=== PATIENT | female | born 1995 | race Caucasian/White ===

== ENCOUNTER → 2018-06-02 15:23 | Outpatient (CLI) | payer BC, SELFPAY ==
[2018-06-02 18:18] LABS: Chlamydia Trachomatis by PCR Negative (Negative); Neisserai gonorrhoeae by PCR Negative (Negative); Probe Check PASS; Sample Adequacy Control PASS; Specimen Processing Control PASS
[2018-06-06 10:29] LABS: HPV Reflexed? NOT INDICATED
== END ==
PROVIDERS: Family Provider Family Medicine; PCP Family Medicine; Visit Provider Obstetrics & Gynecology
DX: Z11.3 Encounter for screening for infections with a predominantly sexual mode of transmission (principal); Z12.4 Encounter for screening for malignant neoplasm of cervix; Z12.72 Encounter for screening for malignant neoplasm of vagina
CPT/HCPCS: 87491; 87591; 88175; G0145

== ENCOUNTER 2018-07-01 08:21 | Day surgery (SDC) | payer BC, SELFPAY ==
[2018-06-26 16:12] LABS: Hematocrit 43.4 % (37-47); Hemoglobin 14.6 g/dl (12.0-15.0); Mean Corp Hgb Conc 33.6 g/gl (32-36); Mean Corpuscular Hgb 27.8 pg (27.0-32.0); Mean Corpuscular Volume 82.5 fL (81-99); Mean Platelet Vol. 10.8 fl (6.2-12.0); Platelet Count 382 K/mm3 (150-450); RBC Distribution Width CV 12.8 % (11.6-14.6); RBC Distribution Width SD 38.6 fl (35.1-43.9); Red Blood Count 5.26 M/mm3 (4.2-5.4)
[2018-06-26 16:13] LABS: Scan Indicated on CBC? Y/N NO
[2018-06-26 16:21] LABS: Prothrombin Time (Protime)PT. 12.9 SECONDS (11.7-14.9)
[2018-06-26 16:22] LABS: Partial Thromboplast Time 32.6 Seconds (24.1-36.2)
[2018-06-26 16:42] LABS: Pregnancy, Serum, hCG Quali. NEGATIVE Negative (0-9 Nonpreg)
[2018-07-01] VITALS (7 sets, daily range): BP systolic 107–121; BP diastolic 35–68; PULSE 78–109; RESP 16; TEMP 36.3–36.6; O2SAT 90–99; BMI 41.3
[2018-07-01 09:01] LABS: Internal QC Validated? YES +Cl - CLEAR BKGD; Pregnancy, Urine Negative Negative
--- NOTE | 2018-07-01 10:00 | OV_PTH ---
PATIENT: DAVI CAMARA LOC: [facility] U#:[id number] AGE/SX: 23/F ROOM: RE07/01/[address]: Dr. Parish Desai MD : 1995 BED: DIS: 07/01/2018 SPEC #: [id number] RECD: 07/01/18 13:53 STATUS: TOM ISAAC #: [id number] MEENA: 07/01/18 10:[address]: Parish Desai DEPT: SURGICAL PATHOLOGY RECD BY: Mirian Cazares ENTERED: 07/01/18 14:22 SP TYPE: OVARY OTHR DR: Dr. Dhruv Walls MD Tissues: OVARIAN CYST Procedures: Surgery Specimen Level IV HEADER OPERATION: Diagnostic laparoscopy, excision left peritubal cyst PRE-OP DIAGNOSIS: Chronic pelvic and perineal pain TISSUE SUBMITTED: Peritubal cyst, left MICROSCOPIC DIAGNOSIS Left peritubal cyst, excision: Benign epithelial cyst. AM:edwin 07/02/18 COMMENT Case has been reviewed in consultation with Dr. Pastrana who concurs with the above diagnosis. IDC:BAHMAN MICROSCOPIC DESCRIPTION Slides are reviewed. GROSS DESCRIPTION Received in fixative is one container labeled with the patient's name and designated left paratubal cyst. The specimen consists of three variable size pieces of huff-white to huff-pink cystic tissue that in aggregate measure 1.5 x 1 x 0.2 cm. The entire specimen is submitted in one cassette. / BAHMAN:edwin 07/01/18 TC:5 CPT: 00235
--- NOTE | 2018-07-01 10:07 | PCM.DC ---
- Discharge Diagnoses Reason(s) for Visit for Discharge Instructions: S/P Diagnostic Laparoscopy You will use the following diet at home:: Regular Your food should be the consistency of: Regular Discharge Activity: Return to Normal Activity, No Restrictions, May Drive, May not drive while taking narcotic pain medications., May Shower Return to work on:: 07/15/18 May shower in (days): 0 May resume sexual activity in: 2 weeks Call your doctor if your incision/area has: Sudden Increased Bleeding, Increased Pain/ Swelling, Increased Redness, Foul Smelling Discharge, Swelling at the incision site Call your doctor if you observe: Fever of 101 or Higher, Inability to urinate, Inability to have a bowel movement, Using more than one pad per hour, Shortness of breath, Chest pain, Calf discomfort, Uncontrolled pain Remove Dressing in (days):: 2 Cleanse incision/area with: Soap & Water Allergies/Adverse Reactions: Allergies No Known Allergies Allergy (Verified 06/24/18 11:02) Medications to take at Discharge traMADol [Ultram (G)] 50 mg PO Q6H PRN PRN 06/24/18 Ibuprofen 600 mg PO Q6H PRN PRN #30 tab 07/01/18 Oxycodone [Oxyir] 5 mg PO Q4H PRN PRN 7 Days #20 tab 07/01/18 The following prescriptions were given: Oxycodone [Oxyir] 5 mg PO Q4H PRN PRN 7 Days #20 tab PRN Reason: Severe Pain (6-10/10) Ibuprofen 600 mg PO Q6H PRN PRN #30 tab PRN Reason: pain or cramping Primary Care Physician: Dhruv Walls MD [Primary Care Provider] - Test Results: Test results from this visit will be discussed in further detail at your follow-up appointment, if applicable. Please Follow Up With: Parish Desai MD When: one week Proposed Discharge Date: 07/01/18
--- NOTE | 2018-07-01 10:10 | PCM.OPRPT ---
Problem List (1) Pelvic pain Status: Chronic Report of Operation Date of Procedure: 07/01/18 Pre-Operative Diagnosis: Chronic Pelvic Pain Post-Operative Diagnosis: Same Surgery/Procedure Performed:: Diagnostic Laparoscopy, Left Paratubal Cystectomy Description of Surgical Findings:: Normal appearing uterus with some scarring between lower anterior uterus and bladder. No evidence of endometriosis. Normal appearing ovaries. Left fallopian tube with few small paratubal cysts. Right tube normal. Appendix surgically absent. Normal appearing liver. Gallbladder surgically absent. No unusual abdominal or pelvic scarring. limehouse worker: Luciano Marti Type of Anesthesia:: General Anesthesiologist: Karlo Talamantes Special Medications: none Specimen's removed: Left paratubal cysts Drains: none Estimated Blood Loss (mL): Minimal Fluids Replaced: 1000cc LR Description of Procedure: Stephanie was taken to the OR with IV running. She was given 2 grams of Cefotetan intravenously prior to the case for surgical prophylaxis. SCDs were in place and operational throughout the case. General anesthesia was then introduced without complication. She was then prepped and draped in the dorsal lithotomy position. A red rubber catheter was used to drain the bladder. A uterine manipulator was placed. Attention was then directed to the abdomen where a 5 mm incision was made vertically in the lower base of the umbilicus. The underlying subcutaneous tissue was dissected down to the level of fascia using blunt dissection with a Erma clamp. The abdominal wall was then elevated and a Veress needle was placed through the umbilical defect into the abdomen. The abdomen was then inflated to a pressure of 15 Torr with CO2 gas. The Veress needle was then removed and replaced with a 5mm laparoscopic trocar and sleeve. The trocar was removed and replaced with the laparoscope. Two 5 mm side ports were placed. One was placed on the left side and one on the right approximately 3 cm below the level of the umbilicus lateral to the inferior epigastric vessels. A thorough survey of the abdomen and pelvis was then performed with findings as mentioned above. Using the endoshears the left paratubal cysts were resected and removed through the lateral side port. The laparoscopic ports were then removed under direct observation with the laparoscope. Hemostasis was excellent. The gas was evacuated from the umbilical port. The skin incisions were closed with 4-0 Monocryl suture and injected with 0.5% Marcaine. The uterine manipulator was removed. Sponge, lap, instrument and needle counts were correct. She was reversed from anesthesia and taken to the recovery room in stable condition. Grafts/Implants Used: none - Complications none - Admit VTE Documentation VTE Present on Admission: No VTE Mechan Device Prophylaxis: SCD's VTE Pharm Prophylaxis ordered?: No
[2018-07-01] MEDS: Bupivacaine Mpf 0.5% 30 ML VIAL (10:30)
[2018-07-01] MEDS: oxyCODONE 5 MG Tablet PO (11:55)
== END 2018-07-01 13:02 | disposition home or self-care (01) ==
LOC: SDC 08:21 → AC 08:23
PROVIDERS: Family Provider Family Medicine; PCP Family Medicine; Visit Provider Obstetrics & Gynecology
PROC: (CPT 49320; principal; 2018-07-01 09:45)
DX: L72.0 Epidermal cyst (principal); G89.29 Other chronic pain; R10.2 Pelvic and perineal pain; N83.8 Other noninflammatory disorders of ovary, fallopian tube and broad ligament; Z86.711 Personal history of pulmonary embolism
CPT/HCPCS: 58662; 36415; 81025; 84703; 85027; 85610; 85730; 86850; 86900; 88305; J7120; J2405

== ENCOUNTER → 2018-08-26 11:51 | Outpatient (CLI) | payer BC, SELFPAY ==
[2018-08-26 14:38] LABS: Chlamydia Trachomatis by PCR Negative (Negative); Neisserai gonorrhoeae by PCR Negative (Negative); Probe Check PASS; Sample Adequacy Control PASS; Specimen Processing Control PASS
== END ==
PROVIDERS: Visit Provider Obstetrics & Gynecology
DX: Z11.3 Encounter for screening for infections with a predominantly sexual mode of transmission (principal); Z32.01 Encounter for pregnancy test, result positive
CPT/HCPCS: 87491; 87591

== ENCOUNTER → 2018-09-09 10:25 | Outpatient (CLI) | payer BC, SELFPAY ==
[2018-09-09 12:40] LABS: Absolute Neutrophil Count 6.4 X10^3/uL (2.0-7.7); Basophil# 0.02 X10^3/uL; Basophil% 0.2 % (0-1); Eosinophil# 0.07 X10^3/uL; Eosinophils% 0.7 % (0-5); Hematocrit 38.7 % (37-47); Hemoglobin 13.1 g/dl (12.0-15.0); Lymphocyte % 26.2 % (19-41); Mean Corp Hgb Conc 33.9 g/gl (32-36); Mean Corpuscular Hgb 27.3 pg (27.0-32.0); Mean Corpuscular Volume 80.8 fL (81-99); Mean Platelet Vol. 10.8 fl (6.2-12.0); Monocyte# 0.81 X10^3/uL; Monocyte% 8.2 % (0-10); Neutrophil # 6.39 X10^3/uL (2.7-7.7); Neutrophil % 64.5 % (47-70); Platelet Count 378 K/mm3 (150-450); RBC Distribution Width CV 13.3 % (11.6-14.6); RBC Distribution Width SD 38.2 fl (35.1-43.9); Red Blood Count 4.79 M/mm3 (4.2-5.4); White Blood Count 9.9 K/mm3 (4.4-11.0)
[2018-09-09 12:41] LABS: POSITIVE COUNT NO; POSITIVE DIFFERENTIAL NO; POSITIVE MORPHOLOGY NO
[2018-09-09 12:52] LABS: Color, Urine Yellow (Yellow); Glucose, Dipstick Normal (Normal); Ketone-Dipstick Negative (Negative); Leukocyte Esterase-Dipstick 25 /ul (Negative); Nitrite-Dipstick Negative (Negative); Occult Blood-Urine Negative /ul (Negative); Protein-Dipstick Negative (Negative); Urine Bilirubin Dipstick Negative (Negative); Urine Clarity Clear (Clear); Urine Urobilinogen Normal (Normal); Urine pH 6.5 (5.0 - 8.0)
[2018-09-09 13:01] LABS: COTININE Drug Screen Negative (<200 ng/mL)
[2018-09-09 13:08] LABS: Amphetamine Urine VISTA NEGATIVE (<1000 ng/mL); Barbiturate Urine VISTA NEGATIVE (< 200 ng/mL); Benzodiazepine Urine VISTA NEGATIVE (< 200 ng/mL); Cocaine Urine VISTA NEGATIVE (< 300 ng/mL); Ecstacy Urine VISTA NEGATIVE (< 500 ng/mL); Methadone Urine VISTA NEGATIVE (< 300 ng/mL); PCP Urine VISTA NEGATIVE (< 25 ng/mL); THC Urine VISTA NEGATIVE (< 50 ng/mL); Vista UDS pH Range 6
[2018-09-09 13:20] LABS: Thyroid Stim Hormone (TSH) 2.29 uIU/mL (0.358-3.74)
[2018-09-09 13:44] LABS: HIV - WCH Non-Reactive (Nonreactive); Rubella IgG 91.3 IU/mL
[2018-09-11 01:58] LABS: Prenatal RPR NONREACTIVE (NONREACTIVE)
[2018-09-11 11:12] LABS: HEPATITIS B SURFACE AG Negative (Negative); Hep C Antibodies <0.1 s/co ratio (0.0-0.9)
== END ==
PROVIDERS: Visit Provider Obstetrics & Gynecology
DX: Z34.81 Encounter for supervision of other normal pregnancy, first trimester (principal)
CPT/HCPCS: 36415; 80307; 81002; 84443; 85025; 86703; 86762; 86803; 87340

== ENCOUNTER → 2019-01-28 10:16 | Outpatient (CLI) | payer BC, SELFPAY ==
[2019-01-28 13:53] LABS: Hemoglobin 11.8 g/dl (12.0-15.0); Mean Corp Hgb Conc 32.8 g/gl (32-36); Mean Corpuscular Hgb 27.8 pg (27.0-32.0); Mean Corpuscular Volume 84.7 fL (81-99); Mean Platelet Vol. 10.6 fl (6.2-12.0); Platelet Count 309 K/mm3 (150-450); RBC Distribution Width SD 42.2 fl (35.1-43.9); Red Blood Count 4.25 M/mm3 (4.2-5.4); Scan Indicated on CBC? Y/N NO; White Blood Count 9.8 K/mm3 (4.4-11.0)
[2019-01-28 13:58] LABS: AST(SGOT) 10 U/L (15-37); Alanine Aminotransfer ALT/SGPT 16 U/L (13-56); Glucose Challenge Gest 1H 50g 179 mg/dL (70-140)
== END ==
PROVIDERS: Visit Provider Obstetrics & Gynecology
DX: Z34.83 Encounter for supervision of other normal pregnancy, third trimester (principal)
CPT/HCPCS: 36415; 82950; 84450; 84460; 84550; 85027

== ENCOUNTER → 2019-02-01 09:50 | Outpatient (CLI) | payer BC, SELFPAY ==
[2019-02-01 11:32] LABS: Glucose GTT-Gestational 1 Hr 186 mg/dL (<190)
[2019-02-01 11:33] LABS: Glucose GTT-Gestation. Fasting 94 mg/dL (<105)
[2019-02-01 12:51] LABS: Glucose GTT-Gestational 2 Hr 124 mg/dL (<165)
[2019-02-01 14:25] LABS: Glucose GTT-Gestational 3 Hr 96 L (<145)
== END ==
PROVIDERS: Referring Provider Obstetrics & Gynecology; Visit Provider Obstetrics & Gynecology
DX: O24.912 Unspecified diabetes mellitus in pregnancy, second trimester (principal); Z3A.00 Weeks of gestation of pregnancy not specified
CPT/HCPCS: 36415; 82951; 82952

== ENCOUNTER 2019-02-21 14:45 | Outpatient (CLI) | payer BC, SELFPAY ==
[2019-02-21 14:59] VITALS: BMI 42.2
[2019-02-21 15:36] LABS: Bacteria 0 SEEN /hpf (None Seen); Mucous, Urine 0 SEEN /hpf (<or=2+); Red Blood Cells-Urine 0 SEEN /hpf (0-5); Squamous Epithelial Cells - UA 0 SEEN /hpf (5-10)
[2019-02-21 15:38] LABS: Color, Urine Straw (Yellow); Glucose, Dipstick Normal (Normal); Ketone-Dipstick 5 mg/dl (Negative); Leukocyte Esterase-Dipstick 100 /ul (Negative); Nitrite-Dipstick Negative (Negative); Occult Blood-Urine 250 /ul (Negative); Protein-Dipstick 30 mg/dl (Negative); Specific Gravity, Urine 1.015 (1.002-1.030); Urine Bilirubin Dipstick Negative (Negative); Urine Clarity Cloudy (Clear); Urine Urobilinogen Normal (Normal)
[2019-02-21 15:44] LABS: White Blood Cells 50-100 SEEN /hpf (0-5)
--- NOTE | 2019-02-21 18:00 | OB.TRI.NOTE ---
History of Present Illness Date of Service: 02/21/19 Was patient seen by the physician?: No Reason For Visit: RULE OUT PRE E/Abdominal pain Date of Service: 02/21/19 Final CORA: 04/21/19 Final CORA Source: US <20 weeks Gestational age: 31 Weeks and 4 Days History of Present Illness: Complains of abdominal pain but not contraction like. Is worried about blood pressure Allergies No Known Allergies Allergy (Verified 06/24/18 11:02) Laboratory Studies: Laboratory Tests 02/21/19 Range/Units 15:30 Urine Color Straw (Yellow) Urine Clarity Cloudy (Clear) Urine pH 7.0 (5.0 - 8.0) Ur Specific [place] 1.015 (1.002-1.030) Urine Protein 30 H (Negative) mg/dl Urine Glucose (UA) Normal (Normal) mg/dl Urine Ketones 5 H (Negative) mg/dl Urine Occult Blood 250 H (Negative) /ul Urine Nitrite Negative (Negative) Urine Bilirubin Negative (Negative) mg/dL Urine Urobilinogen Normal (Normal) mg/dl Ur Leukocyte Esterase 100 H (Negative) /ul Urine RBC 0 SEEN (0-5) /hpf Urine WBC 50-100 SEEN (0-5) /hpf Ur Squamous Epith Cells 0 SEEN (5-10) /hpf Urine Bacteria 0 SEEN (None Seen) /hpf Urine Mucus 0 SEEN (<or=2+) /hpf Review of Systems Constitutional: Denies: Chills, Fever Cardiovascular: Denies: Chest Pain, Chest Pressure, Edema Respiratory: Denies: Cough, Shortness of Breath Gastrointestinal: Reports: Abdominal Pain - lower wrapping around to back Genitourinary: Reports: Frequency Neurological: Denies: Blurred vision, Double vision, Headaches Physical Exam General: Alert, Oriented x3, Cooperative, No apparent distress Lungs: Clear to auscultation, Normal air movement Abdomen: Soft, Non Tender, Non-Distended, Gravid, Appropriate for Gestational Age Extremities:: No edema Neurological: Neuro grossly intact BIOPROCESS DEVELOPMENT ENGINEER: Normal external genitalia Estimated gestational size: Appropriate for gestational size NST - FHR Rate Baby A Baseline: 150s Variability:: Moderate Accelerations:: 15 x 15 Decelerations:: None NST Reactive:: Yes, Appropriate for gestational age FHR Category:: Category I Uterine Activity:: none Impression/Plan BPs normal here with no signs of preeclampsia. Not in labor. Urinalysis with blood and WBC. Will treat for possible UTI.
== END 2019-02-21 16:00 | disposition home or self-care (01) ==
LOC: WPOUT 14:48 → WP 02-22 15:26
PROVIDERS: Visit Provider Obstetrics & Gynecology
DX: O26.893 Other specified pregnancy related conditions, third trimester (principal); R10.9 Unspecified abdominal pain; Z3A.31 31 weeks gestation of pregnancy
CPT/HCPCS: 59025; 59050; 81001; 99218; G0378

== ENCOUNTER 2019-02-22 16:50 | Outpatient (CLI) | payer BC, SELFPAY ==
[2019-02-21 14:59] VITALS: BMI 42.2
[2019-02-22 17:05] VITALS: BMI 42.3
[2019-02-22] MEDS: Phenazopyridine 95 MG Tablet 190 MG PO (17:49)
[2019-02-22 20:49] LABS: Absolute Lymphocyte Count 3.71 X10^3/ul (0.83-4.51); Absolute Neutrophil Count 8.5 X10^3/uL (2.0-7.7); Basophil# 0.03 X10^3/uL; Basophil% 0.2 % (0-1); Eosinophil# 0.05 X10^3/uL; Eosinophils% 0.4 % (0-5); Hematocrit 35.1 % (37-47); Hemoglobin 11.9 g/dl (12.0-15.0); Lymphocyte # 3.71 X10^3/ul (4.0); Lymphocyte % 28.1 % (19-41); Mean Corp Hgb Conc 33.9 g/gl (32-36); Mean Corpuscular Hgb 27.9 pg (27.0-32.0); Mean Corpuscular Volume 82.4 fL (81-99); Mean Platelet Vol. 10.3 fl (6.2-12.0); Monocyte# 0.85 X10^3/uL; Monocyte% 6.4 % (0-10); Neutrophil # 8.49 X10^3/uL (2.7-7.7); Neutrophil % 64.4 % (47-70); POSITIVE COUNT NO; POSITIVE DIFFERENTIAL NO; POSITIVE MORPHOLOGY NO; Platelet Count 264 K/mm3 (150-450); RBC Distribution Width SD 41.8 fl (35.1-43.9); Red Blood Count 4.26 M/mm3 (4.2-5.4); White Blood Count 13.2 K/mm3 (4.4-11.0)
[2019-02-22 20:57] LABS: Anion Gap 10 (5-15); Chloride 108 mmol/L (98-107); Potassium 3.5 mmol/L (3.5-5.1); Sodium Level 139 mmol/L (136-145)
[2019-02-22] MEDS: Cefazolin 2 GM in 0.9% Normal Saline 100 ML IV (21:20)
[2019-02-22] MEDS: Acetaminophen 500 MG Tablet 1000 MG PO (22:04)
[2019-02-22] MEDS: Enoxaparin 60 MG/0.6 ML Syringe SC (23:21)
[2019-02-23] MEDS: Terbutaline 1 MG/ML Vial 0.25 MG SC (01:21)
[2019-02-23] MEDS: Dextrose 5%-Lactated Ringers 1,000 ML 150 ML IV (02:36)
[2019-02-23] MEDS: morphine 10 MG/ML Syringe IM (04:03)
[2019-02-23] MEDS: Cefazolin 1 GM/50 ML BAG IV ×2 (04:40→12:30)
--- NOTE | 2019-02-23 06:48 | OB.TRI.HP_ITS ---
History of Present Illness Was patient seen by the physician?: Yes Reason For Visit: BACK PAIN Date of Service: 02/23/19 Final CORA Source: US <20 weeks Gestational age: 31+ weeks History of Present Illness: 31+ week intrauterine presents with right lower back pain. Patient is being treated for urinary tract infection with Macrobid and her pain became increasingly worse. She describes the pain is constant and dull and more severe than she has had in the past. Some crampiness is noted in the front. Allergies No Known Allergies Allergy (Verified 06/24/18 11:02) Laboratory Studies: Laboratory Tests 02/22/19 02/22/19 Range/Units 20:35 20:35 WBC 13.2 H (4.4-11.0) K/mm3 RBC 4.26 (4.2-5.4) M/mm3 Hgb 11.9 L (12.0-15.0) g/dl Hct 35.1 L (37-47) % MCV 82.4 (81-99) fL MCH 27.9 (27.0-32.0) pg MCHC 33.9 (32-36) g/gl RDW 14.0 (11.6-14.6) % RDW Differential 41.8 (35.1-43.9) fl Plt Count 264 (150-450) K/mm3 MPV 10.3 (6.2-12.0) fl Immature Gran % (Auto) 0.500 (0.0-0.9) % Neut % (Auto) 64.4 (47-70) % Lymph % (Auto) 28.1 (19-41) % Paulding % (Auto) 6.4 (0-10) % Eos % (Auto) 0.4 (0-5) % Baso % (Auto) 0.2 (0-1) % Absolute Neuts (auto) 8.5 H (2.0-7.7) X10^3/uL Absolute Lymphs (auto) 3.71 (0.83-4.51) X10^3/ul Total Counted Not Reportable Sodium 139 (136-145) mmol/L Potassium 3.5 (3.5-5.1) mmol/L Chloride 108 H (98-107) mmol/L Carbon Dioxide 21.0 (21.0-32.0) mmol/L Anion Gap 10 (5-15) Physical Exam General: Alert, Oriented x3, No apparent distress Abdomen: Non-Distended, Gravid Extremities:: No clubbing, No cyanosis Neurological: Cranial nerves II-XII grossly intact, Neuro grossly intact NST - FHR Rate Baby A NST Reactive:: Appropriate for gestational age Impression/Plan 31+ week intrauterine with low back pain likely from urinary tract inf ection. Monitored overnight and heart tones are reactive with occasional decelerations consistent with 31 weeks gestation. Patient has been given 2 doses of IV Ancef and we plan to resume Macrobid at home. Overnight she was also given Demerol and IM morphine to help control her pain. Some intermittent irritability on monitor but cervical exam is nonthreatening and not changing. Anticipate release to home later today.
--- NOTE | 2019-02-23 08:20 | US_ITS ---
STUDY: RENAL ULTRASOUND - COMPLETE REASON FOR EXAM: Female, 24 years old. Right flank pain. TECHNIQUE: Ultrasound evaluation of the kidneys was performed with real-time and static ha-scale imaging. COMPARISON: None. FINDINGS: RIGHT KIDNEY: Normal location of the right kidney, which is normal in size. The right kidney measures 11.9 cm x 7.2 cm x 5.3 cm. There is a normal cortex of the right kidney. The renal cortex measures 1.5 cm. There is no right renal mass or cyst. There are no right renal calculi. There is mild hydronephrosis of the right kidney. DISTAL RIGHT URETER: There is non-visualization of the distal right ureter. There is no demonstrated right ureterovesical junction calculus. There is a visualized right ureteral jet. LEFT KIDNEY: Normal location of the left kidney, which is normal in size. The left kidney measures 12.1 cm x 5.1 cm x 5.1 cm. There is a normal cortex of the left kidney. The renal cortex measures 1.1 cm. There is no left renal mass or cyst. There are no left renal calculi. There is no left hydronephrosis. DISTAL LEFT URETER: There is non-visualization of the distal left ureter. There is no demonstrated left ureterovesical junction calculus. There is a visualized left ureteral jet. BLADDER: The distended urinary bladder has a volume of 610 ml. The empty urinary bladder has a volume of 26 ml. There is a normal wall thickness of the distended urinary bladder. There is no demonstrated mass within the urinary bladder. There are no demonstrated bladder calculi. Incidental note is made of a 2.4 cm x 1.9 cm x 1.9 cm echogenic nodule in the right lobe of liver suggestive of a small hepatic hemangioma. US/Kidney and Bladder IMPRESSION: Mild degree of left hydronephrosis. Electronically Signed: Erik Hardwick, at 11:13 EDT , Service support ,
[2019-02-23] MEDS: oxyCODONE 5 MG Tablet PO (09:32)
[2019-02-23] MEDS: Acetaminophen 500 MG Tablet 1000 MG PO (12:28)
--- NOTE | 2019-02-23 12:37 | PCM.PN.OB ---
Subjective: Still having right flank and low back pain Objective: Afeb VSS - Physical Exam General: Alert, Oriented x3, Cooperative, No apparent distress Lungs: Clear to auscultation, Normal air movement Cardiovascular: Regular rate, Regular Rhythm Abdomen: Soft, Non Tender, Non-Distended Extremities: No edema Skin: No rashes Neurological: Neuro grossly intact Psych/Mental Status: Normal Affect Comment: FHR tracing CAT 1 Weight: 209 lb 3.499 oz Body Mass Index (BMI) 42.3 Intake and Output for Last 24 Hours 02/21/19 02/22/19 02/23/19 23:59 23:59 23:59 Intake Total 1918 / 1918 Output Total 775 / 775 Balance 1144 / 1144 Laboratory Tests Past 24 Hrs 02/22/19 02/22/19 20:35 20:35 WBC 13.2 H RBC 4.26 Hgb 11.9 L Hct 35.1 L MCV 82.4 MCH 27.9 MCHC 33.9 RDW 14.0 RDW Differential 41.8 Plt Count 264 MPV 10.3 Immature Gran % (Auto) 0.500 Neut % (Auto) 64.4 Lymph % (Auto) 28.1 Dickenson % (Auto) 6.4 Eos % (Auto) 0.4 Baso % (Auto) 0.2 Absolute Neuts (auto) 8.5 H Absolute Lymphs (auto) 3.71 Total Counted Not Reportable Sodium 139 Potassium 3.5 Chloride 108 H Carbon Dioxide 21.0 Anion Gap 10 Medical Necessity - Tobacco Use Smoking Status: Never smoker Assessment/Plan Renal US normal. Will continue to treat for possible pyelonephritis. Will discharge home on Keflex and oxycodone for pain. Has f/u with me in 2 days.
--- NOTE | 2019-02-23 12:41 | DCINST_ITS ---
You will use the following diet at home:: Regular Your food should be the consistency of: Regular Discharge Activity: Return to Normal Activity, May Drive, May not drive while taking narcotic pain medications., May Shower, May Take a Tub Bath Return to work on:: 03/01/19 May shower in (days): 0 May resume sexual activity in: No Restrictions Call your doctor if your incision/area has: Increased Pain/ Swelling Call your doctor if you observe: Fever of 101 or Higher, Inability to urinate, Inability to have a bowel movement, Using more than one pad per hour, Shortness of breath, Chest pain, Calf discomfort, Uncontrolled pain Allergies/Adverse Reactions: Allergies No Known Allergies Allergy (Verified 06/24/18 11:02) Medications to take at Discharge Enoxaparin Sodium [Lovenox] 60 mg SQ DAILY 02/21/19 Quq285/Iron/Folic/Dha [ Formula-Dha Softgel] 1 each PO DAILY 02/21/19 Cephalexin [Keflex] 500 mg PO Q12 #14 cap 02/23/19 Oxycodone [Oxyir] 5 mg PO Q6H PRN PRN 7 Days #20 tab 02/23/19 The following prescriptions were given: Oxycodone [Oxyir] 5 mg PO Q6H PRN PRN 7 Days #20 tab PRN Reason: strong pain Cephalexin [Keflex] 500 mg PO Q12 #14 cap Primary Care Physician: Care Physician,No Primary [Primary Care Provider] - Test Results: Test results from this visit will be discussed in further detail at your follow- up appointment, if applicable. Please Follow Up With: Parish Desai MD When: 2 days as scheduled Proposed Discharge Date: 02/23/19
== END 2019-02-23 13:42 | disposition home or self-care (01) ==
LOC: WPOUT 16:54 → WP 16:55
PROVIDERS: Referring Provider Obstetrics & Gynecology; Visit Provider Obstetrics & Gynecology
DX: O23.43 Unspecified infection of urinary tract in pregnancy, third trimester (principal); O76 Abnormality in fetal heart rate and rhythm complicating labor and delivery; Z3A.31 31 weeks gestation of pregnancy
CPT/HCPCS: 36415; 59025; 59050; 76770; 80051; 85025; 96372; 99218; G0378

== ENCOUNTER → 2019-03-10 18:03 | Outpatient (CLI) | payer BC, SELFPAY ==
[2019-02-22 17:05] VITALS: BMI 42.3
== END ==
PROVIDERS: Referring Provider Obstetrics & Gynecology; Visit Provider Obstetrics & Gynecology
DX: O23.43 Unspecified infection of urinary tract in pregnancy, third trimester (principal); Z3A.00 Weeks of gestation of pregnancy not specified
CPT/HCPCS: 87086; 87088

== ENCOUNTER → 2019-03-25 10:29 | Outpatient (CLI) | payer BC, SELFPAY | PROVIDERS: Visit Provider Obstetrics & Gynecology | DX: Z36.85 Encounter for antenatal screening for Streptococcus B (principal) | CPT/HCPCS: 87081 ==

== ENCOUNTER 2019-04-15 09:30 | Inpatient (IN) | payer BC, SELFPAY ==
[2019-04-15] VITALS (18 sets, daily range): BP systolic 102–133; BP diastolic 49–90; PULSE 75–112; RESP 16–20; TEMP 36.3–37.2; O2SAT 94–99; BMI 41.6
--- NOTE | 2019-04-15 04:38 | OP.PCM_ITS ---
Report of Operation Date of Procedure: 04/15/19 Pre-Operative Diagnosis: Previous Section Post-Operative Diagnosis: Same Surgery/Procedure Performed:: Repeat Low Transverse Section Description of Surgical Findings:: Some subcuticular scarring otherwise no significant abdominal scarring. Normal appearing uterus, ovaries, and fallopian tubes. Live female in vertex presentation. Apgars 9/9 weight [id number]. Normal appearing placenta. one piece expansion maker hand: Shraddha Seaman Type of Anesthesia:: Spinal Anesthesiologist: Allan Madden Special Medications: none Specimen's removed: none Drains: case Estimated Blood Loss (mL): 400cc Fluids Replaced: 1000cc LR Description of Procedure: Stephanie was taken to the OR with IV running. She was given two grams of Cefotetan intravenously for surgical prophylaxis. Spinal anesthesia was induced without complication. A case catheter was placed. She was then prepped and draped in the supine position with a leftward tilt. Once anesthesia was found to be adequate a Pfannensteil skin incision was made with the scalpel through the previous scar. The underlying subcutaneous tissue was then dissected down to the level of the fascia with sharp and blunt dissection. The fascia was then incised laterally in the midline. This incision was extended bilaterally using the Shabazz scissors. The upper portion of the fascial defect was then grasped with two Nidhi clamps, elevated and the rectus muscles dissected off with blunt and sharp dissection. In a similar fashion the rectus muscles were dissected off the lower fascial defect. The rectus muscles were in the midline. The peritoneum was identified and entered. The peritoneal defect was then extended using blunt retraction. A bladder blade was then placed. A bladder flap was then created and the bladder blade replaced. The lower uterine incision was incised in a transverse fashion. Once the cavity was entered the uterine defect was enlarged using blunt lateral and superior traction. The baby's head was then delivered with assist of the Kiwi device (one quick gentle pull) followed by the body. The mouth was then suctioned with a bulb suction. The cord was then clamped and cut. The baby was handed to the waiting nurse for evaluation. The placenta was then delivered manually. The uterus was exteriorized and cleared of all clot and membranes. The uterine incision was then repaired in two layers with #1 Vicryl with good hemostasis obtained. The posterior cul de sac and gutters were cleared of all clot and fluid. The uterus was returned to the abdomen. The peritoneum was then closed with 2-0 Vicryl. The rectus muscles were reapproximated with interrupted sutures of 0-Vicryl. The fascia was closed with a running stitch of #1 Stratofix suture. The subcutaneous tissue was reapproximated with 2-0 Vicryl. The skin was closed with a subcuticular stitch of 4-0 Monocryl. Sponge, lap, needle and instrument counts were correct. Stephanie was taken to the recovery room is stable condition. Grafts/Implants Used: none - Complications none - Admit VTE Documentation VTE Present on Admission: No VTE Mechan Device Prophylaxis: SCD's VTE Pharm Prophylaxis ordered?: Yes Delivery Classification: Scheduled Final CORA: 04/22/19 Final CORA Source: US <20 weeks Gestational age: 39 Weeks and 0 Days Indications for : - - three previous C/S Description of Procedure: she operative note portion Amniotic Membrane Rupture Type: Artificial Amniotic Fluid Description: Clear Placenta Disposition: [facility] Drain: Case to straight drain Cord Entanglement: None Nuchal Cord Compression: Without compression Cord Vessel Description: 3 Vessels Esitmated Blood Loss (ml): 400cc Gender: Female (1 minute): 9 (5 minute): 9 Delayed cord clamping: Yes Pre-op Antibiotic Given: Ancef 2 grams IV x1 Pt instructed on risks of surgery: Bleeding, Infection, Injury to surrounding structure(s) including bowel and bladder Complications: None - Admit VTE Documentation VTE Present on Admission: No VTE Mechan Device Prophylaxis: SCD's VTE Pharm Prophylaxis ordered?: Yes
[2019-04-15] MEDS: Lactated Ringers 1,000 ML 999 ML IV (10:15)
[2019-04-15 10:27] LABS: Absolute Lymphocyte Count 2.57 X10^3/ul (0.83-4.51); Absolute Neutrophil Count 5.4 X10^3/uL (2.0-7.7); Basophil# 0.02 X10^3/uL; Basophil% 0.2 % (0-1); Eosinophil# 0.06 X10^3/uL; Eosinophils% 0.7 % (0-5); Hematocrit 34.9 % (37-47); Hemoglobin 11.8 g/dl (12.0-15.0); Lymphocyte # 2.57 X10^3/ul (4.0); Lymphocyte % 28.8 % (19-41); Mean Corp Hgb Conc 33.8 g/gl (32-36); Mean Corpuscular Hgb 27.8 pg (27.0-32.0); Mean Corpuscular Volume 82.1 fL (81-99); Mean Platelet Vol. 10.5 fl (6.2-12.0); Monocyte# 0.88 X10^3/uL; Monocyte% 9.9 % (0-10); Neutrophil # 5.36 X10^3/uL (2.7-7.7); Platelet Count 225 K/mm3 (150-450); RBC Distribution Width CV 14.4 % (11.6-14.6); RBC Distribution Width SD 42.9 fl (35.1-43.9); Red Blood Count 4.25 M/mm3 (4.2-5.4); White Blood Count 8.9 K/mm3 (4.4-11.0)
[2019-04-15 10:28] LABS: POSITIVE COUNT NO; POSITIVE DIFFERENTIAL NO; POSITIVE MORPHOLOGY NO
[2019-04-15 10:38] LABS: Prothrombin Time (Protime)PT. 13.4 SECONDS (11.7-14.9)
[2019-04-15 10:39] LABS: Partial Thromboplast Time 25.2 Seconds (24.1-36.2)
[2019-04-15] MEDS: Lactated Ringers 1,000 ML 150 ML IV (11:51)
[2019-04-15] MEDS: Sodium Citrate/Citric Acid 30 ML UDC PO (12:00)
[2019-04-15] MEDS: Cefazolin 2 GM in 0.9% Normal Saline 100 ML IV (12:07)
--- NOTE | 2019-04-15 12:14 | DCINST_ITS ---
Discharge Diet: No Restrictions Discharge Activity: Return to Normal Activity, May Not Drive, May not drive while taking narcotic pain medications., May Shower Return to work on:: 06/15/19 May shower in (days): 0 May resume sexual activity in: 4 weeks Call your doctor if your incision/area has: Sudden Increased Bleeding, Increased Pain/ Swelling, Increased Redness, Foul Smelling Discharge, Swelling at the incision site Call your doctor if you observe: Fever of 101 or Higher, Inability to urinate, Inability to have a bowel movement, Using more than one pad per hour, Shortness of breath, Chest pain, Calf discomfort, Uncontrolled pain Remove Dressing in (days):: 5 Cleanse incision/area with: Soap & Water Additional Instructions: If you experience any of the following, contact your healthcare provider. * Bleeding that soaks a pad every hour for 2 hours * Fever 100.4 or higher * Unrelieved incision or abdominal pain * Swelling, redness, discharge or bleeding from your incision or episiotomy site * Your incision begins to separate * Problems urinating (including inability to urinate or burning while urina ting). * Visual changes * Severe headache * Flu-like symptoms * Pain or redness in one of both of your breasts * Pain, warmth, tenderness or swelling in your legs, especially the calf area * Frequent nausea and vomiting * Symptoms of depression or anxiety If you experience any of the following, call 911 or go to the nearest Emergency Room. * Chest pain * Problems breathing * Seizure activity * Partial or complete paralysis of a body part, slurred speech, weakness or drooping of the face, or a sudden inability to walk or hold your balance Allergies/Adverse Reactions: Allergies No Known Allergies Allergy (Verified 06/24/18 11:02) Medications to take at Discharge Enoxaparin Sodium [Lovenox] 60 mg SQ DAILY 02/21/19 [id number]/Iron/Folic/Dha [ Formula-Dha Softgel] 1 each PO DAILY 02/21/19 Cephalexin [Keflex] 500 mg PO Q12 #14 cap 02/23/19 Heparin Sodium,Porcine/Pf [Heparin Sod 5,000 Unit/0.5 ml] 5,000 unit SQ BID 04/15/19 Ibuprofen [Motrin] 600 mg PO Q6H PRN PRN #30 tab 04/15/19 Oxycodone [Oxyir] 5 - 10 mg PO Q4H PRN PRN 7 Days #30 tab 04/15/19 The following prescriptions were given: Oxycodone [Oxyir] 5 - 10 mg PO Q4H PRN PRN 7 Days #30 tab PRN Reason: Mod-Severe Pain (4-1010) Ibuprofen [Motrin] 600 mg PO Q6H PRN PRN #30 tab PRN Reason: Mild Pain (1-01/17) Follow-Up: Call to make an appointment with your doctor for an incision check in 1-2 weeks. You will also need a 6 week post- follow up appointment. Test results from this visit will be discussed in further detail at your follow- up appointment, if applicable. Please Follow Up With: Parish Desai MD When: one week Primary Care Physician: Care Physician,No Primary [Primary Care Provider] - Proposed Discharge Date: 04/17/19
[2019-04-15] MEDS: Oxytocin 30 units/NS 500 ml 30 UNITS/500 ML IV.SOLN 167 UNITS IV (12:39)
[2019-04-15] MEDS: Lactated Ringers 1,000 ML 100 ML IV ×2 (13:20→17:24)
[2019-04-15] MEDS: Nalbuphine 10 MG/ML Ampul 5 MG IV ×2 (14:12→17:44)
[2019-04-15] MEDS: Ketorolac 30 MG/ML Syringe IV ×2 (16:36→23:53)
[2019-04-15] MEDS: Enoxaparin 60 MG/0.6 ML Syringe SC (17:44)
[2019-04-15] MEDS: Cefazolin 1 GM/50 ML BAG IV (18:19)
--- NOTE | 2019-04-15 21:02 | NURSING ---
Catheter present on assessment this shift. Placed on admission; however, unsure of exact time and by whom.
[2019-04-15] MEDS: Acetaminophen 500 MG Tablet 1000 MG PO (21:26)
[2019-04-16] VITALS (9 sets, daily range): BP systolic 112–135; BP diastolic 58–88; PULSE 68–100; RESP 16–18; TEMP 36–36.9; O2SAT 97–99
[2019-04-16] MEDS: Ketorolac 30 MG/ML Syringe IV ×2 (02:43→08:56)
[2019-04-16] MEDS: Cefazolin 1 GM/50 ML BAG IV (02:47)
[2019-04-16 05:08] LABS: Hematocrit 31.1 % (37-47); Hemoglobin 10.7 g/dl (12.0-15.0); Mean Corp Hgb Conc 34.4 g/gl (32-36); Mean Corpuscular Hgb 28.5 pg (27.0-32.0); Mean Corpuscular Volume 82.7 fL (81-99); Mean Platelet Vol. 10.5 fl (6.2-12.0); Platelet Count 207 K/mm3 (150-450); RBC Distribution Width CV 14.6 % (11.6-14.6); RBC Distribution Width SD 42.3 fl (35.1-43.9); Red Blood Count 3.76 M/mm3 (4.2-5.4); Scan Indicated on CBC? Y/N NO; White Blood Count 10.9 K/mm3 (4.4-11.0)
[2019-04-16] MEDS: Nalbuphine 10 MG/ML Ampul 5 MG IV (05:08)
--- NOTE | 2019-04-16 07:32 | PN.OBGYN_ITS ---
Subjective: POD#1 Repeat C/S Doing OK. Sore. Objective: lying in bed. NAD. Hansen cath in place, concentrated appearing urine noted. - Physical Exam General: Alert, Oriented x3, Cooperative, No apparent distress HEENT: Atraumatic Neck: Supple Abdomen: Soft - Fundus firm , tender c/w postop status and at 1-2 cm inferior to umbilicus Skin: Incision - Mepilex CDI. Neurological: Cranial nerves II-XII grossly intact Psych/Mental Status: Normal Affect Vital Signs Temp Pulse Resp BP Pulse Ox 96.8 F L 68 18 119/58 L 98 04/16/19 04:38 04/16/19 06:23 04/16/19 06:23 04/16/19 04:38 04/16/19 06:23 Oxygen Delivery Method Room Air Weight: 93.6 kg Body Mass Index (BMI) 41.6 Intake and Output for Last 24 Hours 04/14/19 04/15/19 04/16/19 23:59 23:59 23:59 Intake Total 2100 / 2100 410 / 410 Output Total 800 / 800 800 / 800 Balance 1300 / 1300 -390 / -390 Laboratory Tests Past 24 Hrs 04/15/19 04/15/19 04/15/19 10:15 10:15 10:15 WBC 8.9 RBC 4.25 Hgb 11.8 L Hct 34.9 L MCV 82.1 MCH 27.8 MCHC 33.8 RDW 14.4 RDW Differential 42.9 Plt Count 225 MPV 10.5 Immature Gran % (Auto) 0.400 Neut % (Auto) 60.0 Lymph % (Auto) 28.8 [place] % (Auto) 9.9 Eos % (Auto) 0.7 Baso % (Auto) 0.2 Absolute Neuts (auto) 5.4 Absolute Lymphs (auto) 2.57 Total Counted Not Reportable PT 13.4 INR 1.0 APTT 25.2 Blood Type B POSITIVE Antibody Screen NEGATIVE 04/16/19 04:47 WBC 10.9 RBC 3.76 L Hgb 10.7 L Hct 31.1 L MCV 82.7 MCH 28.5 MCHC 34.4 RDW 14.6 RDW Differential 42.3 Plt Count 207 MPV 10.5 Immature Gran % (Auto) Neut % (Auto) Lymph % (Auto) [place] % (Auto) Eos % (Auto) Baso % (Auto) Absolute Neuts (auto) Absolute Lymphs (auto) Total Counted PT INR APTT Blood Type Antibody Screen Medical Necessity - Tobacco Use Smoking Status: Never smoker Assessment/Plan POD#1 Repeat C/S Stable postop. Inc diet and activity as tolerated. Begin po meds. D/C Hansen for voiding trial later today. May shower. S/L IV for continued Toradol dosing x 48 hr postop . Continue routine postop care.
[2019-04-16] MEDS: Senna/Docusate Sodium 1 Tablet PO (08:15)
[2019-04-16] MEDS: Acetaminophen 500 MG Tablet 1000 MG PO ×2 (08:15→17:42)
[2019-04-16] MEDS: 0.9% Saline Lock 10 ML Syringe IV (08:56)
[2019-04-16] MEDS: Prenatal Vits Tablet 1 TABLET PO (12:05)
[2019-04-16] MEDS: oxyCODONE 5 MG Tablet PO ×3 (12:08→20:11)
[2019-04-16] MEDS: Ketorolac 10 MG Tablet PO ×2 (15:24→22:18)
[2019-04-16] MEDS: Enoxaparin 60 MG/0.6 ML Syringe SC (18:03)
--- NOTE | 2019-04-16 19:46 | NURSING ---
small reddened [place]well above dressing on outer edge. not warm to touch or itchy to pt
--- NOTE | 2019-04-16 20:50 | NURSING ---
Taking over pt care at this time.
--- NOTE | 2019-04-16 23:05 | NURSING ---
Report given to Rhonda BARTHOLOMEW.
--- NOTE | 2019-04-16 23:23 | NURSING ---
Assuming patient care at this time
[2019-04-17] MEDS: oxyCODONE 5 MG Tablet PO ×3 (00:26→12:07)
[2019-04-17 04:20] VITALS: BP 135/64; PULSE 90; RESP 16; TEMP 36.7
[2019-04-17] MEDS: Acetaminophen 500 MG Tablet 1000 MG PO (06:29)
--- NOTE | 2019-04-17 07:57 | PCM.PN.OB ---
Subjective: POD#2 repeat C/S Doing well. would like to go home today. nursing and states milk is in. sore but pain control ok. - Physical Exam General: Alert, Oriented x3, Cooperative, No apparent distress HEENT: Atraumatic Neck: Supple Abdomen: Soft - Fundus firm minimally tender c/w postop status and at 1-2 cm inferior to umbilicus Skin: Incision - Mepilex dressing CDI. minimal ecchymosis noted superior to R side of incision. Neurological: Cranial nerves II-XII grossly intact Psych/Mental Status: Normal Affect Vital Signs Temp Pulse Resp BP Pulse Ox 98.1 F 90 16 135/64 H 97 /06/28 04:20 04/17/19 04:20 04/17/19 04:20 04/17/19 04:20 04/16/19 12:00 Oxygen Delivery Method Room Air Weight: 93.6 kg Body Mass Index (BMI) 41.6 Intake and Output for Last 24 Hours //28 04//04/17/19 23:59 23:59 23:59 Intake Total 2100 / 2100 626 / 626 Output Total 800 / 800 2400 / 2400 Balance 1300 / 1300 -1774 / -1774 Medical Necessity - Tobacco Use Smoking Status: Never smoker Assessment/Plan POD#2 Repeat C/S Stable postop Dischg home today per pt request. RTO for postop check up in 1-2 wk
--- NOTE | 2019-04-17 08:01 | PCM.DC.SUM ---
Discharge Date and Diagnosis Date of Admission: 04/15/19 - 39 wk prior C/S for repeat C/S Date of Discharge: 04/17/19 - S/P repeat C/S - Secondary Discharge Diagnosis Chronic Problems Pelvic pain (Chronic) Previous delivery affecting (Chronic) History of pulmonary embolism (Chronic) Hospital Course and Treatment Operations: - - Repeat C/S Summary of Care Provided: The patient is a 24 year old female presents at 39 1/7 wk EGA for repeat C/S. H/O DVT/PE in second and has been on Lovenox then to heparin this for prophylaxis. Admitted on 04/15/19 for repeat C/S Delivered ybarra viable female 7# 11 oz Ap 07/19 Procedure uncomplicated. Preoperative Hgb 11.8 g/dl Postoperative Hgb 10.7 g/dl Postoperative course uneventful. Lovenox 60 mg SC daily resumed after surgery and to continue up to 6 wk for DVT/PE Pain control adequate Benign exam. Incision CDI. breast feeding and milk in. Discharged home POD#2 per pt request. - Physical Exam Vital Signs Temp Pulse Resp BP Pulse Ox 98.1 F 90 16 135/64 H 97 04/17/19 04:20 04/17/19 04:20 04/17/19 04:20 04/17/19 04:20 04/16/19 12:00 Oxygen Delivery Method Room Air Weight: 93.6 kg Body Mass Index (BMI) 41.6 Intake and Output for Last 24 Hours 04/15/19 04/16/19 04/17/19 23:59 23:59 23:59 Intake Total 2100 / 2100 626 / 626 Output Total 800 / 800 2400 / 2400 Balance 1300 / 1300 -1774 / -1774 Discharge Diet: No Restrictions Discharge Activity: Return to Normal Activity, May Not Drive, May not drive while taking narcotic pain medications., May Shower Return to work on:: 06/15/19 May shower in (days): 0 May resume sexual activity in: 4 weeks Call your doctor if your incision/area has: Sudden Increased Bleeding, Increased Pain/ Swelling, Increased Redness, Foul Smelling Discharge, Swelling at the incision site Call your doctor if you observe: Fever of 101 or Higher, Inability to urinate, Inability to have a bowel movement, Using more than one pad per hour, Shortness of breath, Chest pain, Calf discomfort, Uncontrolled pain Remove Dressing in (days):: 5 Cleanse incision/area with: Soap & Water Home Medications: Medications to take at Discharge Enoxaparin Sodium [Lovenox] 60 mg SQ DAILY 02/21/19 [id number]/Iron/Folic/Dha [ Formula-Dha Softgel] 1 each PO DAILY 02/21/19 Cephalexin [Keflex] 500 mg PO Q12 #14 cap 02/23/19 Heparin Sodium,Porcine/Pf [Heparin Sod 5,000 Unit/0.5 ml] 5,000 unit SQ BID 04/15/19 Ibuprofen [Motrin] 600 mg PO Q6H PRN PRN #30 tab 04/15/19 Oxycodone [Oxyir] 5 - 10 mg PO Q4H PRN PRN 7 Days #30 tab 04/15/19 Following Prescrptions Were Given to Patient: Oxycodone [Oxyir] 5 - 10 mg PO Q4H PRN PRN 7 Days #30 tab PRN Reason: Mod-Severe Pain (4-10/10) Ibuprofen [Motrin] 600 mg PO Q6H PRN PRN #30 tab PRN Reason: Mild Pain (1-3/10) Primary Care Physician: Care Physician,No Primary [Primary Care Provider] - Please Follow Up With: Parish Desai MD When: one week Medical Necessity - Tobacco Use Smoking Status: Never smoker Meaningful Use Info Meaningful Use Diagnoses (Choose all that apply): None applicable
[2019-04-17 10:00] VITALS: BP 127/84; PULSE 77; RESP 18; TEMP 36.4
[2019-04-17] MEDS: Ketorolac 10 MG Tablet PO (10:24)
[2019-04-17] MEDS: Senna/Docusate Sodium 1 Tablet PO (11:04)
[2019-04-17] MEDS: Prenatal Vits Tablet 1 TABLET PO (12:08)
--- NOTE | 2019-04-17 12:58 | NURSING ---
1230 Discharged to home with baby via wheelchair to car. States she wants to go home and feels able to care for herself and her baby.
== END 2019-04-17 12:30 | disposition home or self-care (01) | DRG 788 ==
PROVIDERS: Admitting Provider Obstetrics & Gynecology; Referring Provider Obstetrics & Gynecology; Visit Provider Obstetrics & Gynecology
PROC: 10D00Z1 Extraction of Products of Conception, Low, Open Approach (ICD-10-PCS; CPT 59514; principal; 2019-04-15 11:45)
DX: O65.5 Obstructed labor due to abnormality of maternal pelvic organs (principal); O34.211 Maternal care for low transverse scar from previous cesarean delivery; G89.29 Other chronic pain; R10.2 Pelvic and perineal pain; J45.909 Unspecified asthma, uncomplicated; Z3A.39 39 weeks gestation of pregnancy; Z37.0 Single live birth; Z86.711 Personal history of pulmonary embolism; Z86.718 Personal history of other venous thrombosis and embolism
CPT/HCPCS: 85025; 85027; 85610; 85730; 86850; 86900; 99218; J7120; A4216; G0378; J2405

== ENCOUNTER 2019-12-13 16:59 | Emergency (ER) | payer BC, SELFPAY ==
[2019-04-15 10:02] VITALS: BMI 41.6
[2019-12-13 16:59] VITALS: BP 145/71; PULSE 87; RESP 16; TEMP 36.8; O2SAT 95; BMI 42.5
[2019-12-13 18:04] VITALS: BP 114/69; PULSE 67; RESP 16; TEMP 36.7; O2SAT 98
[2019-12-13] MEDS: Fluorescein 1 MG STRIP 1 STRIP OPHTHALMIC (18:25)
[2019-12-13] MEDS: Tetracaine 0.5% Ophthalmic Bottle OPHTHALMIC (18:25)
[2019-12-13 19:05] VITALS: BP 132/73; PULSE 72; RESP 17; TEMP 36.8; O2SAT 98
--- NOTE | 2019-12-13 19:13 | ED.VISSUMM ---
- ER Visit Summary Date of Service: 12/13/19 Chief Complaint: Left upper eyelid swelling History of Present Illness: The patient is a [address] Cole. She reports she has swelling of her left upper eyelid that began 2 days ago. She denies any pain. She reports her eye has been tearing. She denies any foreign body sensation or itching. No trauma to her eye. She does not wear glasses or contacts. She reports he does have slightly blurred vision. Patient denies any change in soap, shampoo, laundry detergent, or fabric softener. No new clothing, bedding, carpeting, or pets. No new medications in the past month. Physical Examination: Vitals: Stable. Afebrile. General: Well-nourished and well-developed. Head: Normocephalic atraumatic. Left eye: Mild swelling of the upper eyelid. With slight erythema to the upper eyelid as well. She has no pain with movement of her eye. The upper eyelid was everted. There is no foreign material under this. There is no conjunctival injection. There is no foreign body in her eye. There is no corneal abrasion. No forcing dye uptake. Neck: Supple, no lymphadenopathy. No JVD. Nontender. Cardiovascular: Regular rate and rhythm. No murmurs. Respiratory: No respiratory distress. Clear to auscultation bilaterally. Abdominal: Soft, nontender, nondistended, normal bowel sounds. No guarding, rebound, or peritoneal signs. Back: Nontender. Extremities: Nontender, no edema. Skin: Normal color, no rash. Neurologic: Alert and oriented ?3. Cranial nerves II through XII are intact. Normal strength and sensation. Psych: Normal affect. Emergency Department Course and Treatment: This may represent an early preseptal cellulitis. She has no signs or symptom of an orbital cellulitis. She was given a dose of Augmentin here. Treatment Plan: Patient has an appointment see an eye doctor tomorrow. She will be discharged on Augmentin and instructed keep this appointment. Return to the emergency department for any worsening symptoms. Disposition: To home in improved and stable condition. Impression: 1. Preseptal cellulitis on the left. This note was generated with [employer] dictation software. It may contain incorrect words, spelling, and punctuation that were not noted in review of the chart prior to signing ED Disposition - Plan for ED Patient: Disposition: Home or Assisted Living Instructions: Kerry-Orbital Cellulitis Prescriptions: Amox/Clavulanate Tablet [Augmentin Tablet] 875 mg PO Q12H #20 tab Prescription Printed Additional Instructions: Follow up with your Eye tomorrow for another exam.
[2019-12-13] MEDS: Amox/Clavulanate 875 MG Tablet PO (19:19)
== END 2019-12-13 19:20 | disposition home or self-care (01) ==
PROVIDERS: Emergency Provider Emergency Medicine; PCP Family Medicine; Referring Provider Family Medicine
DX: L03.213 Periorbital cellulitis (principal); R51 Headache; J45.909 Unspecified asthma, uncomplicated
CPT/HCPCS: 99284

== ENCOUNTER 2021-01-29 18:19 | Emergency (ER) | payer BC, SELFPAY ==
[2021-01-29 18:20] VITALS: BP 155/109; PULSE 82; RESP 19; TEMP 36.4; O2SAT 97; BMI 45.1
[2021-01-29 18:21] VITALS: BP 155/109; PULSE 82; RESP 19; TEMP 36.4; O2SAT 97
--- NOTE | 2021-01-29 18:29 | CT_ITS ---
INDICATION: dyspnea Prior PE EXAMINATION: CTA Chest WO/W Contrast Injection TECHNIQUE: Helically acquired images were obtained of the chest following IV contrast. A radiation dose optimization technique was used for this scan. IV Contrast dosage and agent: 100 cc [id number] COMPARISON: 05/03/2015. FINDINGS: Lungs: Unremarkable Mediastinum: The cardiomediastinal silhouette is not enlarged. No mediastinal, hilar or axillary adenopathy. The thoracic aorta is unremarkable. No obvious filling defect seen within the visualized pulmonary arteries. Pleura: Unremarkable Bones/Soft tissues: No suspicious osseous or soft tissue lesions Upper abdomen: No visualized abnormalities in the upper abdomen. CT/CTA Chest W/WO Contrast IMPRESSION: No acute abnormalities in the chest. Specifically, no evidence of acute pulmonary emboli to the segmental level. Electronically Signed: Yoan Moyer MD at 19:38 EDT Tel , Service support ,
--- NOTE | 2021-01-29 18:29 | EKG12_ITS ---
Test Reason : SOB Blood Pressure : / mmHG Vent. Rate : 064 BPM Atrial Rate : 064 BPM P-R Int : 142 ms QRS Dur : 080 ms QT Int : 382 ms P-R-T Axes : 024 000 009 degrees QTc Int : 394 ms Normal sinus rhythm Normal ECG Confirmed by IVAN TIJERINA, TANIYA ([id number]), visual effects editor NNEKA LEDEZMA ([id number]) on 02/01/2021 12:33:22 PM Referred By: Confirmed By:PALLAVI LOVE MD
--- NOTE | 2021-01-29 18:30 | ED.DCSUM_ITS ---
History of Present Illness Chief Complaint: Shortness of Breath Informant: Patient Narrative: 26-year-old female states that about 8 years ago she had a pulmonary embolism while . She is no longer on any blood thinners and has been doing well. She recently traveled to [place] and returned home this afternoon. Since being home she states that she has felt short of breath. She states is hard for her to take a deep breath. She reports some slight nasal congestion but no feve rs or cough. No palpitations. She was 97% in triage with a heart rate of 82 and respirations of 19. She denies any leg swelling. She denies any risk of stating that she has an IUD. - Past Medical History (1) History of pulmonary embolism Status: Chronic Past Medical History - Allergies and Home Meds Allergies/Adverse Reactions: Allergies No Known Allergies Allergy (Verified 12/13/19 17:05) Primary Care Physician: Dhruv Walls MD [Primary Care Provider] - 3-5 Days if not improving Surgical History: noncontributory Lives: With Family Smoking Status: Never smoker Drugs: None Review of Systems General: Denies: Chills, Fever, Sweats Eyes: Denies: Visual changes - bilaterally, Diplopia ENT: Denies: Rhinorrhea, Sore throat Cardiovascular: Denies: Chest pain, Palpitations Respiratory: Reports: Dyspnea. Denies: Cough, Dyspnea on exertion Gastrointestinal: Denies: Abdominal pain, Nausea, Vomiting, Diarrhea, Melena, Hematochezia Genitourinary: Denies: Dysuria, Hematuria, Frequency Musculoskeletal: Denies: Back pain, Extremity Pain Skin: Denies: Rash, Wounds Neurological: Denies: Headache, Weakness, Numbness Physical Exam Vital Signs/Narrative: Vital Signs Temp Pulse Resp BP Pulse Ox 01/29/21 18:20 97.6 F L 82 19 H 155/109 H 97 Inital Vital Signs reviewed: Yes General: Well nourished, Well developed, No Acute Distress Head: Normocephalic, Atraumatic Eyes: Perrl, EOMI ENT: Moist mucous membranes Neck: Supple, Nontender Cardiovascular: Regular rate, Regular rhythm, No murmurs Respiratory: No distress, CTA bilaterally, Chest nontender Abdomen: Soft, Nontender, Nondistended, Normal bowel sounds Back: Nontender, Normal Inspection Extremities: Nontender, No edema Skin: Normal color, No rash Neurological: Alert, Oriented x3, Cranial nerves II-XII grossly intact, Normal Strength, Normal Sensation Psychological: Normal affect, Normal Mood Diagnostic/Tx/Re-eval Clinical Impression(s) from Imaging Studies Chest CTA 01/29/21 18:29 IMPRESSION: No acute abnormalities in the chest. Specifically, no evidence of acute pulmonary emboli to the segmental level. Electronically Signed: Yoan Moyer MD at 19:38 EDT Tel , Service support , Laboratory Last Values WBC 13.1 K/mm3 (4.4-11.0) H 01/29/21 18:42 RBC 5.23 M/mm3 (4.2-5.4) 01/29/21 18:42 Hgb 14.3 g/dL (12.0-15.0) 01/29/21 18:42 Hct 42.9 % (37-47) 01/29/21 18:42 MCV 82.0 fL (81-99) 01/29/21 18:42 MCH 27.3 pg (27.0-32.0) 01/29/21 18:42 MCHC 33.3 g/dL (32-36) 01/29/21 18:42 RDW Std Deviation 37.2 fl (35.1-43.9) 01/29/21 18:42 RDW Coeff of [place] 12.4 % (11.6-14.6) 01/29/21 18:42 Plt Count 418 K/mm3 (150-450) 01/29/21 18:42 MPV 10.3 fl (6.2-12.0) 01/29/21 18:42 Immature Gran % (Auto) 0.400 % (0.0-0.9) 01/29/21 18:42 Neut % (Auto) 53.3 % (47-70) 01/29/21 18:42 Lymph % (Auto) 37.3 % (19-41) 01/29/21 18:42 [place] % (Auto) 7.2 % (0-10) 01/29/21 18:42 Eos % (Auto) 1.4 % (0-5) 01/29/21 18:42 Baso % (Auto) 0.4 % (0-1) 01/29/21 18:42 Absolute Neuts (auto) 7.0 X10^3/uL (2.0-7.7) 01/29/21 18:42 Absolute Lymphs (auto) 4.90 X10^3/uL (0.83-4.51) H 01/29/21 18:42 Nucleated RBC % 0 % (0-5) 01/29/21 18:42 Sodium 138 mmol/L (136-145) 01/29/21 18:42 Potassium 3.9 mmol/L (3.5-5.1) 01/29/21 18:42 Chloride 108 mmol/L (98-107) H 01/29/21 18:42 Carbon Dioxide 25.0 mmol/L (21.0-32.0) 01/29/21 18:42 Anion Gap 5 (5-15) 01/29/21 18:42 BUN 11 mg/dL (7-18) 01/29/21 18:42 Creatinine 0.75 mg/dL (0.55-1.02) 01/29/21 18:42 Estim Creat Clear Calc 178.76 ml/min 01/29/21 18:42 Est GFR (MDRD) Af Amer 118 mL/min (>60) 01/29/21 18:42 Est GFR (MDRD) Non-Af 97 mL/min (>60) 01/29/21 18:42 BUN/Creatinine Ratio 14.6 RATIO (10-20) 01/29/21 18:42 Glucose 99 mg/dL (74-106) 01/29/21 18:42 Calcium 9.3 mg/dL (8.5-10.1) 01/29/21 18:42 Troponin I < 0.015 ng/mL (<0.045) 01/29/21 18:42 Serum , Qual NEGATIVE Negative 01/29/21 18:42 - EKG Initial EKG Interpretation: Sinus Rhythm - EKG is a normal sinus rhythm at a rate of 64 beats per minutes with no concerning features of ACS or ectopy - Medical Decision Making Nonspecific elevation of her white count at 13. Patient is Covid negative. There is no evidence of pulmonary embolism or dissection. Troponin negative. EKG is a normal sinus rhythm at a rate of 64. Patient will be discharged home. She needs to follow-up with her primary care doctor. ED Disposition - Plan for ED Patient: Disposition: Home or Assisted Living Diagnosis: Dyspnea Instructions: ED Dyspnea Referrals: Dhruv Walls MD [Primary Care Provider] - 3-5 Days if not improving
[2021-01-29 18:49] VITALS: O2SAT 98
[2021-01-29 18:51] LABS: Basophil# 0.05 X10^3/uL; Basophil% 0.4 % (0-1); Eosinophil# 0.18 X10^3/uL; Eosinophils% 1.4 % (0-5); Hematocrit 42.9 % (37-47); Hemoglobin 14.3 g/dL (12.0-15.0); Lymphocyte % 37.3 % (19-41); Mean Corp Hgb Conc 33.3 g/dL (32-36); Mean Corpuscular Hgb 27.3 pg (27.0-32.0); Mean Platelet Vol. 10.3 fl (6.2-12.0); Monocyte# 0.94 X10^3/uL; Monocyte% 7.2 % (0-10); NRBC Flagged by Analyzer 0 % (0-5); Neutrophil % 53.3 % (47-70); Platelet Count 418 K/mm3 (150-450); RBC Distribution Width CV 12.4 % (11.6-14.6); RBC Distribution Width SD 37.2 fl (35.1-43.9); Red Blood Count 5.23 M/mm3 (4.2-5.4); White Blood Count 13.1 K/mm3 (4.4-11.0)
[2021-01-29 19:07] LABS: Internal QC Validated? YES +Cl - CLEAR BKGD; Pregnancy, Serum, hCG Quali. NEGATIVE Negative
[2021-01-29 19:08] LABS: Anion Gap 5 (5-15); BUN 11 mg/dL (7-18); BUN/Creat Ratio 14.6 RATIO (10-20); Calcium,Total 9.3 mg/dL (8.5-10.1); Chloride 108 mmol/L (98-107); Creatinine, Serum 0.75 mg/dL (0.55-1.02); EST Glomerular Filtration Rate 97 mL/min (>60); Est Glom Filt Rate - Afr Amer 118 mL/min (>60); Estimated Creatinine Clearance 178.76 ml/min; Glucose 99 mg/dL (74-106); Potassium 3.9 mmol/L (3.5-5.1); Sodium Level 138 mmol/L (136-145)
[2021-01-29 19:21] VITALS: BP 125/78; PULSE 71; RESP 12; TEMP 36.9; O2SAT 98
[2021-01-29 19:51] VITALS: BP 125/78; PULSE 74; RESP 20; O2SAT 98
== END 2021-01-29 19:52 | disposition home or self-care (01) ==
PROVIDERS: Emergency Provider Emergency Medicine; PCP Family Medicine
DX: R06.00 Dyspnea, unspecified (principal); Z86.711 Personal history of pulmonary embolism; R09.81 Nasal congestion; R06.02 Shortness of breath
CPT/HCPCS: 71275; 80048; 84484; 84703; 85025; 87426; 93005; 99283; Q9967; A4216

== ENCOUNTER → 2021-08-28 | Outpatient (CLI) | payer BC, SELFPAY ==
[2021-08-31 08:09] LABS: Chlamydia By Nucleic Acid AMP Negative (Negative)
[2021-08-31 08:21] LABS: Gonococcus By Nucleic Acid AMP Negative (Negative)
[2021-08-31 13:59] LABS: HPV Reflexed? NOT INDICATED
== END | disposition home or self-care (01) ==
LOC: LABSPEC 16:09
PROVIDERS: PCP Family Medicine; Visit Provider Obstetrics & Gynecology
DX: Z12.4 Encounter for screening for malignant neoplasm of cervix (principal); Z11.3 Encounter for screening for infections with a predominantly sexual mode of transmission
CPT/HCPCS: 87491; 87591; 88175; G0145

== ENCOUNTER 2021-11-08 10:05 | Outpatient (RCR) | payer BC, SELFPAY | END 2021-11-09 23:59 | LOC: EMPH 10:05 | PROVIDERS: PCP Family Medicine; Visit Provider Family Medicine Geriatric Medicine | DX: Z03.818 Encounter for observation for suspected exposure to other biological agents ruled out (principal) | CPT/HCPCS: 87426; 87635; U0003; U0005 ==

== ENCOUNTER 2022-06-29 21:46 | Emergency (ER) | payer OTHER, SELFPAY ==
[2022-06-29 21:47] VITALS: BP 162/89; PULSE 79; RESP 16; TEMP 36.6; O2SAT 98; BMI 44.4
--- NOTE | 2022-06-29 22:02 | EKG12_ITS ---
Test Reason : Blood Pressure : / mmHG Vent. Rate : 073 BPM Atrial Rate : 073 BPM P-R Int : 140 ms QRS Dur : 092 ms QT Int : 386 ms P-R-T Axes : 030 002 017 degrees QTc Int : 425 ms Sinus rhythm with marked sinus arrhythmia Minimal voltage criteria for LVH, may be normal variant ( R in aVL ) Borderline ECG Confirmed by ZULEYKA TIJERINA, LUZ ([id number]), clinical editor CHARLEEN KIM ([id number]) on 07/02/2022 12:47:39 PM Referred By: Confirmed By:LUZ GARDINER MD
--- NOTE | 2022-06-29 22:03 | ED.VIS.CHEST ---
HPI History of Present Illness Chief Complaint: Chest Pain Informant: patient Onset/Context/Timing Onset: Yesterday Activity at onset: gradual and onset Timing: Waxes and wanes Quality: Positive for Pressure and - (Cramping) Location: Substernal (Radiating straight through to back) Current Severity: Moderate Maximum Severity: Moderate Worsened By: Breathing (A little worse); Not Worsened By Exertion, Movement of Arm or Movement of Torso Relieved By: Nothing Associated Symptoms: Positive for Dyspnea; Negative for Nausea, Vomiting, Diaphoresis, Cough, Fever, Lightheadedness or Palpitations Narrative Narrative: Patient states she has had chest discomfort for about 24 hours as well as intermittent shortness of breath, seems to be more when she is doing activities, the dyspnea is mild, the discomfort is somewhat pleuritic, nothing else seems to make it worse or better such as position, activity, exertion and. She cannot remember if this feels the same but states she has a history of a PE that was provoked during her , she has been off of anticoagulants, she had a 13-hour drive home from [place] 1 week ago without developing any leg pain or swelling in her calves, but is worried that since this has not gone away that it may be another PE. She denies any palpitations but states that every time she has checked her apple watch her heart rate has been around 110. [facility] Medical History (Updated 06/30/22 @ 00:[address] Dimitry Ambrose MD) History of pulmonary embolism Home Medications enoxaparin 60 mg/0.6 mL subcutaneous syringe (Lovenox) 60 mg SQ DAILY Hx DVT 02/21/19 [History Last Taken 02/21/19 12:30] vit no.116-iron 28 mg-folic acid 800 mcg-dha 200 mg capsule ( Formula-DHA) 1 ea PO DAILY 02/21/19 [History Last Taken 02/21/19 20:00] cephalexin 500 mg capsule 500 mg PO Q12 #14 caps 02/23/19 [Rx Last Taken Unknown] heparin, porcine (PF) 5,000 unit/0.5 mL subcutaneous syringe 5,000 unit SQ BID Check with primary doctor 04/15/19 [History Last Taken 04/14/19 17:00] ibuprofen 600 mg tablet 600 mg PO Q6H PRN PRN Mild Pain (-01/17) #30 tabs 04/15/19 [Rx Last Taken Unknown] amoxicillin 875 mg-potassium clavulanate 125 mg tablet 875 mg PO Q12H #20 tabs 12/13/19 [Rx Last Taken Unknown] Allergy/AdvReac Type Severity Reaction Status Date / Time No Known Allergies Allergy Verified 06/29/22 21:49 Surgical History (Updated 06/29/22 @ 22:[address] Dimitry Ambrose MD) Previous delivery affecting Social History Smoking Status: Current every day smoker tobacco type: cigarettes ROS ROS ED Constitutional Constitutional ED: Denies chills or fever(s) Eyes Eyes: Denies change in vision or diplopia ENT ENT ED: Denies rhinorrhea or sore throat Cardiovascular Cardiovascular: Reports chest pain; Denies orthopnea or palpitations Respiratory/Chest Respiratory/Chest: Reports dyspnea; Denies cough or orthopnea Gastrointestinal Gastrointestinal: Denies abdominal pain, diarrhea, nausea or vomiting Genitourinary Genitourinary ED: Denies dysuria or hematuria Musculoskeletal Musculoskeletal: Reports back pain; Denies neck pain Integumentary Denies abscess or rash Neurologic Neurologic: Denies headache(s), paresthesias or weakness Psychiatric Psychiatric: Denies anxiety or suicidal thoughts EXAM Physical Exam Const Vital Signs: 06/29/22 21:47 06/29/22 22:16 Temperature 97.8 F Temperature Source Temporal Pulse Rate 79 Respiratory Rate 16 Blood Pressure 162/89 H Blood Pressure Mean 113 Pulse Ox 98 Oxygen Delivery Method Room Air Room Air Positive well nourished, well developed and obese General Appearance ED: well developed and NAD Nutritional Appearance: obese HEENT Reports moist mucous membranes normocephalic and atraumatic Eyes PERRL and EOMs intact bilaterally Neck full ROM and supple Resp normal respiratory effort and clear to auscultation bilaterally Effort and Inspection: able to speak in complete sentences Cardio regular rate, regular rhythm and no murmurs Rate: Negative for tachycardic GI non-tender and non-distended Auscultation: normoactive bowel sounds Palpation: soft Back/Spine no CVA tenderness General Back: other FROM Extremity normal to inspection, no calf tenderness and no pedal edema General Extremety ED: Negative for edema, pulses abnormal or tenderness General Extremity: Negative for edema or pulses abnormal Neuro oriented x3, CN's II-XII intact bilaterally and no sensory deficits noted Sensorium / Orientation: awake and alert Motor Exam: strength 5/5 throughout Skin no rashes or lesions noted and no wounds Heart Score History: Slightly/Non-Suspicious ECG: Normal Age: </= 45 years Risk Factors: 1 or 2 Risk Factors Troponin: </= Normal Limit Score: 1 MDM MDM MDM Narrative Medical decision making narrative: Cardiac work-up is normal/unremarkable, I did a D-dimer which was less than the lower limit of normal, in context of normal vital signs, no clinical evidence of a DVT, and symptoms that sound less like a pulmonary embolus including a low risk patient otherwise, this is enough to rule out pulmonary embolus and DVT acutely at this time. She is reassured. She still having discomfort and would like something for it so I would treat esophageal etiologies, she will be giving a GI cocktail and dicyclomine prior to discharge. Lab Data Attestation: I reviewed the patient's lab results. Labs: Laboratory Results - last 24 hr 06/29/22 06/29/22 06/29/22 22:15 22:15 22:15 WBC 13.0 H RBC 5.02 Hgb 13.9 Hct 41.7 MCV 83.1 MCH 27.7 MCHC 33.3 RDW Std Deviation 38.2 RDW Coeff of Abimbola 12.6 Plt Count 395 MPV 10.5 Immature Gran % (Auto) 0.400 Neut % (Auto) 49.1 Lymph % (Auto) 39.5 Jerome % (Auto) 9.1 Eos % (Auto) 1.5 Baso % (Auto) 0.4 Absolute Neuts (auto) 6.4 Absolute Lymphs (auto) 5.12 H Nucleated RBC % 0 Differential Comment SCANNED Platelet Estimate ADEQUATE Plt Morphology Comment LARGE RBC Morphology NORM C+C D-Dimer Quant (PE/DVT) Cancelled Sodium 141 Potassium 3.9 Chloride 109 H Carbon Dioxide 26.0 Anion Gap 6 BUN 13 Creatinine 0.70 Estim Creat Clear Calc 186.81 Est GFR (MDRD) Af Amer 127 Est GFR (MDRD) Non-Af 105 BUN/Creatinine Ratio 18.5 Glucose 111 H Calcium 9.7 Troponin I High Sens < 3 L 06/29/22 06/29/22 22:42 23:05 WBC RBC Hgb Hct MCV MCH MCHC RDW Std Deviation RDW Coeff of Abimbola Plt Count MPV Immature Gran % (Auto) Neut % (Auto) Lymph % (Auto) Jerome % (Auto) Eos % (Auto) Baso % (Auto) Absolute Neuts (auto) Absolute Lymphs (auto) Nucleated RBC % Differential Comment Platelet Estimate Plt Morphology Comment RBC Morphology D-Dimer Quant (PE/DVT) Cancelled < 0.27 L Sodium Potassium Chloride Carbon Dioxide Anion Gap BUN Creatinine Estim Creat Clear Calc Est GFR (MDRD) Af Amer Est GFR (MDRD) Non-Af BUN/Creatinine Ratio Glucose Calcium Troponin I High Sens Radiography Chest X-Ray - ED: 1 View, Read by ED Physician, Normal, No Acute Disease and No Infiltrates Diagnostic Testing: Clinical Impression(s) from Imaging Studies Chest X-Ray 06/29/22 22:20 IMPRESSION: No radiographic evidence of acute cardiopulmonary disease. Electronically Signed: En Portillo MD at 23:07 EDT Reading Location ID and State: [facility] / [place] Tel , Service support , Rhythm Strip Rhythm Strip: Sinus Rhythm Rate: 85 Ectopy: None EKG Initial EKG: Attestation: I personally reviewed and interpreted this EKG as follows: Interpretation: No Acute Injury Pattern and Sinus Arrythmia Comments: Otherwise normal, no S1 Q3 T3 pattern. Discharge Plan Triage Chief Complaint: Chest Pain ED Provider: Dimitry Ambrose Dx/Rx/DC Orders Clinical Impression: Chest pain, unspecified Instructions: ED Chest Pain, Uncertain Cause Prescriptions: No Action heparin, porcine (PF) 5,000 UNIT/0.5 ML syringe 5,000 unit SQ BID ibuprofen 600 MG tablet 600 mg PO Q6H PRN PRN (Reason: Mild Pain (-01/17)) Qty: 30 1RF enoxaparin [Lovenox] 60 MG/0.6 ML syringe 60 mg SQ DAILY [id number] [ Formula-DHA] 1 EACH capsule 1 ea PO DAILY cephalexin 500 MG capsule 500 mg PO Q12 Qty: 14 0RF amoxicillin-pot clavulanate 875 MG tablet 875 mg PO Q12H Qty: 20 0RF Primary Care Provider: Dhruv Walls Referrals: Dhruv Walls MD [Primary Care Provider] - 1 Week if not improving Activity Restrictions/Additional Instructions: If you continue to have symptoms, consider taking [id number] Prilosec, Nexium, or something similar. Try for 2 weeks to see if there is a difference. Follow-up with your doctor if you are continuing to have issues. Disposition Disposition: Home, Self Care
--- NOTE | 2022-06-29 22:20 | RAD_ITS ---
EXAM: XR CHEST, 1 VIEW CLINICAL INDICATION: chest pain TECHNIQUE: Frontal view of the chest. This report was created using [employer] report generation technology. COMPARISON: 03/30/2017 FINDINGS: LUNGS AND PLEURAL SPACES: Unremarkable. No consolidation or edema. No pneumothorax. No effusion. HEART: Unremarkable. Cardiac silhouette not enlarged. MEDIASTINUM: Central airways and mediastinal contour are unremarkable. BONES/JOINTS: Unremarkable. SOFT TISSUES: Unremarkable. RAD/Chest 1 View (Portable) IMPRESSION: No radiographic evidence of acute cardiopulmonary disease. Electronically Signed: En Portillo MD at 23:07 EDT ,
[2022-06-29 22:26] LABS: Absolute Lymphocyte Count 5.12 X10^3/uL (0.83-4.51); Absolute Neutrophil Count 6.4 X10^3/uL (2.0-7.7); Basophil# 0.05 X10^3/uL; Basophil% 0.4 % (0-1); Eosinophil# 0.19 X10^3/uL; Eosinophils% 1.5 % (0-5); Hematocrit 41.7 % (37-47); Hemoglobin 13.9 g/dL (12.0-15.0); Lymphocyte # 5.12 X10^3/ul (0.83-4.51); Lymphocyte % 39.5 % (19-41); Mean Corp Hgb Conc 33.3 g/dL (32-36); Mean Corpuscular Hgb 27.7 pg (27.0-32.0); Mean Corpuscular Volume 83.1 fL (81-99); Mean Platelet Vol. 10.5 fl (6.2-12.0); Monocyte# 1.18 X10^3/uL; Monocyte% 9.1 % (0-10); NRBC Flagged by Analyzer 0 % (0-5); Neutrophil # 6.36 X10^3/uL (2.7-7.7); Neutrophil % 49.1 % (47-70); POSITIVE DIFFERENTIAL YES; Platelet Count 395 K/mm3 (150-450); RBC Distribution Width CV 12.6 % (11.6-14.6); RBC Distribution Width SD 38.2 fl (35.1-43.9); Red Blood Count 5.02 M/mm3 (4.2-5.4)
[2022-06-29 22:27] LABS: Differential Indicated SCAN CRITERIA MET
[2022-06-29 22:42] LABS: Anion Gap 6 (5-15); BUN 13 mg/dL (7-18); BUN/Creat Ratio 18.5 RATIO (10-20); Calcium,Total 9.7 mg/dL (8.5-10.1); Chloride 109 mmol/L (98-107); EST Glomerular Filtration Rate 105 mL/min (>60); Est Glom Filt Rate - Afr Amer 127 mL/min (>60); Estimated Creatinine Clearance 186.81 ml/min; Glucose 111 mg/dL (74-106); Potassium 3.9 mmol/L (3.5-5.1); Sodium Level 141 mmol/L (136-145); Troponin-I HS (w/2H Reflex) < 3 pg/mL (3.0-54.0)
[2022-06-29 23:08] LABS: Differential Comment SCANNED
[2022-06-29 23:09] LABS: Platelet Estimate ADEQUATE (ADEQ); Red Cell Morphology NORM C+C NORMAL (NORM C&C)
[2022-06-29 23:20] LABS: Platelet Morphology LARGE
[2022-06-29 23:45] LABS: D-Dimer Quantitative (DVT/PE) < 0.27 FEU/ug/m (0.27-0.49)
[2022-06-30 00:20] LABS: Reflex Troponin-HS? (from REC) Y
[2022-06-30] MEDS: Mag Hydrox/Al Hydrox/Simeth 30 ML UDC PO (00:26)
[2022-06-30] MEDS: Dicyclomine 10 MG Capsule 20 MG PO (00:27)
[2022-06-30 00:29] VITALS: BP 130/78; PULSE 88; RESP 18; O2SAT 99
== END 2022-06-30 00:30 | disposition home or self-care (01) ==
PROVIDERS: Emergency Provider Emergency Medicine; PCP Family Medicine; Visit Provider Emergency Medicine
DX: R07.9 Chest pain, unspecified (principal); F17.210 Nicotine dependence, cigarettes, uncomplicated; R06.00 Dyspnea, unspecified; Z86.711 Personal history of pulmonary embolism
CPT/HCPCS: 71045; 80048; 84484; 85025; 85379; 93005; 99285; A4216

== ENCOUNTER → 2022-09-03 | Outpatient (CLI) | payer OTHER, SELFPAY ==
[2022-09-03 19:46] LABS: Bilirubin, Direct 0.13 mg/dL (0.00-0.30); Thyroid Stim Hormone (TSH) 3.36 uIU/mL (0.358-3.74)
== END | disposition home or self-care (01) ==
PROVIDERS: PCP Registered Nurse; Referring Provider Registered Nurse; Visit Provider Registered Nurse
DX: Z00.00 Encounter for general adult medical examination without abnormal findings (principal)
CPT/HCPCS: 36415; 82248; 84443

== ENCOUNTER 2023-01-27 20:22 | Emergency (ER) | payer OTHER, SELFPAY ==
[2023-01-27 20:24] VITALS: BP 161/102; PULSE 104; RESP 18; TEMP 36.1; O2SAT 99; BMI 42.5
--- NOTE | 2023-01-27 20:37 | EDS_ITS ---
HPI History of Present Illness Chief Complaint: Headache Detail of Chief Complaint: Headache x1 month Informant: patient Narrative Narrative: Patient presents to the emergency department complaint of headache for 1 month. Patient has history of pseudotumor cerebri diagnosed about 15 years ago. Patient saw a nurse practitioner for neurology this week and was thought that she had some papilledema and was told that if her headache worsened she needed to come to the emergency department. Patient complains of increased symptoms in the last 2 days where she is very lightheaded and dizzy with standing and severe headache with standing that gets better with laying flat. Patient denies any visual changes. She complains of some mild nausea. She does have history of migraines. She denies any falls or head injuries. Currently rates her headache as a 7 out of 10. [facility] Medical History (Updated 01/27/23 @ 23:[address] Carolyn Campa DO) History of pulmonary embolism Home Medications enoxaparin 60 mg/0.6 mL subcutaneous syringe (Lovenox) 60 mg SQ DAILY Hx DVT 02/21/19 [History Last Taken 02/21/19 12:30] vit no.116-iron 28 mg-folic acid 800 mcg-dha 200 mg capsule ( Formula-DHA) 1 ea PO DAILY 02/21/19 [History Last Taken 02/21/19 20:00] cephalexin 500 mg capsule 500 mg PO Q12 #14 caps 02/23/19 [Rx Last Taken Unknown] heparin, porcine (PF) 5,000 unit/0.5 mL subcutaneous syringe 5,000 unit SQ BID Check with primary doctor 04/15/19 [History Last Taken 04/14/19 17:00] ibuprofen 600 mg tablet 600 mg PO Q6H PRN PRN Mild Pain (1-3/10) #30 tabs 04/15/19 [Rx Last Taken Unknown] amoxicillin 875 mg-potassium clavulanate 125 mg tablet 875 mg PO Q12H #20 tabs 12/13/19 [Rx Last Taken Unknown] Allergy/AdvReac Type Severity Reaction Status Date / Time No Known Allergies Allergy Verified 01/27/23 20:24 Surgical History Previous delivery affecting Social History Smoking Status: Current every day smoker tobacco type: cigarettes ROS ROS ED Review of Systems ROS Unobtainable: other Constitutional Constitutional ED: Reports lethargy; Denies chills, fever(s), sweats or weight loss Eyes Eyes: Denies blurry vision, change in vision or diplopia ENT ENT ED: Denies rhinorrhea or sore throat Cardiovascular Cardiovascular: Reports chest pain and racing heartbeat; Denies orthopnea Respiratory/Chest Respiratory/Chest: Reports dyspnea and dyspnea on exertion; Denies cough, orthopnea or sputum Gastrointestinal Gastrointestinal: Denies abdominal pain, diarrhea, nausea or vomiting Genitourinary Genitourinary ED: Denies dysuria, hematuria or urinary frequency Musculoskeletal Musculoskeletal: Denies arthralgias, back pain, myalgias or neck pain Integumentary Denies abscess, Abrasions or rash Neurologic Neurologic: Reports headache(s) and other Details: Dizziness ; Denies weakness Psychiatric Psychiatric: Denies anxiety, depression or suicidal thoughts Endocrine Endocrinology: Denies polydipsia, polyphagia or polyuria Hematologic/Lymphatic Hematologic/Lymphatic: Denies easy bleeding, easy bruising or lymphadenopathy Allergic/Immunologic Allergic/Immunologic ED: Denies mouth swelling, tongue swelling or urticaria EXAM Physical Exam Const Vital Signs: 01/27/23 20:24 01/27/23 23:00 Temperature 97 F L Temperature Source Temporal Pulse Rate 104 H 68 Respiratory Rate 18 15 Blood Pressure 161/102 H 132/98 H Blood Pressure Mean 121 109 Pulse Ox 99 98 Oxygen Delivery Method Room Air Room Air Positive well nourished and well developed General Appearance ED: well developed and NAD HEENT Reports TM's clear and moist mucous membranes normocephalic and atraumatic; Negative for trauma or tenderness Tympanic Membrane ED: Yes TM's clear Eyes PERRL and EOMs intact bilaterally General Eye ED: Negative for pale conjunctiva or scleral icterus Neck no lymphadenopathy, supple and no JVD General: Negative for tenderness Chest Wall inspection of chest normal and palpation of chest normal Chest: Negative for tenderness Resp normal respiratory effort and clear to auscultation bilaterally Effort and Inspection: Negative for respiratory distress or pain with movement Auscultation: Negative for rhonchi, wheezes or diminished lung sounds Cardio regular rate, regular rhythm, S1 normal heart sound, S2 normal heart sound and no murmurs Peripheral Pulses: pulses 2+ throughout GI normal to inspection, nondistended, normoactive bowel sounds, soft to palpation, non-tender, non-distended and no masses Back/Spine no CVA tenderness and no thoracic nor lumbar tenderness Extremity normal to inspection General Extremety ED: Negative for edema General Extremity: Negative for edema Neuro oriented x3, CN's II-XII intact bilaterally, no sensory deficits noted and gait normal Neuro Narrative: Finger-nose and heel hernandez testing within normal limits, negative Romberg, negative , Fundi benign. Sensorium / Orientation: awake, alert, oriented to person, oriented to place and oriented to time Motor Exam: strength 5/5 throughout and strength abnormal Psych mental status grossly normal Skin no rashes or lesions noted and no wounds MDM MDM MDM Narrative Medical decision making narrative: Presents with headache x1 month off and on. Headache worse over the last 2 days. Headache worse with standing. She does have history of pseudotumor cerebri. She was told by nurse practitioner at her neurologist office that she has papilledema. Patient has ophthalmology appointment in 3 days. Patient also with history of migraines. I did obtain a CT scan of her brain without contrast that showed no evidence of hydrocephalus or hemorrhage or other acute process. She had a empty sella which would be in keeping with pseudotumor cerebri. Patient was given Reglan, Benadryl, and Toradol and had some mild improvement in her symptoms and at rest lying flat she rates her headache as a 5 out of 10. She has CBC with differential that showed a slightly elevated white count of 12.9 and hemoglobin of 15 with platelet count of 517. Chemistries were unremarkable. I did do a funduscopic exam and vessels appeared clear and crisp and I did not appreciate significant evidence for papilledema. The optic disc margins appeared relatively distinct. Patient does not have significant vision change. I did offer to transfer her to [facility] that has inpatient neurology for further evaluation as she continues to complain with s tanding of worsening headache. Patient does not want to be transferred and would like to go home and follow-up with her trap puller in 3 days. I did give her Decadron 10 mg IV and ordered Depakote 1 g IV as well. Patient advised to return if worsening headache or vision change or if condition should worsen anyway. Lab Data Labs: Laboratory Results - last 24 hr 01/27/23 01/27/23 21:00 21:00 WBC 12.9 H RBC 5.50 H Hgb 15.0 Hct 44.7 MCV 81.3 MCH 27.3 MCHC 33.6 RDW Std Deviation 36.6 RDW Coeff of Abimbola 12.4 Plt Count 517 H MPV 10.3 Immature Gran % (Auto) 0.300 Neut % (Auto) 55.1 Lymph % (Auto) 36.2 Desha % (Auto) 6.7 Eos % (Auto) 1.2 Baso % (Auto) 0.5 Absolute Neuts (auto) 7.1 Absolute Lymphs (auto) 4.67 H Nucleated RBC % 0 Sodium 143 Potassium 3.2 L Chloride 115 H Carbon Dioxide 20.0 L Anion Gap 8 BUN 14 Creatinine 0.88 Estim Creat Clear Calc 70.54 Est GFR (MDRD) Af Amer 97 Est GFR (MDRD) Non-Af 81 BUN/Creatinine Ratio 16.0 Glucose 109 H Calcium 9.1 Radiography Diagnostic Testing: Clinical Impression(s) from Imaging Studies Brain CT 01/27/23 20:49 IMPRESSION: Diffuse paranasal disease. . Empty sella deformity of uncertain significance although may be seen with pseudotumor cerebri. No evidence for obstructive hydrocephalus mass or acute bleed Electronically Signed: Alxe Rodriguez MD at 21:04 EDT Reading Location ID and State: [facility] / [place] , Service support , Discharge Plan Triage Chief Complaint: Headache ED Provider: Carolyn Campa Dx/Rx/DC Orders Clinical Impression: Headache, Pseudotumor cerebri Instructions: ED Headache Unspecified Prescriptions: No Action heparin, porcine (PF) 5,000 UNIT/0.5 ML syringe 5,000 unit SQ BID ibuprofen 600 MG tablet 600 mg PO Q6H PRN PRN (Reason: Mild Pain (-01/17)) Qty: 30 1RF enoxaparin [Lovenox] 60 MG/0.6 ML syringe 60 mg SQ DAILY [id number] [ Formula-DHA] 1 EACH capsule 1 ea PO DAILY cephalexin 500 MG capsule 500 mg PO Q12 Qty: 14 0RF amoxicillin-pot clavulanate 875 MG tablet 875 mg PO Q12H Qty: 20 0RF Primary Care Provider: Annmarie Hanna NP Referrals: Annmarie Hanna NP, [facility] [Primary Care Provider] - Activity Restrictions/Additional Instructions: Keep your appointment with ophthalmology and follow-up with neurology at the earliest possible time. Disposition Disposition: Home, Self Care
--- NOTE | 2023-01-27 20:49 | CT_ITS ---
STUDY: CT BRAIN WITHOUT CONTRAST REASON FOR EXAM: Female, 28 years old. headache RADIATION DOSAGE (If Supplied By Facility): CTDIvol = ( 44.99 ) mGy, DLP = ( 812.98 ) mGycm TECHNIQUE: Transaxial CT imaging of the brain was performed without administration of intravenous contrast material. Individualized dose optimization techniques were used for this CT. COMPARISON: No relevant priors. FINDINGS: Normal soft tissue structures. Normal calvarium. Normal size ventricles and extra-axial spaces for the patient''s age. Normal white matter tracts of the cerebral hemispheres. Normal basal ganglia and thalami. Normal brainstem. Normal cerebellum. Empty sella deformity of uncertain significance. There is no intracranial hemorrhage. There are no findings of an acute ischemic infarction. There are polyps or mucous retention cyst in the maxillary sinuses as well as the right frontal sinus. There is also mucosal thickening of the anterior ethmoid sinuses bilaterally and left sphenoid sinus CT/Brain/Head without Contrast IMPRESSION: Diffuse paranasal disease. . Empty sella deformity of uncertain significance although may be seen with pseudotumor cerebri. No evidence for obstructive hydrocephalus mass or acute bleed Electronically Signed: Alex Rodriguez MD at 21:04 EDT ,
[2023-01-27 21:14] LABS: Absolute Lymphocyte Count 4.67 X10^3/uL (0.83-4.51); Absolute Neutrophil Count 7.1 X10^3/uL (2.0-7.7); Basophil# 0.07 X10^3/uL; Basophil% 0.5 % (0-1); Eosinophil# 0.15 X10^3/uL; Eosinophils% 1.2 % (0-5); Hematocrit 44.7 % (37-47); Lymphocyte # 4.67 X10^3/ul (0.83-4.51); Lymphocyte % 36.2 % (19-41); Mean Corp Hgb Conc 33.6 g/dL (32-36); Mean Corpuscular Hgb 27.3 pg (27.0-32.0); Mean Corpuscular Volume 81.3 fL (81-99); Mean Platelet Vol. 10.3 fl (6.2-12.0); Monocyte# 0.86 X10^3/uL; Monocyte% 6.7 % (0-10); NRBC Flagged by Analyzer 0 % (0-5); Neutrophil % 55.1 % (47-70); Platelet Count 517 K/mm3 (150-450); RBC Distribution Width CV 12.4 % (11.6-14.6); RBC Distribution Width SD 36.6 fl (35.1-43.9); White Blood Count 12.9 K/mm3 (4.4-11.0)
[2023-01-27 21:26] LABS: Anion Gap 8 (5-15); BUN 14 mg/dL (7-18); Calcium,Total 9.1 mg/dL (8.5-10.1); Chloride 115 mmol/L (98-107); Creatinine, Serum 0.88 mg/dL (0.55-1.02); EST Glomerular Filtration Rate 81 mL/min (>60); Est Glom Filt Rate - Afr Amer 97 mL/min (>60); Estimated Creatinine Clearance 70.54 ml/min; Glucose 109 mg/dL (74-106); Potassium 3.2 mmol/L (3.5-5.1); Sodium Level 143 mmol/L (136-145)
[2023-01-27] MEDS: Ketorolac 15 MG/ML Vial IV (22:01)
[2023-01-27] MEDS: DiphenhydrAMINE 50 MG/ML Syringe 25 MG IV (22:02)
[2023-01-27] MEDS: Metoclopramide 10 MG/2 ML Vial IV (22:02)
[2023-01-27 23:00] VITALS: BP 132/98; PULSE 68; RESP 15; O2SAT 98
[2023-01-27] MEDS: dexAMETHasone 10 MG/ML Vial IV (23:34)
== END 2023-01-28 00:54 | disposition home or self-care (01) ==
PROVIDERS: Emergency Provider Emergency Medicine; PCP Registered Nurse; Visit Provider Emergency Medicine
DX: G93.2 Benign intracranial hypertension (principal); F17.210 Nicotine dependence, cigarettes, uncomplicated; H47.10 Unspecified papilledema; R51.9 Headache, unspecified; Z86.711 Personal history of pulmonary embolism
CPT/HCPCS: 70450; 80048; 85025; 87426; 99284; A4216

== ENCOUNTER → 2023-02-19 | Outpatient (CLI) | payer OTHER, SELFPAY ==
--- NOTE | 2023-02-19 14:00 | MRI_ITS ---
STUDY: EXAMINATION - MRV BRAIN WITHOUT CONTRAST REASON FOR EXAM: Female, 28 years old. IDIOPATHIC INTRACRANIAL HYPERTENSION;WORSENING HEADACHES -- HEAD TECHNIQUE: 3D [id number] (TOF) imaging was performed in a regina MRI scanner. COMPARISON: None. FINDINGS: Normal flow within the superior sagittal sinus. Normal flow within the superficial cortical veins. Normal flow within the paired internal cerebral veins, vein of Colin and straight sinus. Normal flow within the bilateral transverse and sigmoid sinuses. Normal flow within the bilateral jugular bulbs. MRI/MRV Head Without Contrast IMPRESSION: Normal unenhanced MRV of the brain. Electronically Signed: Alex Rodriguez MD at 17:22 EDT ,
--- NOTE | 2023-02-19 14:22 | MRI_ITS ---
STUDY: MRI BRAIN WITH AND WITHOUT CONTRAST REASON FOR EXAM: Female, 28 years old. IDIOPATHIC INTRACRANIAL HYPERTENSION; WORSENING HEADACHES TECHNIQUE: Standardized multiplanar fat and water weighted pulse sequences were obtained. IV 20CC CLARISCAN was administered for the contrast portion of the examination. COMPARISON: CT of the brain January 27, 2023 FINDINGS: Normal size of the ventricles and extra-axial spaces for the patient''s age. Normal white matter tracts of the supratentorial brain. Normal bilateral basal ganglia. Normal thalami. There is no extra-axial fluid accumulation. Normal flow voids within the major intracranial circulation suggesting patency by spin echo criteria. Normal venous enhancement. There is no enhancing intra-axial or extra-axial abnormality. Empty sella deformity is noted. Normal, infundibular stalk, optic chiasm and hypothalamus. Normal tectal plate and pineal gland. Normal midbrain, sonia and medulla. Normal cerebellum. Normal basal cisterns. Normal bilateral temporal bones. Normal bilateral internal auditory canals. No demonstrated orbital abnormality, within the constraints of a routine brain study. Large mucous retention cyst in left maxillary sinus and minor mucosal thickening of the left ethmoid air cells.. Normal calvarium and skull base. Normal visualized soft tissue structures. Normal visualized upper cervical spine. MRI/Brain W/WO Contrast IMPRESSION: Empty sella deformity which may be seen in association with idiopathic intracranial hypertension. Otherwise normal MRI of the brain with and without contrast. Left maxillary and ethmoid sinus disease likely chronic Electronically Signed: Alex Rodriguez MD at 17:20 EDT ,
== END | disposition home or self-care (01) ==
PROVIDERS: PCP Registered Nurse; Referring Provider Physician Assistant Medical; Visit Provider Physician Assistant Medical
DX: G93.2 Benign intracranial hypertension (principal); R51.9 Headache, unspecified; H93.A2 Pulsatile tinnitus, left ear
CPT/HCPCS: 70544; 70553; A9575

== ENCOUNTER → 2023-07-18 | Outpatient (CLI) | payer OTHER, SELFPAY ==
--- NOTE | 2023-07-18 09:20 | RAD_ITS ---
EXAM: XR RIGHT KNEE COMPLETE, 4 OR MORE VIEWS CLINICAL INDICATION: pain TECHNIQUE: Four or more views of the right knee. COMPARISON: No relevant prior studies available. FINDINGS: BONES/JOINTS: No significant abnormality. No acute fracture. No subluxation. Normal alignment. Preservation of the joint space. No sclerotic or destructive changes observed. SOFT TISSUES: No significant abnormality. No soft tissue swelling or gas. No radiopaque foreign body. RAD/Knee 4 or More Views IMPRESSION: Negative right knee x-rays. Electronically Signed: Syed Ramos DO at 20:14 EDT ,
== END | disposition home or self-care (01) ==
LOC: MTRAD 09:17
PROVIDERS: PCP Registered Nurse; Referring Provider Orthopaedic Surgery; Visit Provider Orthopaedic Surgery
DX: M25.561 Pain in right knee (principal)
CPT/HCPCS: 73564

== ENCOUNTER 2023-07-25 13:30 | Outpatient (RCR) | payer OTHER, SELFPAY ==
--- NOTE | 2023-07-07 12:06 | HP.PTEVAL ---
Patient's Visit Information Visit Information Visit Information: DAVI CAMARA is a 28 year old F referred to Physical Therapy by TONIO Anaya with a diagnosis of Right Knee Pain. Date of Evaluation: 07/07/23 Physical Therapist: Monica Hernandez DPT Visit Plan Frequency: 2x /Week Duration: 4 Weeks Plan: Focus on LE ROM and pain mgmt HEP Given: Bolster Extn Seated and Supine, Heel Slide seated and supine, quad set Subjective Subjective: Daughter jumped onto her with her feet planted Jun 23- twisted- felt a pop- played co-ed softball- once she touched the base- knee locked she went down. She is now barely able to bend it and walk. 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 Still working but its really hard. Worst: 6/10 Agg: being on feet, bending. Best: 0/10 Eases: ice, elevation, rest. Pain is located along medial joint line and lateral joint line- its now shooting down the leg- its burning- dull and achy and sharp and shooting. Does have N/T in her toes- comes and goes. She has had x-rays which were negative but no MRI. She saw [facility] at [facility] but has not seen ortho- she goes to see Dr. Yuan as a consult but has not gotten a phone call yet. No injection or meds just Ibuprofen. No injuries to the knee prior to this. Dwain wrap but no brace to the knee. Sleep: when she bumps it but not really. PMHx: PE's, DVT's, asthma, IAH. Meds: topomax, diomax Objective Objective: Posture: FH, RS- can correct with verbal cues but does not maintain Gait: antalgic- decreased stance on right LE with poor heel toe strike. HR/TR: able with UE A but does weight shift SLS: 5 sec but does report pain Squat: weight shift to the left and reports pain Palpation: tender throughout medial and lateral joint line- quad medial and lateral and posterior knee ROM: 20-90 degrees. Strength: Ankle: 5/5, Knee: Right: Extn:19.0 Right: Flexion: 14 Left: Extn: 65 Left: Flexion: 40, Hip: 4/5 throughout SLR: significant lag due to ROM deficit Flex: HS: severe, Gastroc: severe Special Test: unable to perform special tests due to lack of ROM and pain Balance/Special Test Scores Lower Extremity Functional Score: 35 Goals Goal 1:: Patient will be I with HEP and progression Goal Time Frame: 4-6 Weeks Goal 2:: Patient will ambulate >300 feet with a normalized gait pattern Goal Time Frame: 4-6 Weeks Goal 3:: Patient will asc/desc 8 recip without a HR Goal Time Frame: 4-6 Weeks Goal 4:: Patient will demo 0-130 degrees without pain Goal Time Frame: 4-6 Weeks Goal 5:: Patient will report 80% improvement Goal Time Frame: 4-6 Weeks Rehabilitation Potential Physical Therapy Diagnosis: Patient presents with hypomobility- she has decreased LE ROM, LE and core strength/stabilization, flex and muscular endurance leading to abnormal gait and increased pain with ADL's. Rehabilitation Potential: Good Anticipated Interventions Patient/Client Instruction: Educate patient on: Benefits of Fitness Program Therapeutic Exercise to Include: Strength training, Endurance training, Balance training, Coordination, Agility training, Body mechanics, Postural training, Flexibilty training, Gait and locomotor training, Neuromotor development, Passive ROM, Active ROM, Dynamic Lumbar Stabilization and Scapular Strength/Stabilization For the Purpose of:: To improve muscle performance and motor function TENS: Yes Cryotherapy (ice pack, ice massage): Yes Thermo therapy (hot pack): Yes Ultrasound (thermal/non thermal): Yes Text: Thank you for the opportunity to evaluate your patient. For Medicare and Medicare HMO plans, please review the plan of care and approve it. It will need to be FAXED BACK to us at [phone] for Medicare purposes. For Medicare only, by signing this I certify the plan of care. Please let me know if there are questions or concerns regarding this plan of care. Physician Signature: Date:
--- NOTE | 2023-08-13 07:16 | HP.PT.NRP ---
Patient Information Patient Information: DAVI CAMARA was seen in my office for initial evaluation on 07/07/23. The following Plan of Care was established for this patient: POC Established Initial Frequency: 2x /Week Initial Duration: 4 Weeks Anticipated Interventions Patient/Client Instruction: Educate patient on: Benefits of Fitness Program Therapeutic Exercise to Include: Strength training, Endurance training, Balance training, Coordination, Agility training, Body mechanics, Postural training, Flexibilty training, Gait and locomotor training, Neuromotor development, Passive ROM, Active ROM, Dynamic Lumbar Stabilization and Scapular Strength/Stabilization For the Purpose of:: To improve muscle performance and motor function TENS: Yes Cryotherapy (ice pack, ice massage): Yes Thermo therapy (hot pack): Yes Ultrasound (thermal/non thermal): Yes Last Seen Last Seen: This patient was last seen in our office . Pertinent comments regarding their Physical therapy will appear below: Patient was to return to the MD for further evaluation for review of her MRI- she has not returned to PT and is appropriate to be d/c at this time. At this point I will be discontinuing this patient from physical therapy. I would be happy to see this patient again in the future if found appropriate by the physician. Thank you! Monica Hernandez, DPT Balance/Gait/Functional tests Balance/Special Test Scores Lower Extremity Functional Score: 35
== END 2023-07-25 19:00 | disposition home or self-care (01) ==
LOC: PT 13:30
PROVIDERS: PCP Registered Nurse; Referring Provider Registered Nurse; Visit Provider Registered Nurse
DX: S89.91XD Unspecified injury of right lower leg, subsequent encounter (principal)
CPT/HCPCS: 97014; 97110; 97162; G0283

== ENCOUNTER → 2023-07-30 | Outpatient (CLI) | payer OTHER, SELFPAY ==
--- NOTE | 2023-07-30 08:30 | MRI_ITS ---
STUDY: MRI RIGHT KNEE REASON FOR EXAM: Female, 28 years old. Sharp aching pain, burning around patella. TECHNIQUE: Standardized fat and water weighted pulse sequences were obtained in all 3 orthogonal planes. COMPARISON: Right knee radiographs dated 07/18/2023. FINDINGS: Normal medial meniscus. Normal hyaline cartilage of the medial femorotibial compartment. Normal medial femoral condyle and tibial plateau. Normal medial collateral ligamentous complex (MCL). Normal distal semimembranosus, gracilis and semitendinosus tendons. Normal lateral meniscus. Normal hyaline cartilage of the lateral femorotibial compartment. Normal lateral femoral condyle and tibial plateau. Normal proximal tibiofibular articulation. Normal lateral collateral (fibular) ligament. Normal popliteus tendon. Normal biceps femoris tendon. Normal anterior cruciate ligament (ACL). Normal posterior cruciate ligament (PCL). Normal congruent patellofemoral articulation. Normal hyaline cartilage of the patellofemoral compartment. Normal medial and lateral patellar retinaculum. Normal quadriceps tendon. Normal patellar tendon. Normal Hoffa''s fat pad. There is a tiny joint effusion. There is a tiny popliteal cyst. There is minimal prepatellar bursitis and minimal superficial infrapatellar bursitis (sagittal T2 series 4 images 11-13). The otherwise visualized osseous structures are unremarkable. MRI/Lower Ext Joint Only (Routine) IMPRESSION: Minimal prepatellar bursitis and minimal superficial infrapatellar bursitis. Tiny joint effusion with a tiny popliteal cyst. No discrete meniscal tear or acute ligamentous injury. Electronically Signed: Jeison Perry MD at 10:42 EDT ,
== END | disposition home or self-care (01) ==
LOC: MRI 07:55
PROVIDERS: PCP Registered Nurse; Referring Provider Orthopaedic Surgery; Visit Provider Orthopaedic Surgery
DX: M25.561 Pain in right knee (principal)
CPT/HCPCS: 73721

== ENCOUNTER → 2024-01-06 | Outpatient (CLI) | payer OTHER, SELFPAY ==
--- OUTSIDE RECORDS SUMMARY | 2024-01-06 06:38 | XMS RPT_ITS | CCD ---
Author Name Unknown Address [address] [place] [address] Organization [facility] Care Team Providers Care Restaurant Expeditor Name Role Phone Brissa Walls Unavailable Dustin Villalobos Unavailable Rosa Rivero Unavailable Unavailable Brissa Walls MD Primary Care Provider Brissa Walls MD Primary Care Provider Brissa Walls MD Primary Care Provider Brissa Walls MD Primary Care Provider BRISSA WALLS Primary Care Unavailab ANNMARIE Cortez Referring Unavailable BRISSA WALLS Primary Care Unavailab ANNMARIE Cortez Attending Unavailable NAOMIE TOWNSEND Attending Unavailable BRISSA WALLS Primary Care Unavailab JOANA Velasco Attending Unavailable BRISSA WALLS Primary Care Unavailab JOANA Velasco Referring Unavailable BRISSA WALLS Primary Care Unavailab JOEL Lowe Attending Unavailable JOANA GIORDANO Referring Unavailable BRISSA WALLS Primary Care Unavailab MOHINI Mackay JR Attending Unavailable BRISSA WALLS Primary Care Unavailab NAOMIE Peterson Attending Unavailable BRISSA WALLS Primary Care Unavailab TRISH Sewell Admitting Unavailable TRISH HURT Attending Unavailable BRISSA WALLS Primary Care Unavailab NAOMIE Peterson Referring Unavailable MOHINI CISNEROS JR Attending Unavailable BRISSA WALLS Primary Care Unavailab MOHINI Mackay JR Attending Unavailable MOHINI CISNEROS JR Referring Unavailable BRISSA WALLS Primary Care Unavailab NAOMIE Peterson Attending Unavailable BRISSA WALLS Primary Care Unavailab MOHINI Mackay JR Referring Unavailable BRISSA WALLS Primary Care Unavailab LYN Rios Attending Unavailable BRISSA WALLS Primary Care Unavailab NAOMIE Peterson Attending Unavailable BRISSA WALLS Primary Care Unavailab MOHINI Mendes Referring Unavailable NAOMIE TOWNSEND Referring Unavailable BRISSA WALLS Primary Care Unavailab RADHA Mesa Attending Unavailable NAOMIE TOWNSEND Referring Unavailable BRISSA WALLS Primary Care Unavailab BRISSA Gaona Primary Care Unavailab ANNMARIE Cortez Attending Unavailable Allergies Allergy Classification Reported Allergen(s) Allergy Type Date of Onset Reaction(s) Facility (20 sources) Clindamycin; Translations: [CLINDAMYCIN] Drug Allergy 10-03-2022 Swelling, Itching, Other: See Comments [facility] Medications Current Medications Medication Drug Class(es) Dates Sig (Normalized) Sig (Original) 12 hr acetaZOLAMIDE 500 mg extended release oral capsule (20 sources) Carbonic Anhydrase Inhibitor Start: 12-12-2023 End: 03-11-2024 take 1 capsule by mouth once daily acetaZOLAMIDE SR (DIAMOX SEQUELS) 500 mg capsule Indications: IIH (idiopathic intracranial hypertension) Take 1 capsule by mouth once daily. 90 capsule 0 12/12/2023 03/11/2024 Active Completed/Discontinued Medications Medication Drug Class(es) Dates Sig (Normalized) Sig (Original) amoxicillin 875 mg oral tablet (12 sources) Penicillin-class Antibacterial Start: 01-20-2023 End: 09-01-2023 take 1 tablet by mouth twice daily amoxicillin (AMOXIL) 875 mg tablet Take 1 tablet by mouth twice daily. 0 01/20/2023 09/01/2023 Discontinued Problems Active Problems Problem Classification Problem Date Documented Da te Episodic/Chronic Abdominal pain (4 sources) Abdominal pain; Translations: [Abdominal pain, unspecified site] 09-29-2021 Episodic Past or Other Problems Problem Classification Problem Date Documented Da te Episodic/Chronic E Codes: Adverse effects of medical drugs (2 sources) Adverse reaction to drug; Translations: [Adverse effect of unspecified drugs, medicaments and biological substances, initial encounter] Onset: 04-29-2023 Episodic Other connective tissue disease (20 sources) Peroneal tendinitis of left lower limb; Translations: [Peroneal tendinitis, left leg] Onset: 02-18-2022 Episodic Other injuries and conditions due to external causes (1 source) Unspecified injury of right lower leg, initial encounter; Translations: [Right knee injury, initial encounter] Onset: 07-02-2023 Episodic Other non-traumatic joint disorders (18 sources) Shoulder pain; Translations: [Pain in right shoulder] Onset: 08-20-2017 08-20-2017 Episodic Other non-traumatic joint disorders (13 sources) Pain in right shoulder; Translations: [Pain in joint, shoulder region] Onset: 08-20-2017 08-20-2017 Episodic Sprains and strains (20 sources) Tendon injury - lower limb; Translations: [Strain of muscle(s) and tendon(s) of peroneal muscle group at lower leg level, left leg, subsequent encounter] Onset: 09-10-2021 09-10-2021 Episodic Results Test Name Value Interpretation Reference Range Facil ity Vital Signs Date Time Vital Sign Value Performing [facility] 16:34-0500 Body weight 90.72 kg Mohini Cisneros Jr., MD Work Phone: [facility] 12-12-2023 16:34-0500 Diastolic blood pressure 78 mm[Hg] Mohini Cisneros Jr., MD Work Phone: [facility] 12-12-2023 16:34-0500 Heart rate 148 /min Mohini Cisneros Jr., MD Work Phone: [facility] 12-12-2023 16:34-0500 Respiratory rate 16 /min Mohini Cisneros Jr., MD Work Phone: [facility] 12-12-2023 16:34-0500 SaO2% (BldA) [Mass fraction] 99 % Mohini Cisneros Jr., MD Work Phone: [facility] 12-12-2023 16:34-0500 Systolic blood pressure 130 mm[Hg] Mohini Cisneros Jr., MD Work Phone: [facility] 09-09-2023 14:39-0400 Body weight 94.35 kg Naomie Nolaner PA-C Work Phone: [facility] 09-09-2023 14:39-0400 Diastolic blood pressure 84 mm[Hg] Naomie Queener PA-C Work Phone: [facility] 09-09-2023 14:39-0400 Heart rate 72 /min Naomie Nolaner PA-C Work Phone: [facility] 09-09-2023 14:39-0400 Respiratory rate 18 /min Naomie Queener PA-C Work Phone: [facility] 09-09-2023 14:39-0400 SaO2% (BldA) [Mass fraction] 100 % Naomie Nolaner PA-C Work Phone: [facility] 09-09-2023 14:39-0400 Systolic blood pressure 125 mm[Hg] Naomie Nolaner PA-C Work Phone: [facility] 09-01-2023 16:09-0400 Body height 153 cm Annmarie Haagen PROCESS MANAGER.COMMERCIAL LINES ACCOUNT ASSISTANT Work Phone: [facility] 09-01-2023 16:09-0400 Body weight 94.35 kg Annmarie Haagen PROCESS MANAGER.COMMERCIAL LINES ACCOUNT ASSISTANT Work Phone: [facility] 09-01-2023 16:09-0400 Diastolic blood pressure 82 mm[Hg] Annmarie Haagen PROCESS MANAGER.COMMERCIAL LINES ACCOUNT ASSISTANT Work Phone: [facility] 09-01-2023 16:09-0400 Heart rate 79 /min Annmarie Haagen PROCESS MANAGER.COMMERCIAL LINES ACCOUNT ASSISTANT Work Phone: [facility] 09-01-2023 16:09-0400 Respiratory rate 16 /min Annmarie Haagen PROCESS MANAGER.COMMERCIAL LINES ACCOUNT ASSISTANT Work Phone: [facility] 09-01-2023 16:09-0400 SaO2% (BldA) [Mass fraction] 99 % Annmarie Haagen PROCESS MANAGER.COMMERCIAL LINES ACCOUNT ASSISTANT Work Phone: [facility] 09-01-2023 16:09-0400 Systolic blood pressure 124 mm[Hg] Annmarie Haagen PROCESS MANAGER.COMMERCIAL LINES ACCOUNT ASSISTANT Work Phone: [facility] 07-02-2023 13:44-0400 Diastolic blood pressure 86 mm[Hg] Annmarie Haagen PROCESS MANAGER.COMMERCIAL LINES ACCOUNT ASSISTANT Work Phone: [facility] 07-02-2023 13:44-0400 Heart rate 67 /min Annmarie Haagen PROCESS MANAGER.COMMERCIAL LINES ACCOUNT ASSISTANT Work Phone: [facility] 07-02-2023 13:44-0400 Respiratory rate 16 /min Annmarie Haagen PROCESS MANAGER.COMMERCIAL LINES ACCOUNT ASSISTANT Work Phone: [facility] 07-02-2023 13:44-0400 SaO2% (BldA) [Mass fraction] 97 % Annmarie Haagen PROCESS MANAGER.COMMERCIAL LINES ACCOUNT ASSISTANT Work Phone: [facility] 07-02-2023 13:44-0400 Systolic blood pressure 132 mm[Hg] Annmarie Haagen PROCESS MANAGER.COMMERCIAL LINES ACCOUNT ASSISTANT Work Phone: [facility] 04-29-2023 11:37-0400 Body temperature 98.8 [degF] Naomie Queener PA-C Work Phone: [facility] 04-29-2023 11:37-0400 Body weight 104.78 kg Naomie Queener PA-C Work Phone: [facility] 04-29-2023 11:37-0400 Diastolic blood pressure 85 mm[Hg] Naomie Queener PA-C Work Phone: [facility] 04-29-2023 11:37-0400 Heart rate 63 /min Naomie Queener PA-C Work Phone: [facility] 04-29-2023 11:37-0400 Respiratory rate 16 /min Naomie Queener PA-C Work Phone: [facility] 04-29-2023 11:37-0400 SaO2% (BldA) [Mass fraction] 99 % Naomie Queener PA-C Work Phone: [facility] 04-29-2023 11:37-0400 Systolic blood pressure 139 mm[Hg] Naomie Townsend PA-C Work Phone: [facility] 03-19-2023 09:15-0400 Body height 149.9 cm Mohini Cisneros Jr., MD Work Phone: [facility] 03-19-2023 09:15-0400 Body weight 104.78 kg Mohini Cisneros Jr., MD Work Phone: [facility] 03-19-2023 09:15-0400 Diastolic blood pressure 76 mm[Hg] Mohini Cisneros Jr., MD Work Phone: [facility] 03-19-2023 09:15-0400 Heart rate 89 /min Mohini Cisneros Jr., MD Work Phone: [facility] 03-19-2023 09:15-0400 SaO2% (BldA) [Mass fraction] 99 % Mohini Cisneros Jr., MD Work Phone: [facility] 03-19-2023 09:15-0400 Systolic blood pressure 108 mm[Hg] Mohini Cisneros Jr., MD Work Phone: [facility] 03-11-2023 15:05-0400 Diastolic blood pressure 59 mm[Hg] Trish Kazmierczak PROCESS MANAGER.COMMERCIAL LINES ACCOUNT ASSISTANT Work Phone: [facility] 03-11-2023 15:05-0400 Heart rate 78 /min Trish Kazmierczak PROCESS MANAGER.COMMERCIAL LINES ACCOUNT ASSISTANT Work Phone: [facility] 03-11-2023 15:05-0400 Respiratory rate 18 /min Trish Kazmierczak PROCESS MANAGER.COMMERCIAL LINES ACCOUNT ASSISTANT Work Phone: [facility] 03-11-2023 15:05-0400 SaO2% (BldA) [Mass fraction] 95 % Trish Kazmierczak PROCESS MANAGER.COMMERCIAL LINES ACCOUNT ASSISTANT Work Phone: [facility] 03-11-2023 15:05-0400 Systolic blood pressure 111 mm[Hg] Trish Kazmierczak PROCESS MANAGER.COMMERCIAL LINES ACCOUNT ASSISTANT Work Phone: [facility] 03-11-2023 13:42-0400 Body temperature 98.01 [degF] Trish Hurt PROCESS MANAGER.COMMERCIAL LINES ACCOUNT ASSISTANT Work Phone: [facility] 01-22-2023 14:34-0400 Body temperature 99.1 [degF] Naomie Nolaner PA-C Work Phone: [facility] 01-22-2023 14:34-0400 Body weight 105.51 kg Naomie Nolaner PA-C Work Phone: [facility] 01-22-2023 14:34-0400 Diastolic blood pressure 89 mm[Hg] Naomie Nolaner PA-C Work Phone: [facility] 01-22-2023 14:34-0400 Heart rate 90 /min Naomie Nolaner PA-C Work Phone: [facility] 01-22-2023 14:34-0400 Respiratory rate 16 /min Naomie Nolaner PA-C Work Phone: [facility] 01-22-2023 14:34-0400 SaO2% (BldA) [Mass fraction] 97 % Naomie Nolaner PA-C Work Phone: [facility] 01-22-2023 14:34-0400 Systolic blood pressure 128 mm[Hg] Naomie Nolaner PA-C Work Phone: [facility] 01-17-2023 12:34-0500 Body temperature 98.71 [degF] Lyn Beckwith APRN.COMMERCIAL LINES ACCOUNT ASSISTANT Work Phone: [facility] 01-17-2023 12:34-0500 Body weight 104.78 kg Lyn Beckwith APRN.COMMERCIAL LINES ACCOUNT ASSISTANT Work Phone: [facility] 01-17-2023 12:34-0500 Diastolic blood pressure 80 mm[Hg] Lyn Beckwith APRN.COMMERCIAL LINES ACCOUNT ASSISTANT Work Phone: [facility] 01-17-2023 12:34-0500 Heart rate 74 /min Lyn Beckwith APRN.COMMERCIAL LINES ACCOUNT ASSISTANT Work Phone: [facility] 01-17-2023 12:34-0500 Systolic blood pressure 128 mm[Hg] Lyn Beckwith PROCESS MANAGER.COMMERCIAL LINES ACCOUNT ASSISTANT Work Phone: [facility] 09-02-2022 15:22-0400 Body height 154 cm Annmarie Hanna PROCESS MANAGER.COMMERCIAL LINES ACCOUNT ASSISTANT Work Phone: [facility] 09-02-2022 15:22-0400 Body weight 103.42 kg Annmarie Hanna PROCESS MANAGER.COMMERCIAL LINES ACCOUNT ASSISTANT Work Phone: [facility] 09-02-2022 15:22-0400 Diastolic blood pressure 90 mm[Hg] Annmarie Hanna PROCESS MANAGER.COMMERCIAL LINES ACCOUNT ASSISTANT Work Phone: [facility] 09-02-2022 15:22-0400 Heart rate 73 /min Annmarie Hanna PROCESS MANAGER.COMMERCIAL LINES ACCOUNT ASSISTANT Work Phone: [facility] 09-02-2022 15:22-0400 Respiratory rate 18 /min Annmarie Hanna PROCESS MANAGER.COMMERCIAL LINES ACCOUNT ASSISTANT Work Phone: [facility] 09-02-2022 15:22-0400 SaO2% (BldA) [Mass fraction] 98 % Annmarie Hanna PROCESS MANAGER.COMMERCIAL LINES ACCOUNT ASSISTANT Work Phone: [facility] 09-02-2022 15:22-0400 Systolic blood pressure 124 mm[Hg] Annmarie Hanna PROCESS MANAGER.COMMERCIAL LINES ACCOUNT ASSISTANT Work Phone: [facility] 07-24-2022 09:59-0400 Body temperature 98.2 [degF] Renee Podlogar PROCESS MANAGER.COMMERCIAL LINES ACCOUNT ASSISTANT Work Phone: [facility] 07-24-2022 09:59-0400 Body weight 104.96 kg Renee Podlogar PROCESS MANAGER.COMMERCIAL LINES ACCOUNT ASSISTANT Work Phone: [facility] 07-24-2022 09:59-0400 Diastolic blood pressure 88 mm[Hg] Renee Podlogar PROCESS MANAGER.COMMERCIAL LINES ACCOUNT ASSISTANT Work Phone: [facility] 07-24-2022 09:59-0400 Heart rate 75 /min Renee Podlogar PROCESS MANAGER.COMMERCIAL LINES ACCOUNT ASSISTANT Work Phone: [facility] 07-24-2022 09:59-0400 Respiratory rate 18 /min Renee Podlogar PROCESS MANAGER.COMMERCIAL LINES ACCOUNT ASSISTANT Work Phone: [facility] 07-24-2022 09:59-0400 SaO2% (BldA) [Mass fraction] 98 % Renee Podlogar PROCESS MANAGER.COMMERCIAL LINES ACCOUNT ASSISTANT Work Phone: [facility] 07-24-2022 09:59-0400 Systolic blood pressure 118 mm[Hg] Renee Podlogar PROCESS MANAGER.COMMERCIAL LINES ACCOUNT ASSISTANT Work Phone: [facility] 12-27-2021 13:39-0500 Body height 150 cm Brissa Walls Other Phone: [facility] 12-27-2021 13:39-0500 Body temperature 97.88 [degF] Brissa Walls Other Phone: [facility] 12-27-2021 13:39-0500 Diastolic blood pressure 93 mm[Hg] Brissa Walls Other Phone: [facility] 12-27-2021 13:39-0500 Heart rate 92 /min Brissa Walls Other Phone: [facility] 12-27-2021 13:39-0500 SaO2% (BldA) [Mass fraction] 99 % Brissa Walls Other Phone: [facility] 12-27-2021 13:39-0500 Systolic blood pressure 135 mm[Hg] Brissa Walls Other Phone: [facility] 09-29-2021 09:30-0500 Diastolic blood pressure 67 mm[Hg] Brissa Walls Other Phone: [facility] 09-29-2021 09:30-0500 Heart rate 80 /min Brissa Walls Other Phone: [facility] 09-29-2021 09:30-0500 Respiratory rate 17 /min Brissa Walls Other Phone: [facility] 09-29-2021 09:30-0500 SaO2% (BldA) [Mass fraction] 97 % Brissa Walls Other Phone: [facility] 09-29-2021 09:30-0500 Systolic blood pressure 118 mm[Hg] Brissa Walls Other Phone: [facility] 09-29-2021 05:36-0500 Body height 149.8 cm Brissa Walls Other Phone: [facility] 09-29-2021 05:36-0500 Body temperature 98.06 [degF] Brissa Walls Other Phone: [facility] 09-29-2021 05:36-0500 Body weight 103 kg Brissa Walls Other Phone: [facility] Encounters Encounter Date Encounter Type Care Provider Facility Start: 12-30-2023 Telephone encounter Dhruv Walls MD Work Phone: [facility] Procedures Date Procedure Procedure Detail Performing Clinician Start: 10-14-2023 Computerized ophthal rachelle imaging optic nerve Joana Giordano OD Work Phone: Start: 03-11-2023 Glucose body fluid o ther than blood Mohini Cisneros MD Work Phone: Start: 11-01-2021 Mri any jt lower ext rem w/o contrast matrl Kofi Matute Work Phone: Start: 10-28-2019 Adult depression scr eening assessment Mri (I-Stat/1.5t) Work Phone: Plan of Treatment Date Care Activity Detail Author Start: 10-16-2030 Urine microalbumin profile [facility] Start: 11-10-2023 Depression Assessment Depression Assessment [facility] Start: 07-11-2023 Covid-19 Vaccine () Covid-19 Vaccine () [facility] Start: 07-11-2023 Influenza vaccination [facility] Start: 06-02-2023 PAP TESTING PAP TESTING [facility] Start: 06-02-2023 Screening for malignant neoplasm of cervix Pap Testing [facility] Start: 04-29-2023 End: 06-29-2023 Comprehensive metabolic 2000 panel - Serum or Plasma [facility] Work Phone: Immunizations Immunization Date Immunization Notes Care Provider Kristine lomax 08-28-2022 influenza virus vacc ine, unspecified formulation Annmarie Hanna PROCESS MANAGER.COMMERCIAL LINES ACCOUNT ASSISTANT Work Phone: [facility] 10-16-2020 influenza, injectabl e, quadrivalent, contains preservative Mri (I-Stat/1.5t) Work Phone: [facility] 10-16-2020 tetanus toxoid, redu porsha diphtheria toxoid, and acellular pertussis vaccine, adsorbed Mri (I-Stat/1.5t) Work Phone: [facility] 06-27-2020 hepatitis B vaccine, adult dosage Mri (I-Stat/1.5t) Work Phone: [facility] 10-29-2019 influenza, injectabl e, quadrivalent, contains preservative Mri (I-Stat/1.5t) Work Phone: [facility] 10-22-2015 influenza, seasonal, injectable, preservative free Mri (I-Stat/1.5t) Work Phone: [facility] 08-07-2005 hepatitis B vaccine, pediatric or pediatric/adolescent dosage Mri (I-Stat/1.5t) Work Phone: [facility] 06-03-2005 hepatitis B vaccine, pediatric or pediatric/adolescent dosage Mri (I-Stat/1.5t) Work Phone: [facility] 05-25-1998 diphtheria, tetanus toxoids and acellular pertussis vaccine Mri (I-Stat/1.5t) Work Phone: [facility] 05-25-1998 measles, mumps and rubella virus vaccine Mri (I-Stat/1.5t) Work Phone: [facility] 05-25-1998 poliovirus vaccine, inactivated Mri (I-Stat/1.5t) Work Phone: [facility] 06-04-1994 diphtheria, tetanus toxoids and acellular pertussis vaccine Mri (I-Stat/1.5t) Work Phone: [facility] 06-04-1994 haemophilus influenz ae type b vaccine, PRP-T conjugate Mri (I-Stat/1.5t) Work Phone: [facility] 06-04-1994 measles, mumps and rubella virus vaccine Mri (I-Stat/1.5t) Work Phone: [facility] 06-04-1994 poliovirus vaccine, inactivated Mri (I-Stat/1.5t) Work Phone: [facility] 1993 diphtheria, tetanus toxoids and acellular pertussis vaccine Mri (I-Stat/1.5t) Work Phone: [facility] 1993 haemophilus influenz ae type b vaccine, PRP-T conjugate Mri (I-Stat/1.5t) Work Phone: [facility] 1993 diphtheria, tetanus toxoids and acellular pertussis vaccine Mri (I-Stat/1.5t) Work Phone: [facility] 1993 haemophilus influenz ae type b vaccine, PRP-T conjugate Mri (I-Stat/1.5t) Work Phone: [facility] 1993 poliovirus vaccine, inactivated Mri (I-Stat/1.5t) Work Phone: [facility] 1993 diphtheria, tetanus toxoids and acellular pertussis vaccine Mri (I-Stat/1.5t) Work Phone: [facility] 1993 haemophilus influenz ae type b vaccine, PRP-T conjugate Mri (I-Stat/1.5t) Work Phone: [facility] 1993 poliovirus vaccine, inactivated Mri (I-Stat/1.5t) Work Phone: [facility] Payers Date Payer Category Payer Private Health Insurance [employer] A [employer] [id number] 2022-Present [phone] [address] [place] [address] PPO [id number] 2022 Private Health Insurance [id number] 2021 Unknown MMO MMO TPA [id number] 2021-Present [address] [place] [address] PPO [id number] 2019 Unknown 2019 Unknown [employer] PPO OOS [id number] 2019-Present [phone] [address] [place] [address] PPO [id number] Social History Date Type Detail Facility [facility] Tobacco smoking consumption unknown [facility] Start: 10-10-2021 End: 09-02-2022 Tobacco smoking status NHIS Light tobacco smoker [facility] Start: 10-10-2021 End: 03-19-2023 Tobacco use and exposure Smokeless tobacco non-user [facility] Start: 10-10-2021 End: 02-21-2023 Alcohol intake Current drinker of alcohol (finding) [facility] Start: 10-29-2019 End: 01-17-2023 History SDOH Alcohol Frequency 2 [facility] Start: 10-29-2019 End: 01-17-2023 History SDOH Alcohol Std Drinks 1 [facility] Start: 03-20-2017 History SDOH Alcohol Comment rare-wine [facility] Start: 10-29-2019 End: 01-17-2023 History SDOH Social Connections Phone 5 [facility] Start: 10-29-2019 End: 01-17-2023 History SDOH Social Connections Christian 3 [facility] Start: 10-28-2019 Education 21 [facility] Start: 1995 Sex Assigned At Female [facility] Start: 09-17-2021 End: 02-06-2022 Exposure to SARS-CoV-2 (event) Not sure [facility] Start: 07-24-2022 End: 01-17-2023 History SDOH Alcohol Std Drinks 0 [facility] Start: 07-24-2022 History SDOH Physical Activity MPS 6 [facility] Start: 07-12-2022 End: 07-22-2022 Exposure to SARS-CoV-2 (event) Unable to assess [facility] Work Phone: Start: 03-19-2023 Tobacco smoking status NHIS Ex-smoker [facility] History of tobacco use Current smoker [facility] History of tobacco use Cigarette Smoker [facility] Start: 03-19-2023 End: 12-24-2023 Alcohol intake Lifetime non-drinker (finding) [facility] [facility] Start: 01-17-2023 End: 03-19-2023 History of Social function [facility] Start: 01-17-2023 End: 03-19-2023 Social connection and isolation panel [facility] Do you belong to any clubs or organizations such as druze groups, unions, [employer] or athletic groups, or school groups? Yes [facility] Are you now , , , , never or living with a partner? [facility] How often to you hav e a drink containing alcohol? Never [facility] How many standard dr inks containing alcohol do you have on a typical day? Patient does not drink [facility] Do you feel stress - tense, restless, nervous, or anxious, or unable to sleep at night because your mind is troubled all the time - these days [OSQ] Only a little [facility] (I/We) worried wheth er (my/our) food would run out before (I/we) got money to buy more. Never true [facility] In the past 12 month s, was there a time when you were not able to pay the mortgage or rent on time? No [facility] Start: 08-02-2019 Gender identity Identifies as female gender (finding) [facility] Start: 08-02-2019 Sexual orientation Heterosexual (finding) [facility] Clinical Notes 02-06-2022 to 12-30-2023 Telephone Encounter - Lo Kingston LPN - 12/30/2023 12:35 PM ESTTelephone Encounter - Naomie Townsend PA-C - 12/30/2023 12:23 PM ESTPatient InstructionsPatient InstructionsPatient Instructions Note Date & Type Note Facility 12-30-2023 Miscellaneous Notes Order faxed. Lo Kingston LPN New order without contrast was placed. Mariana calling from [facility] Central Scheduling regarding patient 's recent order for MRV BRAIN WO/W IVCON. Mariana states they can only complete an MRV BRAIN without contrast. If provider agreeable with this, please fax new order for MRV BRAIN WO IVCON to fax #: [phone]. Thank you. documented in this encounter [facility] 12-25-2023 Miscellaneous Notes Phone call placed to patient clarification, patient requested MRI, MRV to be faxed to [facility], Lumbar Puncture will be scheduled within [facility]. Orders faxed to [phone]. Ladonna Link LPN. documented in this encounter [facility] 12-24-2023 Note HNO ID: [id number] Author: NAOMIE TOWNSEND PA-C Service: ? Author Type: Physician Top Lift Trimmer Type: Progress Notes Filed: 12/24/2023 12:41 Note Text: [facility] Follow Up / Established Virtual Visit I have communicated my name and active licensure. The patient's identity and physical location were verified at the time of this visit. Either the patient or their legal food service representative has been informed of the risks and benefits of -- and alternatives to -- treatment through a remote evaluation and consents to proceed with the evaluation remotely. Individuals who were included in, or assisted with the encounter were: Stephanie Dickey Naomie Townsend PA-C Chief Complaint/Issues: Stephanie Dickey is a 28 year old female seen in the [facility] for: Follow up Most Recent Neurological Assessment and Plan: Last Filed Values None HPI/Interval History: Last Visit: 12/12/[address] Cisneros ASSESSMENT/PLAN: 1. IIH (idiopathic intracranial hypertension) - ICD9: 348.2, ICD10: G93.2 (primary diagnosis) 2. Obstructive sleep apnea - ICD9: 327.23, ICD10: G47.33 3. Class 2 obesity with body mass index (BMI) of 38.0 to 38.9 in adult, unspecified obesity type, unspecified whether serious comorbidity present - ICD9: 278.00, V85.38, ICD10: E66.9, Z68.38 Patient with known history of IIH, that responded to therapeutic LP earlier this year. Workup was otherwise unremarkable. Was doing quite well on Diamox and low dose of Topamax until 07/2023 when headaches increased from couple days per month to up to 4 days per week. Cause of change uncertain and pt has not responded to either treatment for migraines or tension headaches thus far. Neuro exam remains non focal and no reports of significant papilledema even during dilated optometry evaluations. Significant to history is that patient did lose significant amount of weight at time of worsening of headaches. In addition, headaches are worse when standing and improve when lying (when present) and can respond to caffeine. Thus question with weight change, the II Hypertension we were treating now is becoming II Hypotension due to medications. D/w pt, and will try first to reduce the dose of Diamox to see if any improvement (decrease from 500mg BID to daily). For now will continue Topamax. Pt will track headaches over the next 2 weeks and if improving, then possibly headaches were over treated following weight loss. If headaches were to worsen, the pt will contact us immediately and will increase Diamox back to 500mg BID and consider repeat diagnostic/therapeutic LP. Pt agrees with plan. In meantime, will also again request HSAT as possible underlying TJ (risk factors of obesity and crowded airway) may contribute to headaches. Pt agrees with plan. Mohini Cisneros MD Today: Patient is here for headache/migraine follow up. Saw Dr. Cisneros on 12/12/23 for IIH. Had LP in 03/02 with opening pressure at 26. Increase in HIGH to four times a week. There is concern for intracranial hypotension due to diamox 500mg bid and instructed to decrease this, continued TPM. HIGH worsened and will increase diamox to 500mg bid and do therapeutic LP. Since last visit headaches have significantly worsened. Notes that as soon as she decreased the Diamox to once a day her headaches increase in severity and began continuous. Was previously having only 4 headaches a week and is now had a continuous headache ever since. Did increase the Diamox back up to 500 mg twice daily 5 days later, but still is experiencing a continuous headache. Notes that increasing the Diamox did decrease the severity but did not resolve the headache. Notes that she feels very fatigued, states that people have been telling her that she looks very tired, notes that this is similar to when she had elevated pressure in the past. Notes that she is also more shaky, had an episode last weekend where she felt she was going to pass out, did not lose consciousness but was concerned she would. Denies any vision loss, but notes that the spots in her vision have increased. Last optometry visit was 10-14-2023 and did have some mild fullness in her optic disks bilaterally. Notes that her headaches are now worse with laughing, crying, worse with laying flat and this was not the case before. No other new symptoms or concerns today. Current Headache treatment Preventative: Diamox 500mg twice daily, TPM 75mg. Medications effective? no Total headache days per month: daily Total headache attacks per month: daily Headache free days: No Duration of attacks: continuously Severity of headaches? Moderate to severe Location: frontal and to the neck. Aura: Dots/Spots Accompanying symptoms: nausea, lightheaded, confusion. Quality:pressure. Worse with activity: Yes Pain today: / Prior Therapies Topiramate- in highschool Elavil- no help Metoprolo (more content not included)... [facility] 12-24-2023 Miscellaneous Notes Addended by: NAOMIE TOWNSEND on: 12/24/2023 12:41 PM Modules accepted: Orders documented in this encounter [facility] 12-24-2023 Instructions Naomie Townsend PA-C - 12/24/2023 11:28 AM EST Will reach out to Dr. Cisneros about LP vs increasing topiramate Follow up with Dr. Cisneros documented in this encounter [facility] 12-24-2023 History of Presen t illness Narrative Images from the original note were not included. [facility] Follow Up / Established Virtual Visit I have communicated my name and active licensure. The patient's identity and physical location were verified at the time of this visit. Either the patient or their legal food service representative has been informed of the risks and benefits of -- and alternatives to -- treatment through a remote evaluation and consents to proceed with the evaluation remotely. Individuals who were included in, or assisted with the encounter were: Stephanie Dickey Naomie Townsend PA-C Chief Complaint/Issues: Stephanie Dickey is a 28 year old female seen in the [facility] for: Follow up Most Recent Neurological Assessment and Plan: Last Filed Values None HPI/Interval History: Last Visit: 12/12/[address] Cisneros ASSESSMENT/PLAN: 1. IIH (idiopathic intracranial hypertension) - ICD9: 348.2, ICD10: G93.2 (primary diagnosis) 2. Obstructive sleep apnea - ICD9: 327.23, ICD10: G47.33 3. Class 2 obesity with body mass index (BMI) of 38.0 to 38.9 in adult, unspecified obesity type, unspecified whether serious comorbidity present - ICD9: 278.00, V85.38, ICD10: E66.9, Z68.38 Patient with known history of IIH, that responded to therapeutic LP earlier this year. Workup was otherwise unremarkable. Was doing quite well on Diamox and low dose of Topamax until 07/2023 when headaches increased from couple days per month to up to 4 days per week. Cause of change uncertain and pt has not responded to either treatment for migraines or tension headaches thus far. Neuro exam remains non focal and no reports of significant papilledema even during dilated optometry evaluations. Significant to history is that patient did lose significant amount of weight at time of worsening of headaches. In addition, headaches are worse when standing and improve when lying (when present) and can respond to caffeine. Thus question with weight change, the II Hypertension we were treating now is becoming II Hypotension due to medications. D/w pt, and will try first to reduce the dose of Diamox to see if any improvement (decrease from 500mg BID to daily). For now will continue Topamax. Pt will track headaches over the next 2 weeks and if improving, then possibly headaches were over treated following weight loss. If headaches were to worsen, the pt will contact us immediately and will increase Diamox back to 500mg BID and consider repeat diagnostic/therapeutic LP. Pt agrees with plan. In meantime, will also again request HSAT as possible underlying TJ (risk factors of obesity and crowded airway) may contribute to headaches. Pt agrees with plan. Mohini Cisneros MD Today: Patient is here for headache/migraine follow up. Saw Dr. Cisneros on 12/12/23 for IIH. Had LP in 03/02 with opening pressure at 26. Increase in HIGH to four times a week. There is concern for intracranial hypotension due to diamox 500mg bid and instructed to decrease this, continued TPM. HIGH worsened and will increase diamox to 500mg bid and do therapeutic LP. Since last visit headaches have significantly worsened. Notes that as soon as she decreased the Diamox to once a day her headaches increase in severity and began continuous. Was previously having only 4 headaches a week and is now had a continuous headache ever since. Did increase the Diamox back up to 500 mg twice daily 5 days later, but still is experiencing a continuous headache. Notes that increasing the Diamox did decrease the severity but did not resolve the headache. Notes that she feels very fatigued, states that people have been telling her that she looks very tired, notes that this is similar to when she had elevated pressure in the past. Notes that she is also more shaky, had an episode last weekend where she felt she was going to pass out, did not lose consciousness but was concerned she would. Denies any vision loss, but notes that the spots in her vision have increased. Last optometry visit was 10-14-2023 and did have some mild fullness in her optic disks bilaterally. Notes that her headaches are now worse with laughing, crying, worse with laying flat and this was not the case before. No other new symptoms or concerns today. Current Headache treatment Preventative: Diamox 500mg twice daily, TPM 75mg. Medications effective? no Total headache days per month: daily Total headache attacks per month: daily Headache free days: No Duration of attacks: continuously Severity of headaches? Moderate to severe Location: frontal and to the neck. Aura: Dots/Spots Accompanying symptoms: nausea, lightheaded, confusion. Quality:pressure. Worse with activity: Yes Pain today: 02/17 Prior Therapies Topiramate- in highschool Elavil- no help Metoprolol Sumatriptan no effect Another triptan no effect Flexeril Diamox Ubrelvy General Examination: She is alone. General: Awake, alert, interactive, no acute distress, good nutritional status, normal development, well-kept Only a limited general examination was done. Neurological Exam Mental Status Alert, fully oriented, attentive, with normal cognition, memory, speech and affect. Cranial Nerves Extraocular movements normal. No nystagmus, no ptosis, and pupils equal. Face symmetrical. Motor Examination and Coordination Distance Motor Examination Arms: Well-coordinated symmetrical strong antigravity movements of both arms. Manipulates phone and small objects well. No tremor or adventitious movements. No apparent muscle atrophy or deformity/contracture. Assessment & Plan 12/24/2023 - General Neurology, Naomie Townsend PA-C ASSESSMENT ASSESSMENT/PLAN: 1. IIH (idiopathic intracranial hypertension) - ICD9: 348.2, ICD10: G93.2 (primary diagnosis) 2. Obstructive sleep apnea - ICD9: 327.23, ICD10: G47.33 3. Class 2 obesity with body mass index (BMI) of 38.0 to 38.9 in adult, unspecified obesity type, unspecified whether serious comorbidity present - ICD9: 278.00, V85.38, ICD10: E66.9, Z68.38 Patient with acute worsening of her headaches after decreasing Diamox from 500 mg twice daily to once daily. Did reach out about 5 days later and this was again increased to twice daily. However her headaches have not went back to baseline, have been continuous and acutely worsening with laughing, crying and laying flat. Notes some increased spots in her vision but no vision loss. States it feels similar to when her pressure was elevated intracranially in the past. At previous appointment to discuss possible therapeutic LP. Will reach out to Dr. Cisneros regarding further treatment including possible medication adjustments versus therapeutic lumbar puncture. Discussed red flag signs symptoms that would warrant going to the emergency department and patient agrees and understands. No new symptoms at this time. Patient agreeable to treatment plan of care at this time, all questions were answered. Patient to follow-up with Dr. Cisneros in 2 to 3 months or sooner should symptoms change or worsen. Naomie Townsend PA-C Addendum: [address] Cisneros, who will order lumbar puncture. I will order MRI and MRV of the brain with and without contrast with CINE flow CAR to evaluate for IIH and venous thrombosis, stenosis contributing patient's symptoms. Will send Edhub message to patient alerting her of change. No diagnosis found. No follow-ups on file. = Data Review Objective Current Outpatient Medications Medication Sig topiramate (TOPAMAX) 25 mg tablet Take 3 tablets by mouth daily at bedtime. acetaZOLAMIDE SR (DIAMOX SEQUELS) 500 mg capsule Take 1 capsule by mouth once daily. No current facility-administered medications for this visit. ACTIVE PROBLEM LIST Acute Pain of Right Shoulder Morbid (Severe) Obesity Due to Excess Calories (Hcc) Chronic Migraine Peroneal Tendon Tear, Left, Subsequent Encounter Peroneal Tendonitis, Left PAST MEDICAL HISTORY Diagnosis Date Anxiety Asthma Chronic migraine Depression DVT (deep venous thrombosis) (HCC) Pseudotumor cerebri Seeing optho Pulmonary embolism (HCC) PAST SURGICAL HISTORY Procedure Laterality Date APPENDECTOMY SNGL x2 TONSILLECTOMY HX Social History Tobacco Use Smoking status: Former Types: Cigarettes Smokeless tobacco: Never Substance Use Topics Alcohol use: Never Comment: rare-wine Drug use: No No family history on file. Review of Systems Lab and Test Review: Results for orders placed or performed in visit on 04/29/23 COMP METABOLIC PANEL Result Value Ref Range Protein, Total 7.1 6.3 - 8.0 g/dL Albumin 4.5 3.9 - 4.9 g/dL Calcium, Total 9.5 8.5 - 10.2 mg/dL Bilirubin, Total 0.4 0.2 - 1.3 mg/dL Alkaline Phosphatase 83 34 - 123 U/L AST 12 (L) 13 - 35 U/L ALT 20 7 - 38 U/L Glucose 116 (H) 74 - 99 mg/dL BUN 8 7 - 21 mg/dL Creatinine 0.86 0.58 - 0.96 mg/dL Sodium 137 136 - 144 mmol/L Potassium 3.6 (L) 3.7 - 5.1 mmol/L Chloride 109 (H) 97 - 105 mmol/L CO2 16 (L) 22 - 30 mmol/L Anion Gap 12 9 - 18 mmol/L Estimated Glomerular Filtration Rate 93 >=60 mL/min/1.73m Outside Data/Labs: Subjective Patient-Entered Data: 12/24/23 - GENERAL NEUROLOGY SCORES PROMIS 10 01/17/2023 04/29/2023 12/24/2023 In general, would you say your health is: Good Good - In general, would you say your quality of life is: Good Very good - In general, how would you rate your physical health? Fair Good - In general, how would you rate your mental health, including your mood and your ability to think? Good Very good - In general, how would you rate your satisfaction with your social activities and relationships? Excellent Very good - To what extent are you able to carry out your everyday physical activities such as walking, climbing stairs, carrying groceries, or moving a chair? Completely Completely - In general, please rate how well you carry out your usual social activities and roles. (This includes activities at home, at work and in your community, and responsibilities as a parent, child, spouse, employee, friend, etc.) Very good Excellent - How would you rate your pain on average? 4 3 - How would you rate your fatigue on average? Mild Mild - How often have you been bothered by emotional problems such as feeling anxious, depressed or irritable? Never Never - PROMIS Adult Short Form-Global Health Score (Physical) 44.9 (Good) 50.8 (Very Good) Incomplete PROMIS Adult Short Form-Global Health Score (Mental) 53.3 (Very Good) 56 (Excellent) Incomplete Depression Screening 06/27/2017 10/28/2019 09/02/2022 PHQ-2 Score - 0 0 ANTWAN-2 Total Score 0 - - SLEEP APNEA SCORE 02/21/2023 Probability of moderate-severe sleep apnea (%) SAPS V2 13 (Sleep study not recommended) No flowsheet data found. No flowsheet data found. I spent a total of 25 minutes on the date of the service which included preparing to see the patient, [id number] patient care, completing clinical documentation, obtaining and/or reviewing separately obtained history, performing a medically appropriate examination, counseling and educating the patient/family/caregiver, and ordering medications, tests, or procedures. Naomie Townsend PA-C documented in this encounter [facility] 12-12-2023 Note HNO ID: [id number] Author: MOHINI CISNEROS JR, MD Service: ? Author Type: Physician Type: Progress Notes Filed: 12/12/2023 17:32 Note Text: ESTABLISHED PATIENT VISIT CHIEF COMPLAINT: Follow Up HISTORY OF PRESENT ILLNESS: Stephanie Dickey is a 28 year old female, BMI 38.75 kg/m2 with a PMH significant for and per last office visit note of 09/09/23 of Don Townsend PA: 1. IIH (idiopathic intracranial hypertension) - ICD9: 348.2, ICD10: G93.2 (primary diagnosis) 2. Obstructive sleep apnea - ICD9: 327.23, ICD10: G47.33 3. Headache, unspecified headache type - ICD9: 784.0, ICD10: R51.9 4. Migraine without aura, intractable, without status migrainosus - ICD9: 346.11, ICD10: G43.019 Patient with significant worsening of her headaches over the last month or so, was only having 1 headache a week at last appointment in April and is now having a once daily headaches. Described as a pressure sensation that starts at the back of the head and wraps around to the front of the head, no associated symptoms other than neck pain. Notes that she did lose 25 pounds since last appointment but has not had her eye exam since and has not follow-up with her line installer trolley. Is compliant with her Diamox and topiramate without any side effects that other than occasional paresthesias. Notes that her headaches are not as bad as when she was initially diagnosed with IIH, but she is experiencing some blue flashes of light that she had when she was first diagnosed. No loss of vision, no tunnel vision, no dulled vision. We did discuss physical therapy at last appointment, but patient states she did not have time to do this. On my exam there is no evidence of papilledema, but this is limited. We will have patient follow-up with her eye doctor within the next week or so or go to the emergency department should she experience any vision changes or vision loss. Patient agrees and understands. Regarding treatment, patient tolerating Topamax well, no history of kidney stones. We will increase Topamax to 75 mg a day up from 50 mg. Discussed common side effects and patient is amenable. We will have her continue to take Diamox as well. Regarding abortive therapy, as there is likely a muscular component to her headaches we will try muscle relaxer, Flexeril 5 mg to take as needed. Patient has tried this medication in the past and tolerated it well. Discussed not driving after using this and discussed not mixing with alcohol and patient agrees. Patient also endorsing signs and symptoms of sleep apnea, has narrow airway on my exam. Many of her headaches do start in the morning, concerning for obstructive sleep apnea. We will order home sleep study. Patient agreeable to treatment plan of care at this time, all questions were answered. Patient to follow-up with Dr. Cisneros in 3 months as planned. Plan: All options for treatment discussed. Preventative: Increase topiramate to 75 mg a day, continue Diamox 500 mg twice daily Abortive: Flexeril, Ubrelvy HSAT has not yet been completed. Optometry eval on 10/14/23 per report: 1. IIH (idiopathic intracranial hypertension) Mild fullness nasal both eyes No change in OCT No obvious edema No changes in vision Fundus Exam Right Left Disc Mild fullness nasally and superiorly Mild fullness nasally C/D Ratio 0.15 0.1 Macula Normal Normal Vessels Normal Normal Periphery Normal Normal Pt with COVID on 11/03/23 - states exacerbation of headaches. States the Flexeril resulted in laughing incontinece and did not help the headaches. Ubrelvy not helping. Headaches currently 4 days per week. Feels like pressure and general. Feels crushing. No photophobia. Changes in position make difference. If bends over and stands up headache worse. If lies down get better. No vision changes, specifically no diplopia, loss or tunnel vision. No clear provoking factor on days of headache. No associated nausea. Will drink a bunch of coffee and will eventually go away. Longest headache 2 days. No pain behind eyes or with eye movements. LP in 02/2023: Diagnostic LP Details: Under fluoroscopic guidance, the needle was carefully advanced into the lumbar subarachnoid space with location confirmed by free flowing CSF return and lateral radiograph. Opening pressure was recorded at 26 cm H2O Diagnostic Volume: 20 mL of CSF was withdrawn and forwarded to the lab for analysis. CSF Color: Clear [place] better until 07/2023. Lost 35 pounds in last year. Sleeping better at night. No snoring. REVIEW OF SYSTEMS GENERAL:No weight loss, malaise or fevers. HEENTNo changes in hearing or vision, no nose bleeds or other nasal problems NECK:Negative for lumps, goiter, pain and significant neck swelling RESPIRATORY: Negative for cough, wheezing or shortness of breath. CARDIOVASCULAR: Negative for chest pain, leg swelling or palpitations. GASTROINTESTINAL: Negative for abdominal discomfort, blood in stools or (more content not included)... [facility] 12-12-2023 Instructions Mohini Cisneros Jr., MD - 12/12/2023 5:06 PM EST - Continue Topamax 75mg at night. - Decrease Diamox to 500mg in the morning only. Please contact us in approximately 2 weeks to report if headaches are improving or sooner if they were be worse of if any visual changes. documented in this encounter [facility] 12-12-2023 History of Presen t illness Narrative ESTABLISHED PATIENT VISIT CHIEF COMPLAINT: Follow Up HISTORY OF PRESENT ILLNESS: Stephanie Dickey is a 28 year old female, BMI 38.75 kg/m2 with a PMH significant for and per last office visit note of 09/09/23 of Don Townsend PA: 1. IIH (idiopathic intracranial hypertension) - ICD9: 348.2, ICD10: G93.2 (primary diagnosis) 2. Obstructive sleep apnea - ICD9: 327.23, ICD10: G47.33 3. Headache, unspecified headache type - ICD9: 784.0, ICD10: R51.9 4. Migraine without aura, intractable, without status migrainosus - ICD9: 346.11, ICD10: G43.019 Patient with significant worsening of her headaches over the last month or so, was only having 1 headache a week at last appointment in April and is now having a once daily headaches. Described as a pressure sensation that starts at the back of the head and wraps around to the front of the head, no associated symptoms other than neck pain. Notes that she did lose 25 pounds since last appointment but has not had her eye exam since and has not follow-up with her line installer trolley. Is compliant with her Diamox and topiramate without any side effects that other than occasional paresthesias. Notes that her headaches are not as bad as when she was initially diagnosed with IIH, but she is experiencing some blue flashes of light that she had when she was first diagnosed. No loss of vision, no tunnel vision, no dulled vision. We did discuss physical therapy at last appointment, but patient states she did not have time to do this. On my exam there is no evidence of papilledema, but this is limited. We will have patient follow-up with her eye doctor within the next week or so or go to the emergency department should she experience any vision changes or vision loss. Patient agrees and understands. Regarding treatment, patient tolerating Topamax well, no history of kidney stones. We will increase Topamax to 75 mg a day up from 50 mg. Discussed common side effects and patient is amenable. We will have her continue to take Diamox as well. Regarding abortive therapy, as there is likely a muscular component to her headaches we will try muscle relaxer, Flexeril 5 mg to take as needed. Patient has tried this medication in the past and tolerated it well. Discussed not driving after using this and discussed not mixing with alcohol and patient agrees. Patient also endorsing signs and symptoms of sleep apnea, has narrow airway on my exam. Many of her headaches do start in the morning, concerning for obstructive sleep apnea. We will order home sleep study. Patient agreeable to treatment plan of care at this time, all questions were answered. Patient to follow-up with Dr. Cisneros in 3 months as planned. Plan: All options for treatment discussed. Preventative: Increase topiramate to 75 mg a day, continue Diamox 500 mg twice daily Abortive: Flexeril, Ubrelvy HSAT has not yet been completed. Optometry eval on 10/14/23 per report: 1. IIH (idiopathic intracranial hypertension) Mild fullness nasal both eyes No change in OCT No obvious edema No changes in vision Fundus Exam Right Left Disc Mild fullness nasally and superiorly Mild fullness nasally C/D Ratio 0.15 0.1 Macula Normal Normal Vessels Normal Normal Periphery Normal Normal Pt with COVID on 11/03/23 - states exacerbation of headaches. States the Flexeril resulted in laughing incontinece and did not help the headaches. Ubrelvy not helping. Headaches currently 4 days per week. Feels like pressure and general. Feels crushing. No photophobia. Changes in position make difference. If bends over and stands up headache worse. If lies down get better. No vision changes, specifically no diplopia, loss or tunnel vision. No clear provoking factor on days of headache. No associated nausea. Will drink a bunch of coffee and will eventually go away. Longest headache 2 days. No pain behind eyes or with eye movements. LP in 02/2023: Diagnostic LP Details: Under fluoroscopic guidance, the needle was carefully advanced into the lumbar subarachnoid space with location confirmed by free flowing CSF return and lateral radiograph. Opening pressure was recorded at 26 cm H2O Diagnostic Volume: 20 mL of CSF was withdrawn and forwarded to the lab for analysis. CSF Color: Clear [place] better until 07/2023. Lost 35 pounds in last year. Sleeping better at night. No snoring. REVIEW OF SYSTEMS GENERAL:No weight loss, malaise or fevers. HEENTNo changes in hearing or vision, no nose bleeds or other nasal problems NECK:Negative for lumps, goiter, pain and significant neck swelling RESPIRATORY: Negative for cough, wheezing or shortness of breath. CARDIOVASCULAR: Negative for chest pain, leg swelling or palpitations. GASTROINTESTINAL: Negative for abdominal discomfort, blood in stools or black stools or change in bowel habits GENITOURINARY: No history of dysuria, frequency or incontinence MUSCULOSKELETAL: Negative for joint pain or swelling, back pain or muscle pain. NEUROLOGIC:Negative for focal numbness or weakness, and dizziness or syncope, vision changes, speech/languag changes - EXCEPT that as per HPI above. LAB/IMAGING: Those performed since patient's last visit have been reviewed. WBC (k/uL) Date Value 10/17/2020 12.75 (H) RBC (m/uL) Date Value 10/17/2020 5.35 (H) Hemoglobin (g/dL) Date Value 10/17/2020 15.0 Hematocrit (%) Date Value 10/17/2020 45.6 MCV (fL) Date Value 10/17/2020 85.2 MCH (pG) Date Value 10/17/2020 28.0 MCHC (g/dL) Date Value 10/17/2020 32.9 RDW-CV (%) Date Value 10/17/2020 12.8 Platelet Count (k/uL) Date Value 10/17/2020 459 (H) MPV (fL) Date Value 10/17/2020 10.9 Glucose (mg/dL) Date Value 04/29/2023 116 (H) BUN (mg/dL) Date Value 04/29/2023 8 Creatinine (mg/dL) Date Value 04/29/2023 0.86 Sodium (mmol/L) Date Value 04/29/2023 137 Potassium (mmol/L) Date Value 04/29/2023 3.6 (L) Chloride (mmol/L) Date Value 04/29/2023 109 (H) CO2 (mmol/L) Date Value 04/29/2023 16 (L) Protein, Total (g/dL) Date Value 04/29/2023 7.1 Albumin (g/dL) Date Value 04/29/2023 4.5 Calcium, Total (mg/dL) Date Value 04/29/2023 9.5 Alkaline Phosphatase (U/L) Date Value 04/29/2023 83 Bilirubin, Total (mg/dL) Date Value 04/29/2023 0.4 AST (U/L) Date Value 04/29/2023 12 (L) ALT (U/L) Date Value 04/29/2023 20 LAURITA (no units) Date Value 02/21/2023 Negative MEDICATIONS: topiramate (TOPAMAX) 25 mg tablet Take 3 tablets by mouth daily at bedtime. acetaZOLAMIDE SR (DIAMOX SEQUELS) 500 mg capsule Take 1 capsule by mouth two times a day. ubrogepant (UBRELVY) 100 mg tablet Take 1 tablet by mouth as needed. HISTORIES PAST MEDICAL HISTORY Diagnosis Date Anxiety Asthma Chronic migraine Depression DVT (deep venous thrombosis) (HCC) Pseudotumor cerebri Seeing optho Pulmonary embolism (HCC) SOCIAL HISTORY Social History Tobacco Use Smoking status: Former Types: Cigarettes Smokeless tobacco: Never Substance Use Topics Alcohol use: Never Comment: rare-wine Drug use: No PHYSICAL EXAMINATION BP 130/78 Pulse (!) 148 Resp 16 Wt 90.7 kg (200 lb) LMP 03/17/2017 (Approximate) SpO2 99% BMI 38.75 kg/m GENERAL EXAM: General appearance: NAD, pleasant. HEENT: NC/AT, nasal congestion absent, no oral lesions, membranes moist. NECK: ROM nml\. Lungs: CTA bilaterally. CV: RRR nl S1, S2 Extr: No cyanosis, clubbing or edema. Skin: Cool to touch. NEUROLOGICAL EXAM: General: Awake, alert, oriented x3 (person,place,time), speech fluent, no dysarthria; comprehension, naming, repetition intact. CN: PERRL, fundi with no definite evidence of papilledema, EOMI and without nystagmus, VFF to confrontation, facial sensation and strength are normal and symmetric, hearing is intact to finger rub bilaterally, palate and tongue movements are intact and symmetric. SCM and trapezius strength normal. Motor: Normal tone, bulk and strength (5/5) bilaterally (throughout extremities x4). Coordination: FNF, ISMAEL, HTS intact. No tremors. Sensation: Light touch intact throughout. No evidence of neglect. Gait: Stable with normal stride and arm swing. Assessment and Plan: ASSESSMENT/PLAN: 1. IIH (idiopathic intracranial hypertension) - ICD9: 348.2, ICD10: G93.2 (primary diagnosis) 2. Obstructive sleep apnea - ICD9: 327.23, ICD10: G47.33 3. Class 2 obesity with body mass index (BMI) of 38.0 to 38.9 in adult, unspecified obesity type, unspecified whether serious comorbidity present - ICD9: 278.00, V85.38, ICD10: E66.9, Z68.38 Patient with known history of IIH, that responded to therapeutic LP earlier this year. Workup was otherwise unremarkable. Was doing quite well on Diamox and low dose of Topamax until 07/2023 when headaches increased from couple days per month to up to 4 days per week. Cause of change uncertain and pt has not responded to either treatment for migraines or tension headaches thus far. Neuro exam remains non focal and no reports of significant papilledema even during dilated optometry evaluations. Significant to history is that patient did lose significant amount of weight at time of worsening of headaches. In addition, headaches are worse when standing and improve when lying (when present) and can respond to caffeine. Thus question with weight change, the II Hypertension we were treating now is becoming II Hypotension due to medications. D/w pt, and will try first to reduce the dose of Diamox to see if any improvement (decrease from 500mg BID to daily). For now will continue Topamax. Pt will track headaches over the next 2 weeks and if improving, then possibly headaches were over treated following weight loss. If headaches were to worsen, the pt will contact us immediately and will increase Diamox back to 500mg BID and consider repeat diagnostic/therapeutic LP. Pt agrees with plan. In meantime, will also again request HSAT as possible underlying TJ (risk factors of obesity and crowded airway) may contribute to headaches. Pt agrees with plan. Mohini Cisneros MD I spent a total of 35 minutes on the date of the service which included preparing to see the patient, [id number] patient care, completing clinical documentation, obtaining and/or reviewing separately obtained history, performing a medically appropriate examination, counseling and educating the patient/family/caregiver, ordering medications, tests, or procedures, and communicating results to the patient/family/caregiver. documented in this encounter [facility] 10-17-2023 Miscellaneous Notes Called patient and informed her of normal visual field testing. Will follow-up in 6 months as planned. Patient completed her VF at the [place] office today. The results have been uploaded to [employer] forum. She is requesting a call from you in regards to what your findings are. Please advise BRISA Ribeiro documented in this encounter [facility] 10-14-2023 Note HNO ID: [id number] Author: Joana Giordano OD Service: ? Author Type: ELECTRONICS INSPECTOR Type: Progress Notes Filed: 10/14/2023 10:51 AM Note Text: 1. IIH (idiopathic intracranial hypertension) Mild fullness nasal both eyes No change in OCT No obvious edema No changes in vision 2. Regular astigmatism of both eyes Finalized spec rx Urged continued follow-up with Dr. Cisneros Patient scheduled to have 24-2 done in [place] this week to make sure no changes evident Follow-up with me/Augusto in 6 months for dilation and OCT nerve pending normal 24-2 Joana Giordano OD October 14, 2023 10:49 AM [facility] 10-14-2023 Miscellaneous Notes Addended by: JOANA GIORDANO on: 10/14/2023 11:22 AM Modules accepted: Orders documented in this encounter [facility] 10-14-2023 History of Presen t illness Narrative 1. IIH (idiopathic intracranial hypertension) Mild fullness nasal both eyes No change in OCT No obvious edema No changes in vision 2. Regular astigmatism of both eyes Finalized spec rx Urged continued follow-up with Dr. Cisneros Patient scheduled to have 24-2 done in [place] this week to make sure no changes evident Follow-up with me/Augusto in 6 months for dilation and OCT nerve pending normal 24-2 Joana Giordano OD October 14, 2023 10:49 AM documented in this encounter [facility] 09-09-2023 Note HNO ID: [id number] Author: Lo Kingston LPN Service: ? Author Type: LICENSED NURSE Type: Progress Notes Filed: 09/09/2023 3:24 PM Note Text: There is no data to display for this encounter [facility] 09-09-2023 Note HNO ID: [id number] Author: Naomie Townsend PA-C Service: ? Author Type: Physician Top Lift Trimmer Type: Progress Notes Filed: 09/09/2023 3:24 PM Note Text: [facility] Follow up CC: Headache Follow up Last Visit: 04/29/23 Assessment and Plan: ASSESSMENT/PLAN: 1. IIH (idiopathic intracranial hypertension) - ICD9: 348.2, ICD10: G93.2 (primary diagnosis) 2. Headache, unspecified headache type - ICD9: 784.0, ICD10: R51.9 3. Migraine without aura, intractable, without status migrainosus - ICD9: 346.11, ICD10: G43.019 Patient with significant improvement after LP as well as Topamax 50 mg. Notes that she gets only occasional mild headaches, no migrainous features, notes severe pressure. Notes that before she was having significant pressure where she would need to put a towel around her neck in order to brace her head up. No vision changes, mild side effects with medications but tolerable. Has eye exam scheduled for follow-up after LP next week. Patient encouraged to keep this appointment. No new symptoms, patient doing very well and is happy with where she is at. We will not make any medication adjustments, but if headaches do persist may consider increasing Topamax. Will get CMP due to chronic medication use. 4. Chronic tension-type headache, intractable - ICD9: 339.12, ICD10: G44.221 5. Neck pain - ICD9: 723.1, ICD10: M54.2 Patient still reporting 1-2 headaches a week lasting a few hours, consistent with a bandlike mild pain around the head. No associated symptom with this, does have mild neck pain with this. Likely tension headache, will refer to physical therapy as this may be beneficial. Should this not be helpful, may consider either increasing Topamax or starting a muscle relaxer. Patient agreeable to this plan. No red flag signs or symptoms, no change or worsening symptoms that would warrant additional imaging at this time. Patient agreeable to treatment plan at this time, all questions answered. Patient to follow-up with Dr. Cisneros in 3 months. Naomie Townsend PA-C Today: Patient is here for headache/migraine follow up. Last seen 04/29/23 for headaches, was referred to the headache department but was scheduled with Dr. Cisneros and then followed up with myself with instructions to continue following up with Dr. Cisneros or headache clinic. At last appointment she noted significant improvement in her headaches on Topiramate 50mg and Diamox 500mg bid. Did refer to PT as well as she was describing band like headaches. Since last visit headaches have worsened. Started to worsen in July, nothing changed at that time other than her being off work right now and her injuring her knee. Notes that since last appointment she has lost 25 pounds as well with no significant improvement in her headaches from this. Headaches are to the back of the head and radiate around the head, bandlike without any migrainous symptoms or other symptoms associated with it other than neck pain. Tolerating the Topamax well without any side effects, no history of kidney stones. Has not seen an eye doctor since before March of this year, denies any vision loss or blurred vision, but does note that she will get occasional blue dots that flashing her vision. This is not associate with any headache. No dulled vision or pain with extraocular movements. Headaches were not worsening when lying flat, no significant worsening with Valsalva. Notes that she is drinking plenty of water throughout the day. Taking [id number] medications a few times a week without any significant improvement. Current Headache treatment Preventative: Diamox and topiramte Abortive: Ubrelvy, ibuprofen Medications effective? no # of doses of abortive medications per month: almost daily Total headache days per month: 20 headaches a month Total headache attacks per month: 20 headaches a month Headache free days: Yes Duration of attacks: 4-all day Severity of headaches? 6-05/19 Location: base of the head and forehead. Aura: None Accompanying symptoms: neck pain hard to talk. Quality:pressure. Worse with activity: Yes Pain today: 4/10 Triggers: none. Prodrome:none. Tobacco Use: No. Alcohol Use: No Caffeine:Yes few cups of coffee Prior Therapies Topiramate- in highschool Elavil- no help Metoprolol Sumatriptan no effect Another triptan no effect Flexeril Diamox Ubrelvy The patient's prior records were reviewed including and lab testing, imaging, and procedures done since their last visit with me. Review of symptoms including constitutional, eyes, ENT, neck, respiratory, cardiovascular, GI, , musculoskeletal, hematologic, oncologic, endocrine, and psychiatric categories is unchanged. No new details in the family history or social history were offered by the patient. PAST MEDICAL HISTORY Diagnosis Date Anxiety Asthma Chronic migraine (more content not included)... [facility] 09-09-2023 Instructions Naomie Townsend PA-C - 09/09/2023 2:59 PM EDT Increase topiramate to 75mg at night, continue diamox Flexeril 5mg at night Home sleep study Follow up with eye doctor within the next week Follow up with Dr. Cisneros within the next three months documented in this encounter [facility] 09-09-2023 History of Presen t illness Narrative There is no data to display for this encounter Images from the original note were not included. [facility] Follow up CC: Headache Follow up Last Visit: 04/29/23 Assessment and Plan: ASSESSMENT/PLAN: 1. IIH (idiopathic intracranial hypertension) - ICD9: 348.2, ICD10: G93.2 (primary diagnosis) 2. Headache, unspecified headache type - ICD9: 784.0, ICD10: R51.9 3. Migraine without aura, intractable, without status migrainosus - ICD9: 346.11, ICD10: G43.019 Patient with significant improvement after LP as well as Topamax 50 mg. Notes that she gets only occasional mild headaches, no migrainous features, notes severe pressure. Notes that before she was having significant pressure where she would need to put a towel around her neck in order to brace her head up. No vision changes, mild side effects with medications but tolerable. Has eye exam scheduled for follow-up after LP next week. Patient encouraged to keep this appointment. No new symptoms, patient doing very well and is happy with where she is at. We will not make any medication adjustments, but if headaches do persist may consider increasing Topamax. Will get CMP due to chronic medication use. 4. Chronic tension-type headache, intractable - ICD9: 339.12, ICD10: G44.221 5. Neck pain - ICD9: 723.1, ICD10: M54.2 Patient still reporting 1-2 headaches a week lasting a few hours, consistent with a bandlike mild pain around the head. No associated symptom with this, does have mild neck pain with this. Likely tension headache, will refer to physical therapy as this may be beneficial. Should this not be helpful, may consider either increasing Topamax or starting a muscle relaxer. Patient agreeable to this plan. No red flag signs or symptoms, no change or worsening symptoms that would warrant additional imaging at this time. Patient agreeable to treatment plan at this time, all questions answered. Patient to follow-up with Dr. Cisneros in 3 months. Naomie Townsend PA-C Today: Patient is here for headache/migraine follow up. Last seen 04/29/23 for headaches, was referred to the headache department but was scheduled with Dr. Cisneros and then followed up with myself with instructions to continue following up with Dr. Cisneros or headache clinic. At last appointment she noted significant improvement in her headaches on Topiramate 50mg and Diamox 500mg bid. Did refer to PT as well as she was describing band like headaches. Since last visit headaches have worsened. Started to worsen in July, nothing changed at that time other than her being off work right now and her injuring her knee. Notes that since last appointment she has lost 25 pounds as well with no significant improvement in her headaches from this. Headaches are to the back of the head and radiate around the head, bandlike without any migrainous symptoms or other symptoms associated with it other than neck pain. Tolerating the Topamax well without any side effects, no history of kidney stones. Has not seen an eye doctor since before March of this year, denies any vision loss or blurred vision, but does note that she will get occasional blue dots that flashing her vision. This is not associate with any headache. No dulled vision or pain with extraocular movements. Headaches were not worsening when lying flat, no significant worsening with Valsalva. Notes that she is drinking plenty of water throughout the day. Taking [id number] medications a few times a week without any significant improvement. Current Headache treatment Preventative: Diamox and topiramte Abortive: Ubrelvy, ibuprofen Medications effective? no # of doses of abortive medications per month: almost daily Total headache days per month: 20 headaches a month Total headache attacks per month: 20 headaches a month Headache free days: Yes Duration of attacks: 4-all day Severity of headaches? 6-05/19 Location: base of the head and forehead. Aura: None Accompanying symptoms: neck pain hard to talk. Quality:pressure. Worse with activity: Yes Pain today: 10 Triggers: none. Prodrome:none. Tobacco Use: No. Alcohol Use: No Caffeine:Yes few cups of coffee Prior Therapies Topiramate- in highschool Elavil- no help Metoprolol Sumatriptan no effect Another triptan no effect Flexeril Diamox Ubrelvy The patient's prior records were reviewed including and lab testing, imaging, and procedures done since their last visit with me. Review of symptoms including constitutional, eyes, ENT, neck, respiratory, cardiovascular, GI, , musculoskeletal, hematologic, oncologic, endocrine, and psychiatric categories is unchanged. No new details in the family history or social history were offered by the patient. PAST MEDICAL HISTORY Diagnosis Date Anxiety Asthma Chronic migraine Depression DVT (deep venous thrombosis) (HCC) Pseudotumor cerebri Seeing optho Pulmonary embolism (HCC) PAST SURGICAL HISTORY Procedure Laterality Date APPENDECTOMY SNGL x2 TONSILLECTOMY HX ALLERGIES Allergen Reactions Clindamycin Swelling, Itching, Other: See Comments Facial swelling, flushed Current Medications: acetaZOLAMIDE SR (DIAMOX SEQUELS) 500 mg capsule Take 1 capsule by mouth twice daily. ubrogepant (UBRELVY) 100 mg tablet Take 1 tablet by mouth as needed. cyclobenzaprine (FLEXERIL) 5 mg tablet Take 1 tablet by mouth daily at bedtime. topiramate (TOPAMAX) 25 mg tablet Take 3 tablets by mouth daily at bedtime. Studies to Review: No New Health Issues: No New Social History: No New Family History: No REVIEW OF SYSTEMS: Sleep: Frequent awakenings, Sleep apnea, and Snoring, Mood: normal, Energy: Normal - stable, Stress: Normal GENERAL:No weight loss, malaise or fevers. HEENT:no changes to hearing or vision NECK:negative for neck pain, swelling. RESPIRATORY: Negative for cough, wheezing or shortness of breath. CARDIOVASCULAR: Negative for chest pain, leg swelling or palpitations. GASTROINTESTINAL: Negative for abdominal discomfort, blood in stools or black stools or change in bowel habits GENITOURINARY: No history of dysuria, frequency or incontinence MUSKULOSKELETAL: Negative for joint pain or swelling, back pain or muscle pain. SKIN:Negative for lesions, rash, and itching. HEMATOLOGIC/LYMPHATIC/IMMUNOLOGI C:Negative for prolonged bleeding, bruising easily or swollen nodes. ENDOCRINE: Negative for cold or heat intolerance, polyuria, polydipsia NEUROLOGIC:See HPI PHYSICAL EXAMINATION: BP 125/84 Pulse 72 Resp 18 Wt 94.3 kg (208 lb) LMP 03/17/2017 (Approximate) SpO2 100% BMI 40.30 kg/m General: well appearing, in no acute distress, alert, HEENT: Normocephalic/atraumatic., Skin: Color, texture, turgor normal. No rashes or lesions, Lungs: breathing comfortably, Neurological Examination: Cognition: The patient is alert and oriented times three Lucid and organized in conversation Able to tell detailed medical hx Speech is Normal in fluency volume and clarity Content and Syntax: Normal Comprehension: Normal, able to follow several step commands Cranial Nerves: Pupils are equal and reactive to light. Pupils normal in size Fundoscopic exam: Normal Extraocular movements are grossly intact Good saccades and pursuits No nystagmus Hearing intact Good upgaze Visual heard are full to confrontation. Facial, motor and sensory exam is symmetric Equal v1,V2, V3 Tongue is in midline. No tongue fasciculation. Palate is upgoing bilaterally SCM and trapezius are full. Shoulder shrug intact Normal tone and strength. Normal coordination. DTRs are intact and symmetric bilaterally. Normal gait. Impression: ASSESSMENT/PLAN: 1. IIH (idiopathic intracranial hypertension) - ICD9: 348.2, ICD10: G93.2 (primary diagnosis) 2. Obstructive sleep apnea - ICD9: 327.23, ICD10: G47.33 3. Headache, unspecified headache type - ICD9: 784.0, ICD10: R51.9 4. Migraine without aura, intractable, without status migrainosus - ICD9: 346.11, ICD10: G43.019 Patient with significant worsening of her headaches over the last month or so, was only having 1 headache a week at last appointment in April and is now having a once daily headaches. Described as a pressure sensation that starts at the back of the head and wraps around to the front of the head, no associated symptoms other than neck pain. Notes that she did lose 25 pounds since last appointment but has not had her eye exam since and has not follow-up with her line installer trolley. Is compliant with her Diamox and topiramate without any side effects that other than occasional paresthesias. Notes that her headaches are not as bad as when she was initially diagnosed with IIH, but she is experiencing some blue flashes of light that she had when she was first diagnosed. No loss of vision, no tunnel vision, no dulled vision. We did discuss physical therapy at last appointment, but patient states she did not have time to do this. On my exam there is no evidence of papilledema, but this is limited. We will have patient follow-up with her eye doctor within the next week or so or go to the emergency department should she experience any vision changes or vision loss. Patient agrees and understands. Regarding treatment, patient tolerating Topamax well, no history of kidney stones. We will increase Topamax to 75 mg a day up from 50 mg. Discussed common side effects and patient is amenable. We will have her continue to take Diamox as well. Regarding abortive therapy, as there is likely a muscular component to her headaches we will try muscle relaxer, Flexeril 5 mg to take as needed. Patient has tried this medication in the past and tolerated it well. Discussed not driving after using this and discussed not mixing with alcohol and patient agrees. Patient also endorsing signs and symptoms of sleep apnea, has narrow airway on my exam. Many of her headaches do start in the morning, concerning for obstructive sleep apnea. We will order home sleep study. Patient agreeable to treatment plan of care at this time, all questions were answered. Patient to follow-up with Dr. Cisneros in 3 months as planned. Plan: All options for treatment discussed. Preventative: Increase topiramate to 75 mg a day, continue Diamox 500 mg twice daily Abortive: Flexeril, Ubrelvy Follow-up: 3 months I spent a total of 45 minutes on the date of the service which included preparing to see the patient, [id number] patient care, completing clinical documentation, obtaining and/or reviewing separately obtained history, performing a medically appropriate examination, counseling and educating the patient/family/caregiver, and ordering medications, tests, or procedures. Naomie Townsend PA-C General Neurology [address] [place] [address]. [id number] Appointment: [phone] documented in this encounter [facility] 09-08-2023 Miscellaneous Notes TC to pt who states her headaches are increasing and pt thinks she may need another lumbar puncture. Has been following with Dr. Cisneros and needs medication refills at appointment. Lo Kingston LPN Pt does not understand message. Pt reports she has rescheduled twice. Pt is asking for neuro nurse to call her back. Abbey Green LPN TC to pt with no answer, left VM to return call. Pt has appointment tomorrow with Naomie Townsend for IIH. Pt rescheduled incorrectly as consult was placed for center for neuro cheondoism. Pt will need to cancel appointment for tomorrow and reschedule by calling [phone]. Pt will need to see an MD. Lo Kingston LPN documented in this encounter [facility] 09-08-2023 Miscellaneous Notes New consult for headache clinic placed. documented in this encounter [facility] 09-01-2023 Note HNO ID: [id number] Author: Annmarie Hanna APRN.[employer] ACCOUNT ASSISTANT Service: ? Author Type: Nurse Practitioner Type: Progress Notes Filed: 09/01/2023 4:40 PM Note Text: This is a 28 year old female who presents today with: Patient presents with: Recheck HISTORY OF PRESENT ILLNESS: Stephanie Dickey is a 28 year old female. Patient presents with: Recheck Pt scheduled for a follow-up; however, actually here for employer wellness exam. REVIEW OF SYSTEMS GENERAL: No weight loss, malaise or fevers/chills HEENT: + headaches. No changes in hearing or vision. Follows with neuro. NECK: Negative for lumps, goiter, pain and significant neck swelling RESPIRATORY: Negative for cough, hemoptysis, wheezing, dyspnea or shortness of breath CARDIOVASCULAR: Negative for chest pain, leg swelling, orthopnea, or palpitations GI: No nausea, vomiting, or diarrhea/constipation. No hematochezia/melena. No heartburn or reflux symptoms. : No history of dysuria, frequency or incontinence MUSCULOSKELETAL: Negative for joint pain or swelling. Knee improved w/ cortisone injection. SKIN: Negative for lesions, rash, and itching ENDOCRINE: Negative for cold or heat intolerance, polyuria, polydipsia and goiter NEURO: No history of syncope, paralysis, seizures or tremors PAST MEDICAL HISTORY: PAST MEDICAL HISTORY Diagnosis Date Anxiety Asthma Chronic migraine Depression DVT (deep venous thrombosis) (HCC) Pseudotumor cerebri Seeing optho Pulmonary embolism (HCC) PAST SURGICAL HISTORY Procedure Laterality Date APPENDECTOMY SNGL x2 TONSILLECTOMY HX ALLERGIES Clindamycin MEDICATIONS Current Outpatient Medications Medication Sig topiramate (TOPAMAX) 25 mg tablet Take 2 tablets at bedtime. acetaZOLAMIDE SR (DIAMOX SEQUELS) 500 mg capsule Take 1 capsule by mouth twice daily. ubrogepant (UBRELVY) 100 mg tablet Take 1 tablet by mouth as needed. meclizine (ANTIVERT) 25 mg tab Take 1 tablet by mouth every 6 hours as needed (dizziness). ondansetron orally disintegrating (ZOFRAN ODT) 4 mg disintegrating tablet Take 1 tablet by mouth every 8 hours as needed for nausea/vomiting. indomethacin (INDOCIN) 25 mg capsule Take 1 capsule by mouth three times daily. amoxicillin (AMOXIL) 875 mg tablet Take 1 tablet by mouth twice daily. No current facility-administered medications for this visit. No family history on file. Social History Tobacco Use Smoking status: Former Types: Cigarettes Smokeless tobacco: Never Substance Use Topics Alcohol use: Never Comment: rare-wine Drug use: No EXAM: BP 124/82 Pulse 79 Resp 16 Ht 153 cm (5' 0.24 ) Wt 94.3 kg (208 lb) LMP 03/17/2017 (Approximate) SpO2 99% BMI 40.30 kg/m? PHYSICAL EXAM: General Appearance: Well appearing, alert, in no acute distress, well-hydrated, well nourished.. Skin: Skin color, texture, turgor normal, no suspicious rashes or lesions. Head: Normocephalic, no masses, lesions, tenderness or abnormalities. Eyes: Anicteric sclera. Pupils are equally round and reactive to light. Extraocular movements are intact. Ears: External ears normal, canals clear. Oropharynx: Lips, mucosa, and tongue normal, teeth and gums normal, oropharynx normal. Neck: Supple, no adenopathy; thyroid symmetric, normal size, no bruits. Lungs: Lungs clear to auscultation. No wheezing, rhonchi, rales.. Heart: RRR without murmur, gallop, or rubs. No ectopy. Abdomen: Normal abdominal exam, Abdomen soft, non-tender. Bowel sounds normal. No masses, organomegaly. Extremities: No deformities, edema, skin discoloration, clubbing or cyanosis. Good capillary refill. . Neurologic: Gait normal. ASSESSMENT/PLAN: 1. Wellness examination - ICD9: V70.0, ICD10: Z00.00 Healthy exam. - Follow up for annual exam in one year Form complete, copied to scanning, returned to patient. Health Promotion: - Eat healthy -- go to [employer] to get started - Have a yearly physical - Mammogram yearly after age 40 - Get at least 30 minutes of physical activity daily - Get at least 7 to 8 hours of sleep each night - Reach and maintain a healthy weight - Get help to quit or don't start smoking - Limit alcohol use to one drink or less - Do not use illegal drugs or misuse prescription drugs - Wear a helmet when riding a bike and wear protective gear for sports - Wear a seatbelt in cars and not text and drive - Wear sunscreen Discussed treatment plan and patient voices understanding. Patient's questions answered appropriately. Medications and potential side effects were discussed and patient voices understanding. Return to the office as scheduled or as needed for worsening/no improvement. Annmarie Hanna APRN.CNP [facility] 09-01-2023 Instructions Annmarie aHnna APRN.CNP - 09/01/2023 4:35 PM EDT Health Promotion: - Eat healthy -- go to [email or web address] to get started - Have a yearly physical - Mammogram yearly after age 40 - Get at least 30 minutes of physical activity daily - Get at least 7 to 8 hours of sleep each night - Reach and maintain a healthy weight - Get help to quit or don't start smoking - Limit alcohol use to one drink or less - Do not use illegal drugs or misuse prescription drugs - Wear a helmet when riding a bike and wear protective gear for sports - Wear a seatbelt in cars and not text and drive - Wear sunscreen documented in this encounter [facility] 09-01-2023 History of Presen t illness Narrative This is a 28 year old female who presents today with: Patient presents with: Recheck HISTORY OF PRESENT ILLNESS: Stephanie Dickey is a 28 year old female. Patient presents with: Recheck Pt scheduled for a follow-up; however, actually here for employer wellness exam. REVIEW OF SYSTEMS GENERAL: No weight loss, malaise or fevers/chills HEENT: + headaches. No changes in hearing or vision. Follows with neuro. NECK: Negative for lumps, goiter, pain and significant neck swelling RESPIRATORY: Negative for cough, hemoptysis, wheezing, dyspnea or shortness of breath CARDIOVASCULAR: Negative for chest pain, leg swelling, orthopnea, or palpitations GI: No nausea, vomiting, or diarrhea/constipation. No hematochezia/melena. No heartburn or reflux symptoms. : No history of dysuria, frequency or incontinence MUSCULOSKELETAL: Negative for joint pain or swelling. Knee improved w/ cortisone injection. SKIN: Negative for lesions, rash, and itching ENDOCRINE: Negative for cold or heat intolerance, polyuria, polydipsia and goiter NEURO: No history of syncope, paralysis, seizures or tremors PAST MEDICAL HISTORY: PAST MEDICAL HISTORY Diagnosis Date Anxiety Asthma Chronic migraine Depression DVT (deep venous thrombosis) (HCC) Pseudotumor cerebri Seeing optho Pulmonary embolism (HCC) PAST SURGICAL HISTORY Procedure Laterality Date APPENDECTOMY SNGL x2 TONSILLECTOMY HX ALLERGIES Clindamycin MEDICATIONS Current Outpatient Medications Medication Sig topiramate (TOPAMAX) 25 mg tablet Take 2 tablets at bedtime. acetaZOLAMIDE SR (DIAMOX SEQUELS) 500 mg capsule Take 1 capsule by mouth twice daily. ubrogepant (UBRELVY) 100 mg tablet Take 1 tablet by mouth as needed. meclizine (ANTIVERT) 25 mg tab Take 1 tablet by mouth every 6 hours as needed (dizziness). ondansetron orally disintegrating (ZOFRAN ODT) 4 mg disintegrating tablet Take 1 tablet by mouth every 8 hours as needed for nausea/vomiting. indomethacin (INDOCIN) 25 mg capsule Take 1 capsule by mouth three times daily. amoxicillin (AMOXIL) 875 mg tablet Take 1 tablet by mouth twice daily. No current facility-administered medications for this visit. No family history on file. Social History Tobacco Use Smoking status: Former Types: Cigarettes Smokeless tobacco: Never Substance Use Topics Alcohol use: Never Comment: rare-wine Drug use: No EXAM: BP 124/82 Pulse 79 Resp 16 Ht 153 cm (5' 0.24 ) Wt 94.3 kg (208 lb) LMP 03/17/2017 (Approximate) SpO2 99% BMI 40.30 kg/m PHYSICAL EXAM: General Appearance: Well appearing, alert, in no acute distress, well-hydrated, well nourished.. Skin: Skin color, texture, turgor normal, no suspicious rashes or lesions. Head: Normocephalic, no masses, lesions, tenderness or abnormalities. Eyes: Anicteric sclera. Pupils are equally round and reactive to light. Extraocular movements are intact. Ears: External ears normal, canals clear. Oropharynx: Lips, mucosa, and tongue normal, teeth and gums normal, oropharynx normal. Neck: Supple, no adenopathy; thyroid symmetric, normal size, no bruits. Lungs: Lungs clear to auscultation. No wheezing, rhonchi, rales.. Heart: RRR without murmur, gallop, or rubs. No ectopy. Abdomen: Normal abdominal exam, Abdomen soft, non-tender. Bowel sounds normal. No masses, organomegaly. Extremities: No deformities, edema, skin discoloration, clubbing or cyanosis. Good capillary refill. . Neurologic: Gait normal. ASSESSMENT/PLAN: 1. Wellness examination - ICD9: V70.0, ICD10: Z00.00 Healthy exam. - Follow up for annual exam in one year Form complete, copied to scanning, returned to patient. Health Promotion: - Eat healthy -- go to [employer] to get started - Have a yearly physical - Mammogram yearly after age 40 - Get at least 30 minutes of physical activity daily - Get at least 7 to 8 hours of sleep each night - Reach and maintain a healthy weight - Get help to quit or don't start smoking - Limit alcohol use to one drink or less - Do not use illegal drugs or misuse prescription drugs - Wear a helmet when riding a bike and wear protective gear for sports - Wear a seatbelt in cars and not text and drive - Wear sunscreen Discussed treatment plan and patient voices understanding. Patient's questions answered appropriately. Medications and potential side effects were discussed and patient voices understanding. Return to the office as scheduled or as needed for worsening/no improvement. Annmarie Hanna APRN.CHLOÉ documented in this encounter [facility] 07-02-2023 Note HNO ID: [id number] Author: Monique Persaud RT(R) Service: Radiology Author Type: Technologist Type: Progress Notes Filed: 07/02/2023 2:42 PM Note Text: Radiology Service Progress Note PATIENT NAME: Stephanie Dickey DATE OF SERVICE: July 02, 2023 TIME: 2:31 PM PATIENT IDENTITY VERIFICATION COMPLETED USING TWO (2) IDENTIFIERS: Name and Date of confirmed by patient verbally. FALL SCREENING: Has the patient had 2 falls in the last year or 1 fall with injury or currently using an Ambulatory Assistive Device (Walker, Cane, Wheelchair, Crutches, etc.)? No PATIENT GENDER DATA: Female. status: : No status: NO. PATIENT RELEVANT IMPLANT DATA REVIEWED: Yes RADIOLOGY DEPARTMENT: General X-ray: Exam(s) Completed: Lower Extremity X-Ray(s): Knee, AP / Lat / Tunne / Merchant Right and Wt. Bearing PERIPHERAL IV DATA: Not applicable SIGNED BY: RT Josh(R) July 02, 2023 2:31 PM [facility] 07-02-2023 Note HNO ID: [id number] Author: Annmarie Hanna APRN.[employer] ACCOUNT ASSISTANT Service: ? Author Type: Nurse Practitioner Type: Progress Notes Filed: 07/02/2023 5:14 PM Note Text: This is a 28 year old female who presents today with: Patient presents with: Acute Visit: R knee pain/stiffness x1week HISTORY OF PRESENT ILLNESS: Stephanie Dickey is a 28 year old female. Patient presents with: Acute Visit: R knee pain/stiffness x1week Pt states daughter jumped on her and heard her knee pop and it has been popping since. She was standing and daughter jumped towards her and patient twisted with planted foot. Pt states he has been icing, elevating and pain medication, ibuprofen 400mg q8 PRN last dose 07/01 PM Bending makes pain worse 5/10 pain at rest No prior injuries to knee Pt states pain is shooting through legs in front and around the knee caps + locking. May have given out. PAST MEDICAL HISTORY: PAST MEDICAL HISTORY Diagnosis Date Anxiety Asthma Chronic migraine Depression DVT (deep venous thrombosis) (HCC) Pseudotumor cerebri Seeing optho Pulmonary embolism (HCC) PAST SURGICAL HISTORY Procedure Laterality Date APPENDECTOMY SNGL x2 TONSILLECTOMY HX ALLERGIES Clindamycin MEDICATIONS Current Outpatient Medications Medication Sig topiramate (TOPAMAX) 25 mg tablet Take 2 tablets at bedtime. acetaZOLAMIDE SR (DIAMOX SEQUELS) 500 mg capsule Take 1 capsule by mouth twice daily. ubrogepant (UBRELVY) 100 mg tablet Take 1 tablet by mouth as needed. indomethacin (INDOCIN) 25 mg capsule Take 1 capsule by mouth three times daily. amoxicillin (AMOXIL) 875 mg tablet Take 1 tablet by mouth twice daily. meclizine (ANTIVERT) 25 mg tab Take 1 tablet by mouth every 6 hours as needed (dizziness). ondansetron orally disintegrating (ZOFRAN ODT) 4 mg disintegrating tablet Take 1 tablet by mouth every 8 hours as needed for nausea/vomiting. No current facility-administered medications for this visit. No family history on file. Social History Tobacco Use Smoking status: Former Types: Cigarettes Smokeless tobacco: Never Substance Use Topics Alcohol use: Never Comment: rare-wine Drug use: No EXAM: BP 132/86 Pulse 67 Resp 16 LMP 03/17/2017 (Approximate) SpO2 97% PHYSICAL EXAM: General Appearance: Well appearing, alert, in no acute distress, well-hydrated, well nourished.. Skin: Skin color, texture, turgor normal, no suspicious rashes or lesions. Head: Normocephalic, no masses, lesions, tenderness or abnormalities. Eyes: Anicteric sclera. Pupils are equally round and reactive to light. Extraocular movements are intact. . Extremities: No deformities, edema, skin discoloration, clubbing or cyanosis. Good capillary refill. . Neurologic: Gait normal. KNEE:Location: right knee -- inferior and lateral to knee cap -- R>L. Redness: No. Warmth: No. Crepitus: Yes. Effusion: No. Joint line tenderness: Yes. Lateral tenderness: Yes. Medial tenderness: mild -- worse on lateral. . Positive Drawer sign: No. Medial or lateral laxity: No. Brandon's sign: No. ASSESSMENT/PLAN: 1. Right knee injury, initial encounter - ICD9: 959.7, ICD10: S89.91XA Concern for meniscal injury. Will get xray. Start PT. Referral to ortho. Continue nsaids. Ice. Compression. - CONSULT TO ORTHOPAEDICS - CONSULT TO PHYSICAL THERAPY - XR KNEE GENERAL 4V AP BOTH/PA BOTH/LAT/MERC RIGHT Discussed treatment plan and patient voices understanding. Patient's questions answered appropriately. Medications and potential side effects were discussed and patient voices understanding. Return to the office as scheduled or as needed for worsening/no improvement. Annmarie Hanna APRN.CHLOÉ [facility] 07-02-2023 Instructions Annmarie Hanna APRN.CHLOÉ - 07/02/2023 2:21 PM EDT Schedule XRay Schedule Ortho Schedule PT Continue with Rest, Ice, Elevation and Compression Continue with Ibuprofen for pain and anti inflammation management documented in this encounter [facility] 07-02-2023 History of Presen t illness Narrative This is a 28 year old female who presents today with: Patient presents with: Acute Visit: R knee pain/stiffness x1week HISTORY OF PRESENT ILLNESS: Stephanie Dickey is a 28 year old female. Patient presents with: Acute Visit: R knee pain/stiffness x1week Pt states daughter jumped on her and heard her knee pop and it has been popping since. She was standing and daughter jumped towards her and patient twisted with planted foot. Pt states he has been icing, elevating and pain medication, ibuprofen 400mg q8 PRN last dose 07/01 PM Bending makes pain worse 5/10 pain at rest No prior injuries to knee Pt states pain is shooting through legs in front and around the knee caps + locking. May have given out. PAST MEDICAL HISTORY: PAST MEDICAL HISTORY Diagnosis Date Anxiety Asthma Chronic migraine Depression DVT (deep venous thrombosis) (HCC) Pseudotumor cerebri Seeing optho Pulmonary embolism (HCC) PAST SURGICAL HISTORY Procedure Laterality Date APPENDECTOMY SNGL x2 TONSILLECTOMY HX ALLERGIES Clindamycin MEDICATIONS Current Outpatient Medications Medication Sig topiramate (TOPAMAX) 25 mg tablet Take 2 tablets at bedtime. acetaZOLAMIDE SR (DIAMOX SEQUELS) 500 mg capsule Take 1 capsule by mouth twice daily. ubrogepant (UBRELVY) 100 mg tablet Take 1 tablet by mouth as needed. indomethacin (INDOCIN) 25 mg capsule Take 1 capsule by mouth three times daily. amoxicillin (AMOXIL) 875 mg tablet Take 1 tablet by mouth twice daily. meclizine (ANTIVERT) 25 mg tab Take 1 tablet by mouth every 6 hours as needed (dizziness). ondansetron orally disintegrating (ZOFRAN ODT) 4 mg disintegrating tablet Take 1 tablet by mouth every 8 hours as needed for nausea/vomiting. No current facility-administered medications for this visit. No family history on file. Social History Tobacco Use Smoking status: Former Types: Cigarettes Smokeless tobacco: Never Substance Use Topics Alcohol use: Never Comment: rare-wine Drug use: No EXAM: BP 132/86 Pulse 67 Resp 16 LMP 03/17/2017 (Approximate) SpO2 97% PHYSICAL EXAM: General Appearance: Well appearing, alert, in no acute distress, well-hydrated, well nourished.. Skin: Skin color, texture, turgor normal, no suspicious rashes or lesions. Head: Normocephalic, no masses, lesions, tenderness or abnormalities. Eyes: Anicteric sclera. Pupils are equally round and reactive to light. Extraocular movements are intact. . Extremities: No deformities, edema, skin discoloration, clubbing or cyanosis. Good capillary refill. . Neurologic: Gait normal. KNEE:Location: right knee -- inferior and lateral to knee cap -- R>L. Redness: No. Warmth: No. Crepitus: Yes. Effusion: No. Joint line tenderness: Yes. Lateral tenderness: Yes. Medial tenderness: mild -- worse on lateral. . Positive Drawer sign: No. Medial or lateral laxity: No. Brandon's sign: No. ASSESSMENT/PLAN: 1. Right knee injury, initial encounter - ICD9: 959.7, ICD10: S89.91XA Concern for meniscal injury. Will get xray. Start PT. Referral to ortho. Continue nsaids. Ice. Compression. - CONSULT TO ORTHOPAEDICS - CONSULT TO PHYSICAL THERAPY - XR KNEE GENERAL 4V AP BOTH/PA BOTH/LAT/MERC RIGHT Discussed treatment plan and patient voices understanding. Patient's questions answered appropriately. Medications and potential side effects were discussed and patient voices understanding. Return to the office as scheduled or as needed for worsening/no improvement. Annmarie Hanna APRN.[employer] ACCOUNT ASSISTANT documented in this encounter [facility] 04-29-2023 Note HNO ID: [id number] Author: Naomie Townsend PA-C Service: ? Author Type: Physician Top Lift Trimmer Type: Progress Notes Filed: 04/29/2023 12:30 PM Note Text: ESTABLISHED PATIENT VISIT Last visit: 03/19/[address] Cisneros ASSESSMENT/PLAN: 1. IIH (idiopathic intracranial hypertension) - ICD9: 348.2, ICD10: G93.2 Overall, pt headache improved since undergoing therapeutic LP. Note no s/s to suggest CSF leak headache at this time. Will continue to treat as IIH. Unfortunately, no reversible causes of IH identified. Patient would like to try Topamax again, with her not having been on it in approximately 15 years. Discussed contraindications which pt denies (I.e. renal stones). Reviewed SE and ADRs with pt (note mother also present). Will place on Topamax 25mg QHS x1 week then increase to 50mg QHS. Will continue with pt still taking Diamox 500mg BID. Educated on med-med interaction which pt will monitor for poss reactions and encouraged hydration. If stable, and tolerating Topamax, then at time of next visit will try to continue to increase Topamax dose while decreasing Diamox dose at such time. Pt agrees with plan. Follow up 04/29/23 with Don WALSH or susan sarkar. Mohini Cisneros MD CHIEF COMPLAINT: follow up HISTORY OF PRESENT ILLNESS: Stephanie Dickey is a 28 year old female, There were no vitals taken for this visit. with a PMH significant for IIIH, migraine and obesity. Put on topiramate (titrate up to 50mg) over one month ago while also no Diamox as she was still having headaches. Headache was to the top of the head without any associated symptoms, not positional. Noted improvement after LP, opening pressure was 26 mmHg. CSF labs were normal. MRV was normal and MRI read from outside facility showed empty sella. Patient presents for follow-up. She notes that she is feeling significantly better since last appointment, notes mild side effects of Topamax including GI discomfort, decreased appetite and worsening of her paresthesias. The paresthesias is primarily from the Diamox, has had this medication in the past and had the same side effect. Notes that she still getting 1-2 headaches a week that are mild, bandlike across the head and only last for a few hours. Notes that she does have some mild neck pain associated with this. No stated symptoms other than the neck pain including migrainous symptoms. Takes Ubrelvy with mild improvement in her symptoms. No other new changes, no vision changes, no worsening symptoms. Notes that she has an eye doctor appointment scheduled for next week or so. Notes that she does eat a lot of salt, and does not drink much water. Weight has been stable, no weight loss. REVIEW OF SYSTEMS GENERAL:No weight loss, malaise or fevers. HEENT:Negative for frequent or significant headaches, No changes in hearing or vision, no nose bleeds or other nasal problems NECK:Negative for lumps, goiter, pain and significant neck swelling RESPIRATORY: Negative for cough, wheezing or shortness of breath. CARDIOVASCULAR: Negative for chest pain, leg swelling or palpitations. GASTROINTESTINAL: Negative for abdominal discomfort, blood in stools or black stools or change in bowel habits GENITOURINARY: No history of dysuria, frequency or incontinence MUSCULOSKELETAL: Negative for joint pain or swelling, back pain or muscle pain. NEUROLOGIC:Negative for focal numbness or weakness, headaches and dizziness or syncope, vision changes, speech/languag changes - EXCEPT that as per HPI above. SKIN:Negative for lesions, rash, and itching. PSYCHIATRIC: Negative for sleep disturbance, mood disorder and recent psychosocial stressors. HEMATOLOGIC/LYMPHATIC/IMMUNOLOGI C:Negative for prolonged bleeding, bruising easily or swollen nodes. ENDOCRINE: Negative for cold or heat intolerance, polyuria, polydipsia and goiter. The remainder of the ROS was reviewed and is negative. LAB/IMAGING: Those performed since patient's last visit have been reviewed. None since last appointment MEDICATIONS: acetaZOLAMIDE SR (DIAMOX SEQUELS) 500 mg capsule Take 1 capsule by mouth twice daily. topiramate (TOPAMAX) 25 mg tablet Take 1 tablet at bedtime for 1 week and then increase to 2 tablets at bedtime and continue. ubrogepant (UBRELVY) 100 mg tablet Take 1 tablet by mouth as needed. meclizine (ANTIVERT) 25 mg tab Take 1 tablet by mouth every 6 hours as needed (dizziness). ondansetron orally disintegrating (ZOFRAN ODT) 4 mg disintegrating tablet Take 1 tablet by mouth every 8 hours as needed for nausea/vomiting. indomethacin (INDOCIN) 25 mg capsule Take 1 capsule by mouth three times daily. amoxicillin (AMOXIL) 875 mg tablet Take 1 tablet by mouth twice daily. HISTORIES PAST MEDICAL HISTORY Diagnosis Date Anxiety Asthma Chronic migraine Depression DVT (deep venous thrombosis) (HCC) Pseudotumor cerebri Seeing optho Pulmonary embolism (HCC) No family history on file. S (more content not included)... [facility] 04-29-2023 Miscellaneous Notes Addended by: NAOMIE TOWNSEND on: 04/29/2023 12:30 PM Modules accepted: Orders documented in this encounter [facility] 04-29-2023 Instructions Naomie Townsend PA-C - 04/29/2023 11:56 AM EDT Preventative: Continue diamox and topiramate Potential side effects: numbness and tingling, kidney stones (calcium phosphate) word finding difficulties and other cognitive side effects, loss off appetite, change in taste with sodas or reversible glaucoma. . If you develop numbness and tinglng , buy Potassium 99 mg over the counter and use 1 or 2 /day. Abortive: Ubrelvy PT for neck pain Increase water, decrease salt. Weight loss See eye doctor Follow up in three months documented in this encounter [facility] 04-29-2023 History of Presen t illness Narrative ESTABLISHED PATIENT VISIT Last visit: 03/19/[address] Cisneros ASSESSMENT/PLAN: 1. IIH (idiopathic intracranial hypertension) - ICD9: 348.2, ICD10: G93.2 Overall, pt headache improved since undergoing therapeutic LP. Note no s/s to suggest CSF leak headache at this time. Will continue to treat as IIH. Unfortunately, no reversible causes of IH identified. Patient would like to try Topamax again, with her not having been on it in approximately 15 years. Discussed contraindications which pt denies (I.e. renal stones). Reviewed SE and ADRs with pt (note mother also present). Will place on Topamax 25mg QHS x1 week then increase to 50mg QHS. Will continue with pt still taking Diamox 500mg BID. Educated on med-med interaction which pt will monitor for poss reactions and encouraged hydration. If stable, and tolerating Topamax, then at time of next visit will try to continue to increase Topamax dose while decreasing Diamox dose at such time. Pt agrees with plan. Follow up 04/29/23 with Don WALSH or sooner prn. Mohini Cisneros MD CHIEF COMPLAINT: follow up HISTORY OF PRESENT ILLNESS: Stephanie Dickey is a 28 year old female, There were no vitals taken for this visit. with a PMH significant for IIIH, migraine and obesity. Put on topiramate (titrate up to 50mg) over one month ago while also no Diamox as she was still having headaches. Headache was to the top of the head without any associated symptoms, not positional. Noted improvement after LP, opening pressure was 26 mmHg. CSF labs were normal. MRV was normal and MRI read from outside facility showed empty sella. Patient presents for follow-up. She notes that she is feeling significantly better since last appointment, notes mild side effects of Topamax including GI discomfort, decreased appetite and worsening of her paresthesias. The paresthesias is primarily from the Diamox, has had this medication in the past and had the same side effect. Notes that she still getting 1-2 headaches a week that are mild, bandlike across the head and only last for a few hours. Notes that she does have some mild neck pain associated with this. No stated symptoms other than the neck pain including migrainous symptoms. Takes Ubrelvy with mild improvement in her symptoms. No other new changes, no vision changes, no worsening symptoms. Notes that she has an eye doctor appointment scheduled for next week or so. Notes that she does eat a lot of salt, and does not drink much water. Weight has been stable, no weight loss. REVIEW OF SYSTEMS GENERAL:No weight loss, malaise or fevers. HEENT:Negative for frequent or significant headaches, No changes in hearing or vision, no nose bleeds or other nasal problems NECK:Negative for lumps, goiter, pain and significant neck swelling RESPIRATORY: Negative for cough, wheezing or shortness of breath. CARDIOVASCULAR: Negative for chest pain, leg swelling or palpitations. GASTROINTESTINAL: Negative for abdominal discomfort, blood in stools or black stools or change in bowel habits GENITOURINARY: No history of dysuria, frequency or incontinence MUSCULOSKELETAL: Negative for joint pain or swelling, back pain or muscle pain. NEUROLOGIC:Negative for focal numbness or weakness, headaches and dizziness or syncope, vision changes, speech/languag changes - EXCEPT that as per HPI above. SKIN:Negative for lesions, rash, and itching. PSYCHIATRIC: Negative for sleep disturbance, mood disorder and recent psychosocial stressors. HEMATOLOGIC/LYMPHATIC/IMMUNOLOGI C:Negative for prolonged bleeding, bruising easily or swollen nodes. ENDOCRINE: Negative for cold or heat intolerance, polyuria, polydipsia and goiter. The remainder of the ROS was reviewed and is negative. LAB/IMAGING: Those performed since patient's last visit have been reviewed. None since last appointment MEDICATIONS: acetaZOLAMIDE SR (DIAMOX SEQUELS) 500 mg capsule Take 1 capsule by mouth twice daily. topiramate (TOPAMAX) 25 mg tablet Take 1 tablet at bedtime for 1 week and then increase to 2 tablets at bedtime and continue. ubrogepant (UBRELVY) 100 mg tablet Take 1 tablet by mouth as needed. meclizine (ANTIVERT) 25 mg tab Take 1 tablet by mouth every 6 hours as needed (dizziness). ondansetron orally disintegrating (ZOFRAN ODT) 4 mg disintegrating tablet Take 1 tablet by mouth every 8 hours as needed for nausea/vomiting. indomethacin (INDOCIN) 25 mg capsule Take 1 capsule by mouth three times daily. amoxicillin (AMOXIL) 875 mg tablet Take 1 tablet by mouth twice daily. HISTORIES PAST MEDICAL HISTORY Diagnosis Date Anxiety Asthma Chronic migraine Depression DVT (deep venous thrombosis) (HCC) Pseudotumor cerebri Seeing optho Pulmonary embolism (HCC) No family history on file. SOCIAL HISTORY Social History Tobacco Use Smoking status: Former Types: Cigarettes Smokeless tobacco: Never Substance Use Topics Alcohol use: Never Comment: rare-wine Drug use: No PHYSICAL EXAMINATION BP 139/85 Pulse 63 Temp 37.1 C (98.8 F) Resp 16 Wt 104.8 kg (231 lb) LMP 03/17/2017 (Approximate) SpO2 99% BMI 46.66 kg/m GENERAL EXAM: General appearance: NAD, pleasant. HEENT: NC/AT, nasal congestion absent, no oral lesions, membranes moist. NECK: No masses, supple. Lungs: Breathing comfortably Extr: Moves all extremities without difficulty Skin: Cool to touch. No rash. NEUROLOGICAL EXAM: General: Awake, alert, oriented x3 (person,place,time), speech fluent, no dysarthria; comprehension, naming, repetition intact. Short and detention memory intact. CN: PERRL, EOMI and without nystagmus, VFF to confrontation, facial sensation and strength are normal and symmetric, hearing is intact to finger rub bilaterally, palate and tongue movements are intact and symmetric. SCM and trapezius strength normal. Motor: Normal tone, bulk and strength (5/5) bilaterally (throughout extremities x4). Reflexes: 2/4 and symmetric, plantar stimulation is flexor. Coordination: FNF intact. No tremors. Sensation: No evidence of neglect. Gait: Narrow based and stable with normal stride and arm swing. Assessment and Plan: ASSESSMENT/PLAN: 1. IIH (idiopathic intracranial hypertension) - ICD9: 348.2, ICD10: G93.2 (primary diagnosis) 2. Headache, unspecified headache type - ICD9: 784.0, ICD10: R51.9 3. Migraine without aura, intractable, without status migrainosus - ICD9: 346.11, ICD10: G43.019 Patient with significant improvement after LP as well as Topamax 50 mg. Notes that she gets only occasional mild headaches, no migrainous features, notes severe pressure. Notes that before she was having significant pressure where she would need to put a towel around her neck in order to brace her head up. No vision changes, mild side effects with medications but tolerable. Has eye exam scheduled for follow-up after LP next week. Patient encouraged to keep this appointment. No new symptoms, patient doing very well and is happy with where she is at. We will not make any medication adjustments, but if headaches do persist may consider increasing Topamax. Will get CMP due to chronic medication use. 4. Chronic tension-type headache, intractable - ICD9: 339.12, ICD10: G44.221 5. Neck pain - ICD9: 723.1, ICD10: M54.2 Patient still reporting 1-2 headaches a week lasting a few hours, consistent with a bandlike mild pain around the head. No associated symptom with this, does have mild neck pain with this. Likely tension headache, will refer to physical therapy as this may be beneficial. Should this not be helpful, may consider either increasing Topamax or starting a muscle relaxer. Patient agreeable to this plan. No red flag signs or symptoms, no change or worsening symptoms that would warrant additional imaging at this time. Patient agreeable to treatment plan at this time, all questions answered. Patient to follow-up with Dr. Cisneros in 3 months. Naomie Townsend PA-C I spent a total of 25 minutes on the date of the service which included preparing to see the patient, [id number] patient care, completing clinical documentation, obtaining and/or reviewing separately obtained history, performing a medically appropriate examination, counseling and educating the patient/family/caregiver, and ordering medications, tests, or procedures. This document has been created with the use of voice recognition technology. It may contain inaccuracies: (e.g. misspellings, inaccurate syntax or word sense) that have escaped review. documented in this encounter [facility] 03-19-2023 Note HNO ID: [id number] Author: Mohini Cisneros Jr., MD Service: ? Author Type: Physician Type: Progress Notes Filed: 03/19/2023 1:29 PM Note Text: ESTABLISHED PATIENT VISIT CHIEF COMPLAINT: Follow up post LP HISTORY OF PRESENT ILLNESS: Stephanie Dickey is a 28 year old female, with past medical history significant for and per last office visit note of 02/21/23: 1. IIH (idiopathic intracranial hypertension) - ICD9: 348.2, ICD10: G93.2 Patient with headaches that are persistent, diffuse and not responding to treatment as above -- this includes attempted treatment with multiple migraine meds with no influence on headaches but also trial of Diamox 500mg BID with no improvement. Concern up to this point is that patient may have IIH given prior diagnoses per 2 separate LPs per patient and previous responses to Topamax and Diamox. Papilledema not reports by opthalmology, but per pt, they stated her nerves look different . Unfortunately I cannot evaluate pt by fundoscopic exam due to virtual visit. At this time, feel need to further look for IIH as an etiology given this history as well as empty sella reported on MRI brain. Thus, will proceed with LP to evaluate opening and closing pressures (therapeutic) and see if any improvement in symptoms. Will send off basic CSF labs at that time. In meantime, will evaluate for other possible etiologies of IIH including following labs: thyroid, LAURITA with reflex, B12, Lyme. Note pt not on OCP, Vit A, or othe rmeds that could result in IIH. Also pt without history of TJ. Pt will follow up after LP. In meantime pt to continue Diamox 500mg BID. LP was performed on 03/11/23: opening pressure was 26 with closing <15. 20cc CSF removed. CSF labs as well as serum labs above unremarkable. Again MRI and MRV unremarkable per outside rad reports but for reports of empty sella. Pt reports headache improved same day as LP. Describes as a different headache afterwards. Currently on Diamox 500mg BID. Still with headache that is at top of head, with no associated sensitivities. Headache is not having positional influence. REVIEW OF SYSTEMS GENERAL:No weight loss, malaise or fevers. HEENT: No changes in hearing or vision, no nose bleeds or other nasal problems NECK:Negative for lumps, goiter, pain and significant neck swelling RESPIRATORY: Negative for cough, wheezing or shortness of breath. CARDIOVASCULAR: Negative for chest pain, leg swelling or palpitations. GASTROINTESTINAL: Negative for abdominal discomfort, blood in stools or black stools or change in bowel habits GENITOURINARY: No history of dysuria, frequency or incontinence MUSCULOSKELETAL: Negative for joint pain or swelling, back pain or muscle pain. NEUROLOGIC:Negative for focal numbness or weakness, and dizziness or syncope, vision changes, speech/languag changes - EXCEPT that as per HPI above. SKIN:Negative for lesions, rash, and itching. LAB/IMAGING: Those performed since patient's last visit have been reviewed. WBC (k/uL) Date Value 10/17/2020 12.75 (H) RBC (m/uL) Date Value 10/17/2020 5.35 (H) Hemoglobin (g/dL) Date Value 10/17/2020 15.0 Hematocrit (%) Date Value 10/17/2020 45.6 MCV (fL) Date Value 10/17/2020 85.2 MCH (pG) Date Value 10/17/2020 28.0 MCHC (g/dL) Date Value 10/17/2020 32.9 RDW-CV (%) Date Value 10/17/2020 12.8 Platelet Count (k/uL) Date Value 10/17/2020 459 (H) MPV (fL) Date Value 10/17/2020 10.9 Glucose (mg/dL) Date Value 10/17/2020 105 (H) BUN (mg/dL) Date Value 10/17/2020 10 Creatinine (mg/dL) Date Value 10/17/2020 0.58 Sodium (mmol/L) Date Value 10/17/2020 140 Potassium (mmol/L) Date Value 10/17/2020 4.3 Chloride (mmol/L) Date Value 10/17/2020 107 (H) CO2 (mmol/L) Date Value 10/17/2020 22 Protein, Total (g/dL) Date Value 10/17/2020 7.3 Albumin (g/dL) Date Value 10/17/2020 4.6 Calcium (mg/dL) Date Value 10/17/2020 9.3 Alkaline Phosphatase (U/L) Date Value 10/17/2020 95 Bilirubin, Total (mg/dL) Date Value 10/17/2020 <0.2 (L) AST (U/L) Date Value 10/17/2020 16 ALT (U/L) Date Value 10/17/2020 20 LAURITA (no units) Date Value 02/21/2023 Negative MEDICATIONS: acetaZOLAMIDE SR (DIAMOX SEQUELS) 500 mg capsule Take 1 capsule by mouth twice daily. indomethacin (INDOCIN) 25 mg capsule Take 1 capsule by mouth three times daily. amoxicillin (AMOXIL) 875 mg tablet Take 1 tablet by mouth twice daily. ubrogepant (UBRELVY) 100 mg tablet Take 1 tablet by mouth as needed. meclizine (ANTIVERT) 25 mg tab Take 1 tablet by mouth every 6 hours as needed (dizziness). ondansetron orally disintegrating (ZOFRAN ODT) 4 mg disintegrating tablet Take 1 tablet by mouth every 8 hours as needed for nausea/vomiting. HISTORIES PAST MEDICAL HISTORY Diagnosis Date Anxiety Asthma Chronic migraine Depression DVT (deep venous thrombosis) (HCC) Pseudotumor cerebri Seeing op (more content not included)... [facility] 03-19-2023 History of Presen t illness Narrative ESTABLISHED PATIENT VISIT CHIEF COMPLAINT: Follow up post LP HISTORY OF PRESENT ILLNESS: Stephanie Dickey is a 28 year old female, with past medical history significant for and per last office visit note of 02/21/23: 1. IIH (idiopathic intracranial hypertension) - ICD9: 348.2, ICD10: G93.2 Patient with headaches that are persistent, diffuse and not responding to treatment as above -- this includes attempted treatment with multiple migraine meds with no influence on headaches but also trial of Diamox 500mg BID with no improvement. Concern up to this point is that patient may have IIH given prior diagnoses per 2 separate LPs per patient and previous responses to Topamax and Diamox. Papilledema not reports by opthalmology, but per pt, they stated her nerves look different . Unfortunately I cannot evaluate pt by fundoscopic exam due to virtual visit. At this time, feel need to further look for IIH as an etiology given this history as well as empty sella reported on MRI brain. Thus, will proceed with LP to evaluate opening and closing pressures (therapeutic) and see if any improvement in symptoms. Will send off basic CSF labs at that time. In meantime, will evaluate for other possible etiologies of IIH including following labs: thyroid, LAURITA with reflex, B12, Lyme. Note pt not on OCP, Vit A, or othe rmeds that could result in IIH. Also pt without history of TJ. Pt will follow up after LP. In meantime pt to continue Diamox 500mg BID. LP was performed on 03/11/23: opening pressure was 26 with closing <15. 20cc CSF removed. CSF labs as well as serum labs above unremarkable. Again MRI and MRV unremarkable per outside rad reports but for reports of empty sella. Pt reports headache improved same day as LP. Describes as a different headache afterwards. Currently on Diamox 500mg BID. Still with headache that is at top of head, with no associated sensitivities. Headache is not having positional influence. REVIEW OF SYSTEMS GENERAL:No weight loss, malaise or fevers. HEENT: No changes in hearing or vision, no nose bleeds or other nasal problems NECK:Negative for lumps, goiter, pain and significant neck swelling RESPIRATORY: Negative for cough, wheezing or shortness of breath. CARDIOVASCULAR: Negative for chest pain, leg swelling or palpitations. GASTROINTESTINAL: Negative for abdominal discomfort, blood in stools or black stools or change in bowel habits GENITOURINARY: No history of dysuria, frequency or incontinence MUSCULOSKELETAL: Negative for joint pain or swelling, back pain or muscle pain. NEUROLOGIC:Negative for focal numbness or weakness, and dizziness or syncope, vision changes, speech/languag changes - EXCEPT that as per HPI above. SKIN:Negative for lesions, rash, and itching. LAB/IMAGING: Those performed since patient's last visit have been reviewed. WBC (k/uL) Date Value 10/17/2020 12.75 (H) RBC (m/uL) Date Value 10/17/2020 5.35 (H) Hemoglobin (g/dL) Date Value 10/17/2020 15.0 Hematocrit (%) Date Value 10/17/2020 45.6 MCV (fL) Date Value 10/17/2020 85.2 MCH (pG) Date Value 10/17/2020 28.0 MCHC (g/dL) Date Value 10/17/2020 32.9 RDW-CV (%) Date Value 10/17/2020 12.8 Platelet Count (k/uL) Date Value 10/17/2020 459 (H) MPV (fL) Date Value 10/17/2020 10.9 Glucose (mg/dL) Date Value 10/17/2020 105 (H) BUN (mg/dL) Date Value 10/17/2020 10 Creatinine (mg/dL) Date Value 10/17/2020 0.58 Sodium (mmol/L) Date Value 10/17/2020 140 Potassium (mmol/L) Date Value 10/17/2020 4.3 Chloride (mmol/L) Date Value 10/17/2020 107 (H) CO2 (mmol/L) Date Value 10/17/2020 22 Protein, Total (g/dL) Date Value 10/17/2020 7.3 Albumin (g/dL) Date Value 10/17/2020 4.6 Calcium (mg/dL) Date Value 10/17/2020 9.3 Alkaline Phosphatase (U/L) Date Value 10/17/2020 95 Bilirubin, Total (mg/dL) Date Value 10/17/2020 <0.2 (L) AST (U/L) Date Value 10/17/2020 16 ALT (U/L) Date Value 10/17/2020 20 LAURITA (no units) Date Value 02/21/2023 Negative MEDICATIONS: acetaZOLAMIDE SR (DIAMOX SEQUELS) 500 mg capsule Take 1 capsule by mouth twice daily. indomethacin (INDOCIN) 25 mg capsule Take 1 capsule by mouth three times daily. amoxicillin (AMOXIL) 875 mg tablet Take 1 tablet by mouth twice daily. ubrogepant (UBRELVY) 100 mg tablet Take 1 tablet by mouth as needed. meclizine (ANTIVERT) 25 mg tab Take 1 tablet by mouth every 6 hours as needed (dizziness). ondansetron orally disintegrating (ZOFRAN ODT) 4 mg disintegrating tablet Take 1 tablet by mouth every 8 hours as needed for nausea/vomiting. HISTORIES PAST MEDICAL HISTORY Diagnosis Date Anxiety Asthma Chronic migraine Depression DVT (deep venous thrombosis) (HCC) Pseudotumor cerebri Seeing optho Pulmonary embolism (HCC) No family history on file. SOCIAL HISTORY Social History Tobacco Use Smoking status: Light Smoker Smokeless tobacco: Never Substance Use Topics Alcohol use: Yes Comment: rare-wine Drug use: No PHYSICAL EXAMINATION LMP 03/17/2017 (Approximate) GENERAL EXAM: General appearance: NAD, pleasant. HEENT: NC/AT, nasal congestion absent, no oral lesions, membranes moist. Lungs: CTA bilaterally. CV: RRR nl S1, S2. Extr: No cyanosis, clubbing or edema. Skin: Cool to touch. NEUROLOGICAL EXAM: General: Awake, alert, oriented x3 (person,place,time), speech fluent, no dysarthria; comprehension, naming, repetition intact. CN: PERRL, fundi with no evidence of papilledema, EOMI and without nystagmus, VFF to confrontation, facial sensation and strength are normal and symmetric, hearing is intact to finger rub bilaterally, palate and tongue movements are intact and symmetric. SCM and trapezius strength normal. Motor: Normal tone, bulk and strength (5/5) bilaterally (throughout extremities x4). Coordination: FNF, ISMAEL, HTS intact. No tremors. Sensation: LT intact throughout. No evidence of neglect. Gait: Stable with normal stride and arm swing. Assessment and Plan: ASSESSMENT/PLAN: 1. IIH (idiopathic intracranial hypertension) - ICD9: 348.2, ICD10: G93.2 Overall, pt headache improved since undergoing therapeutic LP. Note no s/s to suggest CSF leak headache at this time. Will continue to treat as IIH. Unfortunately, no reversible causes of IH identified. Patient would like to try Topamax again, with her not having been on it in approximately 15 years. Discussed contraindications which pt denies (I.e. renal stones). Reviewed SE and ADRs with pt (note mother also present). Will place on Topamax 25mg QHS x1 week then increase to 50mg QHS. Will continue with pt still taking Diamox 500mg BID. Educated on med-med interaction which pt will monitor for poss reactions and encouraged hydration. If stable, and tolerating Topamax, then at time of next visit will try to continue to increase Topamax dose while decreasing Diamox dose at such time. Pt agrees with plan. Follow up 04/29/23 with Don WALSH or susan sarkar. Mohini Cisneros MD I spent a total of 35 minutes on the date of the service which included preparing to see the patient, [id number] patient care, completing clinical documentation, obtaining and/or reviewing separately obtained history, performing a medically appropriate examination, counseling and educating the patient/family/caregiver, ordering medications, tests, or procedures, independently interpreting results (not separately reported), and communicating results to the patient/family/caregiver. documented in this encounter [facility] 03-12-2023 Miscellaneous Notes Last Office Visit: 02/21/2023 Future Office Visit: None Requested Prescriptions Pending Prescriptions Disp Refills acetaZOLAMIDE SR (DIAMOX SEQUELS) 500 mg capsule 60 capsule 1 Sig: Take 1 capsule by mouth twice daily. Date of Last Labs: 03/11/2023 documented in this encounter [facility] 03-11-2023 Surgical operatio n note BRIEF OPERATIVE / PROCEDURE NOTE LOG ID: [id number] SURGERY/PROCEDURE DATE: 03/11/2023 INCISION/PROCEDURE START TIME: 2:46 PM INCISION CLOSE/PROCEDURE END TIME: 3:00 PM SURGEON(S)/PROCEDURALIST(S) AND ACADEMIC AFFAIRS DIRECTOR(S): Surgeon(s) and Role: * Angela Tan MD, - Primary * Samira Nunez DO - Resident - Assisting No Additional Staff SURGERY/PROCEDURE(S): Diagnostic and therapeutic lumbar puncture ANESTHESIA: Local FINDINGS: Successful diagnostic and therapeutic LP. Opening pressure of 26, 20cc CSF removed, closing pressure <15. ESTIMATED BLOOD LOSS: 0 ml SPECIMENS: 20 cc Clear CSF COMPLICATIONS: None CLOSURE TECHNIQUE: Primary PRE-OP/PRE-PROCEDURE DIAGNOSIS: Idiopathic intracranial hypertension POST-OP/POST-PROCEDURE DIAGNOSIS: Same as Preop SIGNATURE: Samira Nunez DO PATIENT NAME: Stephanie Dickey DATE: March 11, 2023 TIME: 3:07 PM documented in this encounter [facility] 03-11-2023 Miscellaneous Notes AMBULATORY PATIENT EDUCATION TOPIC: Survival Skills: HEALTH PROMOTION: Self management READINESS TO LEARN COGNITIVE ABILITY: Alert and oriented MOTIVATION TO LEARN: Interested FAMILY SUPPORT: None - Unavailable/disinterested INSTRUCTION PROVIDED TO: Patient PATIENT LEARNS BEST BY: Verbal Instruction FACTORS AFFECTING LEARNING: None PHYSICAL LIMITATIONS AFFECTING LEARNING: None LEARNING RESPONSE DIAGNOSIS: IIH METHOD OF INSTRUCTION: Verbal instruction PATIENT / FAMILY RESPONSE: Verbalizes understanding of: POST-PROCEDURE INSTRUCTIONS-Correct actions to take to reduce post procedure complications FOLLOW-UP PLAN: Follow-up with Primary Care SUPPLEMENTAL MATERIAL: None REFERRAL (RECOMMENDATION): None Electronically Signed By: Naomie Courtney RN In Department: [facility] [id number] documented in this encounter [facility] 03-04-2023 Nurse Note IR Lumbar Puncture Pre Procedure Instructions: 03/11/2023 arrival time 1:30pm Stephanie Dickey is scheduled for an appointment for LUMBAR PUNCTURE DIAGNOSTIC with local anesthetic scheduled on Saturday, March 11, 2023 at [facility], [address] [place] [address]. Arrival: [facility] Entrance. Arrive to [place] [address] Imaging Department by 1:30pm Please bring your Photo ID and Insurance Card. Flat Sheet Maker/Transportation: You will need a responsible adult to accompany you to and from the procedure. Your driver lifter of sanitation truck is required to stay with you until you are taken into the procedure room. Please see updated Visitor Guidelines at [email or web address]. Labs: CSF labs will be collected at the time of your procedure. Diet: This procedure is performed with local anesthetic. It is ok to eat a light meal and drink fluids 2 hours prior to the procedure. Drink plenty of fluids the day before the procedure for hydration. Clothing: Wear comfortable clothing, you will not need to change into a hospital gown. Medications: If ok with your Prescribing Provider: RADIOLOGY RECOMMENDS THESE MEDICATION RESTRICTIONS: Stop None prior to procedure date. Recovery expectations: You will be in the recovery room post procedure for a minimum of 1 hour(s). Special concerns: Can you lay on your stomach? Do you have any medication pumps or monitoring devices on your body? Do you have any questions, concerns? If you have any questions please call [phone], Neuro Interventional Radiology Beryl Clark RN documented in this encounter [facility] 02-21-2023 Note HNO ID: [id number] Author: Mohini Cisneros Jr., MD Service: ? Author Type: Physician Type: Progress Notes Filed: 02/21/2023 8:58 AM Note Text: NEW PATIENT (CONSULT) HISTORY AND PHYSICAL EXAM (Virtual Visit with Video) PRIMARY CARE PHYSICIAN: Brissa Walls MD REASON FOR CONSULT: IIH REFERRING PHYSICIAN: Naomie Townsend PA-C CHIEF COMPLAINT: Headache For this virtual visit, the patient has been identified by name and (MRN and photo identification as well if available). Those taking part in visit: Patient and physician via [employer]. Consent for this visit received from patient. I have communicated my name and active licensure. The patient's identity and physical location were verified at the time of this visit. Either the patient or their legal food service representative has been informed of the risks and benefits of -- and alternatives to -- treatment through a remote evaluation and consents to proceed with the evaluation remotely. HISTORY OF PRESENT ILLNESS: Stephanie Dickey is a 28 year old female, with a PMH significant for and per notes of Don WALSH who previously saw patient on 01/22/23: Stephanie Dickey is a 28 year old right-handed female with a history of IIH, multiple PEs, migraine, BMI of 44. Her examination demonstrates mild papilledema bilaterally, no neurologic deficit. Patient with worsening of her headaches over the last month, history of both migraine and IIH. Was started on Ubrelvy by her primary care, with mild improvement in her headaches. Notes having a headache to 3 times a week, lasting anywhere from multiple hours to 2 days. Does have associated photophobia and nausea, but notes new onset pulsatile tinnitus on the left side. Unclear if this is migrainous versus IIH exacerbation. Patient was on Diamox in the past, has not been on this for few years. Due to papilledema appreciated on exam, worsening symptoms, pressure-like headaches will restart Diamox 500 mg twice daily extended release. Patient was told to go to ophthalmology in the next week, consult was placed and patient understands this. We will also obtain repeat MRI of the brain with and without contrast to evaluate for any signs of IIH, other structural abnormality. Additionally due to the pulsatile tinnitus and history of IIH, will obtain MRV, patient states that she does not believe she has ever had this. No thunderclap headache, no side locked headache warranting MRA imaging at this time. Patient's last MRI was at [facility], was instructed to get these records and forward them here. Regarding treatment of headache, patient currently taking Ubrelvy as needed, patient is contraindicated to have triptans due to history of multiple PEs with unknown cause. Patient has also tried and failed 2 triptans without any benefit to her headaches. Discussed red flag signs and symptoms that would warrant emergent evaluation in the emergency department, patient acknowledges this and understands. Patient to follow-up in 3 months or sooner should any symptoms change or worsen. Patient agreeable to treatment plan of care at this time. Stephanie was seen today for new patient. Diagnoses and all orders for this visit: IIH (idiopathic intracranial hypertension) - MRI BRAIN WO/W IVCON; Future - MRV BRAIN WO/W IVCON; Future - Cancel: CONSULT TO OPHTHALMOLOGY; Future - CONSULT TO OPHTHALMOLOGY; Future Headache, unspecified headache type - CONSULT TO NEUROLOGY - Cancel: CONSULT TO OPHTHALMOLOGY; Future - CONSULT TO OPHTHALMOLOGY; Future Worsening headaches - MRI BRAIN WO/W IVCON; Future - MRV BRAIN WO/W IVCON; Future Pulsatile tinnitus, left ear - MRV BRAIN WO/W IVCON; Future Migraine without aura, intractable, without status migrainosus - ubrogepant (UBRELVY) 100 mg tablet; Take 1 tablet by mouth as needed. Other orders - iv contrast (will be provided with radiology test); MRV Brain Inject, intravenously, once for 1 dose. No IV access, insert saline lock prior to the beginning of sedation, infusion, injection of imaging exam. Discontinue saline lock post exam. If Pt. has a central line or IVAD, may access for administration according to line specific nursing protocol. Once exam is complete flush line and de-access according to line specific nursing protocol in the MR contrast administration guidelines link. - acetaZOLAMIDE SR (DIAMOX SEQUELS) 500 mg capsule; Take 1 capsule by mouth twice daily. Per ophthalmology note during the interim: 1. IIH (idiopathic intracranial hypertension) -no evidence of enlarged blind spot on guy visual field (HVF) -OCT and exam with mild fulness but no clear edema / vessel obscuration Plan: -continue work-up per neurology (patient currently on Diamox). Patient scheduled for MRI/MRV. Possibly lumbar puncture afterwards? MRI and MRV were performed at [facility] and I do not have images for review. Per reports no acute intracranial process but empty sella no (more content not included)... [facility] 02-21-2023 History of Presen t illness Narrative NEW PATIENT (CONSULT) HISTORY AND PHYSICAL EXAM (Virtual Visit with Video) PRIMARY CARE PHYSICIAN: Brissa Walls MD REASON FOR CONSULT: [facility] REFERRING PHYSICIAN: Naomie Townsend PA-C CHIEF COMPLAINT: Headache For this virtual visit, the patient has been identified by name and (MRN and photo identification as well if available). Those taking part in visit: Patient and physician via [employer]. Consent for this visit received from patient. I have communicated my name and active licensure. The patient's identity and physical location were verified at the time of this visit. Either the patient or their legal food service representative has been informed of the risks and benefits of -- and alternatives to -- treatment through a remote evaluation and consents to proceed with the evaluation remotely. HISTORY OF PRESENT ILLNESS: Stephanie Dickey is a 28 year old female, with a PMH significant for and per notes of Don WALSH who previously saw patient on 01/22/23: Stephanie Dickey is a 28 year old right-handed female with a history of IIH, multiple PEs, migraine, BMI of 44. Her examination demonstrates mild papilledema bilaterally, no neurologic deficit. Patient with worsening of her headaches over the last month, history of both migraine and IIH. Was started on Ubrelvy by her primary care, with mild improvement in her headaches. Notes having a headache to 3 times a week, lasting anywhere from multiple hours to 2 days. Does have associated photophobia and nausea, but notes new onset pulsatile tinnitus on the left side. Unclear if this is migrainous versus IIH exacerbation. Patient was on Diamox in the past, has not been on this for few years. Due to papilledema appreciated on exam, worsening symptoms, pressure-like headaches will restart Diamox 500 mg twice daily extended release. Patient was told to go to ophthalmology in the next week, consult was placed and patient understands this. We will also obtain repeat MRI of the brain with and without contrast to evaluate for any signs of IIH, other structural abnormality. Additionally due to the pulsatile tinnitus and history of IIH, will obtain MRV, patient states that she does not believe she has ever had this. No thunderclap headache, no side locked headache warranting MRA imaging at this time. Patient's last MRI was at [facility], was instructed to get these records and forward them here. Regarding treatment of headache, patient currently taking Ubrelvy as needed, patient is contraindicated to have triptans due to history of multiple PEs with unknown cause. Patient has also tried and failed 2 triptans without any benefit to her headaches. Discussed red flag signs and symptoms that would warrant emergent evaluation in the emergency department, patient acknowledges this and understands. Patient to follow-up in 3 months or sooner should any symptoms change or worsen. Patient agreeable to treatment plan of care at this time. Stephanie was seen today for new patient. Diagnoses and all orders for this visit: IIH (idiopathic intracranial hypertension) - MRI BRAIN WO/W IVCON; Future - MRV BRAIN WO/W IVCON; Future - Cancel: CONSULT TO OPHTHALMOLOGY; Future - CONSULT TO OPHTHALMOLOGY; Future Headache, unspecified headache type - CONSULT TO NEUROLOGY - Cancel: CONSULT TO OPHTHALMOLOGY; Future - CONSULT TO OPHTHALMOLOGY; Future Worsening headaches - MRI BRAIN WO/W IVCON; Future - MRV BRAIN WO/W IVCON; Future Pulsatile tinnitus, left ear - MRV BRAIN WO/W IVCON; Future Migraine without aura, intractable, without status migrainosus - ubrogepant (UBRELVY) 100 mg tablet; Take 1 tablet by mouth as needed. Other orders - iv contrast (will be provided with radiology test); MRV Brain Inject, intravenously, once for 1 dose. No IV access, insert saline lock prior to the beginning of sedation, infusion, injection of imaging exam. Discontinue saline lock post exam. If Pt. has a central line or IVAD, may access for administration according to line specific nursing protocol. Once exam is complete flush line and de-access according to line specific nursing protocol in the MR contrast administration guidelines link. - acetaZOLAMIDE SR (DIAMOX SEQUELS) 500 mg capsule; Take 1 capsule by mouth twice daily. Per ophthalmology note during the interim: 1. IIH (idiopathic intracranial hypertension) -no evidence of enlarged blind spot on guy visual field (HVF) -OCT and exam with mild fulness but no clear edema / vessel obscuration Plan: -continue work-up per neurology (patient currently on Diamox). Patient scheduled for MRI/MRV. Possibly lumbar puncture afterwards? MRI and MRV were performed at [facility] and I do not have images for review. Per reports no acute intracranial process but empty sella noted. MRV unremarkable. Patient reports that headache is now changing position. If bends over and picks something up it is unbearable. States headaches have not stopped since for the past month. Went to ER during the interim for which she reports receiving IV headache cocktail with CT scan. Currently headache is diffuse and to the point can barely move her head. States worst pain at the present is at the base of her neck. Mild blurred vision. Does report pulsating and ringing in the ears. Nothing is taking edge of headache. Pt currently on diamox 500mg twice daily. Patient states that when first diagnosed with IIH was also having an epidural headache with CSF leak (per pt). Never previously constant headaches. Feels like pressure and head is going to explode. Prior to these might get a mild headache once every 2 weeks and that was only using a rare OTC like tylenol. Standing up sometimes makes headache worse but other times can worsen when supine. No family history significant for headache. No prior neck injuries. Not on OCP. No risk for tick exposure. On and off Diamox for years but last time was 5 years ago. REVIEW OF SYSTEMS GENERAL:No weight loss, malaise or fevers. HEENT:See HPI.No changes in hearing or vision, no nose bleeds or other nasal problems NECK:Negative for lumps, goiter, pain and significant neck swelling RESPIRATORY: Negative for cough, wheezing or shortness of breath. CARDIOVASCULAR: Negative for chest pain, leg swelling or palpitations. GASTROINTESTINAL: Negative for abdominal discomfort, blood in stools or black stools or change in bowel habits GENITOURINARY: No history of dysuria, frequency or incontinence MUSCULOSKELETAL: See HPI. NEUROLOGIC:See HPI. SKIN:Negative for lesions, rash, and itching. HEMATOLOGIC/LYMPHATIC/IMMUNOLOGI C:Negative for prolonged bleeding, bruising easily or swollen nodes. ENDOCRINE: Negative for cold or heat intolerance, polyuria, polydipsia and goiter. The remainder of the ROS was reviewed and is negative. LAB/IMAGING: Reviewed and include: WBC (k/uL) Date Value 10/17/2020 12.75 (H) RBC (m/uL) Date Value 10/17/2020 5.35 (H) Hemoglobin (g/dL) Date Value 10/17/2020 15.0 Hematocrit (%) Date Value 10/17/2020 45.6 MCV (fL) Date Value 10/17/2020 85.2 MCH (pG) Date Value 10/17/2020 28.0 MCHC (g/dL) Date Value 10/17/2020 32.9 RDW-CV (%) Date Value 10/17/2020 12.8 Platelet Count (k/uL) Date Value 10/17/2020 459 (H) MPV (fL) Date Value 10/17/2020 10.9 Glucose (mg/dL) Date Value 10/17/2020 105 (H) BUN (mg/dL) Date Value 10/17/2020 10 Creatinine (mg/dL) Date Value 10/17/2020 0.58 Sodium (mmol/L) Date Value 10/17/2020 140 Potassium (mmol/L) Date Value 10/17/2020 4.3 Chloride (mmol/L) Date Value 10/17/2020 107 (H) CO2 (mmol/L) Date Value 10/17/2020 22 Protein, Total (g/dL) Date Value 10/17/2020 7.3 Albumin (g/dL) Date Value 10/17/2020 4.6 Calcium (mg/dL) Date Value 10/17/2020 9.3 Alkaline Phosphatase (U/L) Date Value 10/17/2020 95 Bilirubin, Total (mg/dL) Date Value 10/17/2020 <0.2 (L) AST (U/L) Date Value 10/17/2020 16 ALT (U/L) Date Value 10/17/2020 20 URINALYSIS No results found for: PH, SPGR, UGLUC, UBILI, UKET, UHB, UPROT, UROBIL, UWBC, SSA MEDICATIONS: indomethacin (INDOCIN) 25 mg capsule Take 1 capsule by mouth three times daily. amoxicillin (AMOXIL) 875 mg tablet Take 1 tablet by mouth twice daily. acetaZOLAMIDE SR (DIAMOX SEQUELS) 500 mg capsule Take 1 capsule by mouth twice daily. ubrogepant (UBRELVY) 100 mg tablet Take 1 tablet by mouth as needed. meclizine (ANTIVERT) 25 mg tab Take 1 tablet by mouth every 6 hours as needed (dizziness). ondansetron orally disintegrating (ZOFRAN ODT) 4 mg disintegrating tablet Take 1 tablet by mouth every 8 hours as needed for nausea/vomiting. HISTORIES PAST MEDICAL HISTORY Diagnosis Date Anxiety Asthma Chronic migraine Depression DVT (deep venous thrombosis) (HCC) Pseudotumor cerebri Seeing optho Pulmonary embolism (HCC) No family history on file. SOCIAL HISTORY Social History Tobacco Use Smoking status: Light Smoker Smokeless tobacco: Never Substance Use Topics Alcohol use: Yes Comment: rare-wine Drug use: No PHYSICAL EXAMINATION LMP 03/17/2017 (Approximate) GENERAL EXAM: General appearance: NAD, pleasant. HEENT: NC/AT, nasal congestion absent, no oral lesions, membranes moist. NECK: ROM nml. Lungs: No audible cough, wheeze, sob. NEUROLOGICAL EXAM: General: Awake, alert, oriented x3 (person,place,time), speech fluent, no dysarthria; comprehension, naming, repetition intact. CN: EOMIs, VFF to confrontation, facial symmetric, hearing is intact, palate and tongue movements are intact and symmetric. SCM and trapezius strength symmetric. Motor: CALDERON equal and symmetric. Coordination: FNF, ISMAEL, HTS intact. No tremors. Sensation: Light touch subjectively intact throughout. No evidence of neglect. Gait: Stable. Assessment and Plan: ASSESSMENT/PLAN: 1. IIH (idiopathic intracranial hypertension) - ICD9: 348.2, ICD10: G93.2 Patient with headaches that are persistent, diffuse and not responding to treatment as above -- this includes attempted treatment with multiple migraine meds with no influence on headaches but also trial of Diamox 500mg BID with no improvement. Concern up to this point is that patient may have IIH given prior diagnoses per 2 separate LPs per patient and previous responses to Topamax and Diamox. Papilledema not reports by opthalmology, but per pt, they stated her nerves look different . Unfortunately I cannot evaluate pt by fundoscopic exam due to virtual visit. At this time, feel need to further look for IIH as an etiology given this history as well as empty sella reported on MRI brain. Thus, will proceed with LP to evaluate opening and closing pressures (therapeutic) and see if any improvement in symptoms. Will send off basic CSF labs at that time. In meantime, will evaluate for other possible etiologies of IIH including following labs: thyroid, LAURITA with reflex, B12, Lyme. Note pt not on OCP, Vit A, or othe rmeds that could result in IIH. Also pt without history of TJ. Pt will follow up after LP. In meantime pt to continue Diamox 500mg BID. Mohini Cisneros MD I spent a total of 40+ minutes on the date of the service which included preparing to see the patient, [id number] patient care, completing clinical documentation, obtaining and/or reviewing separately obtained history, performing a medically appropriate examination, counseling and educating the patient/family/caregiver, ordering medications, tests, or procedures, independently interpreting results (not separately reported), and communicating results to the patient/family/caregiver. documented in this encounter [facility] 02-06-2023 Miscellaneous Notes Orders faxed to [facility] per providers request. Natalie Cheng LPN Gely @ [facility] MRI calling to let provider know they only do MRV of brain without contrast. She is requesting new order for this. Please fax to [phone]. Imelda Hill RN documented in this encounter [facility] 02-04-2023 Miscellaneous Notes TC to patient with providers response to her question. Verbalized understanding. Natalie Cheng LPN Patient calling to say she saw Dr. Casas, Ophthalmology on 01/30/23 and she says he discussed a possible lumbar puncture with her. She is asking if this needs to be done before an MRI? She is still not scheduled for the MRI, waiting for precert. Imelda Hill RN documented in this encounter [facility] 01-31-2023 Miscellaneous Notes The patient wants to have tests done at the [facility]. I spoke with Brittanie at [facility] in the pre-cert department. She states that [facility] works the pre-certs for clinic patients. I talked with the [facility] pre-cert department. The referral started for The MRV& MRI wasn't entered correctly. I started another referral for testing to be done at [facility]. The pre-cert department will work on the approval. I notified the patient by a MyChart message. I will clarify the referral process with the provider's office. I called the patient to find out more information. The patient needs approval for the MRV & MRI Brain wo/w contrast. The patient is scheduled with the [facility] for testing. I called the [facility] prior auth department and left a voice message for a callback. documented in this encounter [facility] 01-30-2023 Note HNO ID: [id number] Author: Radha Casas MD Service: ? Author Type: Physician Type: Progress Notes Filed: 01/30/2023 3:04 PM Note Text: Assessment and Plan 1. IIH (idiopathic intracranial hypertension) -no evidence of enlarged blind spot on guy visual field (HVF) -OCT and exam with mild fulness but no clear edema / vessel obscuration Plan: -continue work-up per neurology (patient currently on Diamox). Patient scheduled for MRI/MRV. Possibly lumbar puncture afterwards? -artificial tears lubrication and optimization of refraction to reduce eye strain / migraines -follow-up with ophthalmology in 4-6 months with guy visual field (HVF) 30-2, OCT nerve, and dilated fundus exam both eyes / sooner as needed I have confirmed and edited as necessary the relevant ophthalmic history, ROS, and the neuro exam findings as obtained by others. I have seen and examined Stephanie Dickey. I have discussed the case and the management of this patient's care with the Resident/Fellow, if applicable. I also have reviewed and agree with the assessment and plan as stated above and agree with all of its relevant components. Radha Casas MD January 30, 2023 3:01 PM [facility] 01-22-2023 Note HNO ID: [id number] Author: Naomie Townsend PA-C Service: ? Author Type: Physician Top Lift Trimmer Type: Progress Notes Filed: 01/22/2023 3:32 PM Note Text: Neurology Outpatient Clinic Date: January 22, 2023 Patient Name: Stephanie Dickey Referring physician: Mohini Diaz [address] [facility] [id number] Consult requested for headaches by Dr. Diaz. Recommendations will be communicated via shared medical record or US mail. Primary physician: Brissa Walls [address] [place] [address] Reason for Evaluation: Headaches Subjective HPI Stephanie Dickey is a 28 year old right-handed female with history of multiple PEs, IIIH who presents for evaluation of headaches. Dr. Diaz is the referring physician. Dr. Brissa Walls MD is the PCP. Patient presents for evaluation of headaches. Patient with history of IIH, last MRI was around 10 years ago, last on her ophthalmology 5 years ago. She has been on and off Diamox in the past. She has she also has history of chronic migraines since she was a child. Recently started on Ubrelvy for abortive therapy, not currently take anything for preventative. Notes mild improvement with taking the Ubrelvy, but not full resolution. Notes that her headaches started to increase about 1 month ago, notes associated pulsatile tinnitus on the left side that began 1 month ago. Worse with position change, has been constant. Patient also endorses a strange dizziness feeling, feeling like she is going underwater when going up and down stairs, going up an elevator. Patient notes that she was last evaluated by an eye doctor about a year ago. Patient denies any vision changes, notes that she does get floaters and stars when she gets a headache, currently has a headache right now. Her headaches are primarily to the temples bilaterally and to the back of the head. Associated with mild photophobia and mild nausea with occasional vomiting. Does have some neck pain that is new. Patient is unsure if this is an increase in her migraines, or worsening of her IIH. She denies any weight fluctuations, diet change. No new medications other than Ubrelvy. No incontinence, no sudden onset of headache, no vision loss, no double vision. Patient does note that she has had 2 instances during a headache where she has lost vision completely, but none of them have been within the last month. Current Headache treatment Preventative: nothing right Abortive: Ubrelvy Medications effective? sometimes # of doses of abortive medications per month: 2-3 a week Previous Medications: Topiramate- in highschool Elavil- no help Metoprolol Sumatriptan no effect Another triptan no effect Flexeril Headache Description Onset: After epidural at 13 Total headache days per month: 2-3 a week Headache free days: Yes Duration of attacks: multiple hours- 2 days Severity of headaches? 5/10 Onset to Peak: Semi gradual Location: temples and posteriorly Aura: Stars during headache Prodrome:none. Accompanying symptoms: photophobia, nausea, neck pain. Quality:sharp, throbbing, and aching . Worse with activity: Yes Triggers: none. Cough/sneeze/valsalva as trigger: no Positional changes: No Most common time of day for headache to begin:anytime. Time missed from work or school: none Risk Factors Visual-Motion sensitivity: Yes Tobacco Use: No Alcohol Use: No Other substances: No Caffeine: Yes, couple cups of coffee (used to help) Neck Pain /Back Pain: No Fibromyalgia: No History of Motor Vehicle Accident: No History of Traumatic Brain Injury and/or Concussion: No History of severe infection: No History of Syncope: No Obesity: Yes, Body mass index is 44 Family History Migraine or other headaches in the family: Mother with optic migraines Aneurysms in a first degree relative: No Brain tumors in the family: No Other neurological illness in the family: no ROS Review of Systems CONSTITUTIONAL: No reported fevers, chills, night sweats, or significant unintentional weight loss. EYES: No visual changes indicated. No eye pain or orbital swelling reported. HEENT: No hearing changes or vertiginous symptoms indicated. No history of nose bleeds reported. RESPIRATORY: No reported cough, wheezing and dyspnea. CARDIOVASCULAR: Negative for significant chest pain. Palpitations once a month- have been evaluated. GI: Negative for significant abdominal discomfort, blood in stools or black stools reported. No recent reported change in bowel habits. : No reported history of incontinence. No dark/cola colored urine reported. MUSCLOSKELETAL: No history of significant joint pain or swelling, or myalgias reported. SKIN: Negative for pertinent lesions, rash, and itching per report. HEMATOLOGY/ONCOLOGY: Negative for reported prolonged bleeding, bruising easily, and swollen nodes. ENDOCRINE: D (more content not included)... [facility] 01-22-2023 Miscellaneous Notes Prior auth started. Faxed clinical documents. Await response. Lo Kingston LPN documented in this encounter [facility] 01-22-2023 Instructions Naomie Townsend PA-C - 01/22/2023 3:06 PM EDT MRI brain with and without MRV brain Consult to ophthalmology Take diamox 500 mg bid Follow up in 2-3 months documented in this encounter [facility] 01-22-2023 History of Presen t illness Narrative Images from the original note were not included. Neurology Outpatient Clinic Date: January 22, 2023 Patient Name: Stephanie Dickey Referring physician: Mohini Diaz [address] [facility] [id number] Consult requested for headaches by Dr. Diaz. Recommendations will be communicated via shared medical record or US mail. Primary physician: Brissa Walls [address] [facility] [place] [address] Reason for Evaluation: Headaches Subjective HPI Stephanie Dickey is a 28 year old right-handed female with history of multiple PEs, IIIH who presents for evaluation of headaches. Dr. Diaz is the referring physician. Dr. Brissa Walls MD is the PCP. Patient presents for evaluation of headaches. Patient with history of IIH, last MRI was around 10 years ago, last on her ophthalmology 5 years ago. She has been on and off Diamox in the past. She has she also has history of chronic migraines since she was a child. Recently started on Ubrelvy for abortive therapy, not currently take anything for preventative. Notes mild improvement with taking the Ubrelvy, but not full resolution. Notes that her headaches started to increase about 1 month ago, notes associated pulsatile tinnitus on the left side that began 1 month ago. Worse with position change, has been constant. Patient also endorses a strange dizziness feeling, feeling like she is going underwater when going up and down stairs, going up an elevator. Patient notes that she was last evaluated by an eye doctor about a year ago. Patient denies any vision changes, notes that she does get floaters and stars when she gets a headache, currently has a headache right now. Her headaches are primarily to the temples bilaterally and to the back of the head. Associated with mild photophobia and mild nausea with occasional vomiting. Does have some neck pain that is new. Patient is unsure if this is an increase in her migraines, or worsening of her IIH. She denies any weight fluctuations, diet change. No new medications other than Ubrelvy. No incontinence, no sudden onset of headache, no vision loss, no double vision. Patient does note that she has had 2 instances during a headache where she has lost vision completely, but none of them have been within the last month. Current Headache treatment Preventative: nothing right Abortive: Ubrelvy Medications effective? sometimes # of doses of abortive medications per month: 2-3 a week Previous Medications: Topiramate- in highschool Elavil- no help Metoprolol Sumatriptan no effect Another triptan no effect Flexeril Headache Description Onset: After epidural at 15 Total headache days per month: 2-3 a week Headache free days: Yes Duration of attacks: multiple hours- 2 days Severity of headaches? 10 Onset to Peak: Semi gradual Location: temples and posteriorly Aura: Stars during headache Prodrome:none. Accompanying symptoms: photophobia, nausea, neck pain. Quality:sharp, throbbing, and aching . Worse with activity: Yes Triggers: none. Cough/sneeze/valsalva as trigger: no Positional changes: No Most common time of day for headache to begin:anytime. Time missed from work or school: none Risk Factors Visual-Motion sensitivity: Yes Tobacco Use: No Alcohol Use: No Other substances: No Caffeine: Yes, couple cups of coffee (used to help) Neck Pain /Back Pain: No Fibromyalgia: No History of Motor Vehicle Accident: No History of Traumatic Brain Injury and/or Concussion: No History of severe infection: No History of Syncope: No Obesity: Yes, Body mass index is 44 Family History Migraine or other headaches in the family: Mother with optic migraines Aneurysms in a first degree relative: No Brain tumors in the family: No Other neurological illness in the family: no ROS Review of Systems CONSTITUTIONAL: No reported fevers, chills, night sweats, or significant unintentional weight loss. EYES: No visual changes indicated. No eye pain or orbital swelling reported. HEENT: No hearing changes or vertiginous symptoms indicated. No history of nose bleeds reported. RESPIRATORY: No reported cough, wheezing and dyspnea. CARDIOVASCULAR: Negative for significant chest pain. Palpitations once a month- have been evaluated. GI: Negative for significant abdominal discomfort, blood in stools or black stools reported. No recent reported change in bowel habits. : No reported history of incontinence. No dark/cola colored urine reported. MUSCLOSKELETAL: No history of significant joint pain or swelling, or myalgias reported. SKIN: Negative for pertinent lesions, rash, and itching per report. HEMATOLOGY/ONCOLOGY: Negative for reported prolonged bleeding, bruising easily, and swollen nodes. ENDOCRINE: Does not tolerate heat. PSYCH: No reported depression or anxiety symptoms. No reported SI or HI. NEURO: Per HPI above. Sleep: Normal sleep pattern, Mood: normal, Energy: Normal - stable, Stress: Normal Medications: Current Outpatient Medications Medication Sig Dispense Refill amoxicillin (AMOXIL) 875 mg tablet Take 1 tablet by mouth twice daily. ubrogepant (UBRELVY) 100 mg tablet Take 1 tablet by mouth as needed. 16 tablet 5 meclizine (ANTIVERT) 25 mg tab Take 1 tablet by mouth every 6 hours as needed (dizziness). 30 tablet 1 ondansetron orally disintegrating (ZOFRAN ODT) 4 mg disintegrating tablet Take 1 tablet by mouth every 8 hours as needed for nausea/vomiting. 15 tablet 1 iv contrast (will be provided with radiology test) MRV Brain Inject, intravenously, once for 1 dose. No IV access, insert saline lock prior to the beginning of sedation, infusion, injection of imaging exam. Discontinue saline lock post exam. If Pt. has a central line or IVAD, may access for administration according to line specific nursing protocol. Once exam is complete flush line and de-access according to line specific nursing protocol in the MR contrast administration guidelines link. 1 Each 0 acetaZOLAMIDE SR (DIAMOX SEQUELS) 500 mg capsule Take 1 capsule by mouth twice daily. 60 capsule 1 No current facility-administered medications for this visit. ALLERGIES Allergen Reactions Clindamycin Swelling, Itching, Other: See Comments Facial swelling, flushed Past Medical History: PAST MEDICAL HISTORY Diagnosis Date Anxiety Asthma Chronic migraine Depression DVT (deep venous thrombosis) (HCC) Pseudotumor cerebri Seeing optho Pulmonary embolism (HCC) Family History: No family history on file. Also includes: na. 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 Head: Normocephalic Pulm: Breathing comfortably Neck: Supple Psych: Cooperative, appropriate affect Neurological Examination: Mental Status: Alert and Oriented to Place, Person, Time and Situation and Patient follows commands.. Language: Is intact to Comprehension, Fluency and Repetition Cranial Nerves: CNII: Visual acuity normal, visual heard full to confrontation CNIII, IV, : Pupils equal, round and reactive to light, full extraoccular movements, without nystagmus CN V: Facial sensation intact bilaterally to fine touch and pinprick, masseter 5/5 CN VII: Facial muscles symmetric and strong CN VIII: Hears finger rub well bilaterally CN IX: Gag Reflex not examined CN X: Palate elevates symmetrically CN XI: Full strength shoulder shrug bilaterally CN XII: Tongue protrusion full and midline Non-Dilated Fundiscopic Examination: Mild papilledema bilaterally Motor Exam: Tone - Normal Tone noted in all extremities Bulk - Normal bulk noted in all muscles tested. Inspection - Normal, no fasciculations or tremors noted. Power: MUSCLES Upper Extremity RIGHT LEFT Deltoid 5/5 5/5 Biceps 5/5 5/5 Triceps 5/5 5/5 Wrist Extension 5/5 5/5 Wrist Flexion 5/5 5/5 Finger Flexion 5/5 5/5 Finger Extension 5/5 5/5 Finger Abd 5/5 5/5 Finger Add 5/5 5/5 MUSCLES Lower Extremity RIGHT LEFT Hip Flexion 5/5 5/5 Hip Extension 5/5 5/5 BiFem (Knee Flex) 5/5 5/5 Quads (Knee Ext) 5/5 5/5 Gastroc (Plantflx) 5/5 5/5 TibAnt (Dorsiflx) 5/5 5/5 FlxHLong (Toe Flex) 5/5 5/5 ExtHLong (Toe Ext) 5/5 5/5 Sensory Examination Sensation is intact to light touch Reflexes Right Left Bicep 2/4 2/4 Tricep 2/4 2/4 BrRad 2/4 2/4 Knee 2/4 2/4 Ankle 2/4 2/4 Coordination: finger-to- nose-finger intact bilaterally and eluc-xi-abpu intact bilaterally. Gait: Patient's gait is normal, can heel and toe walk and can tandem walk Romberg: Negative DATA REVIEWED Actual films/image/tracing reviewed and summarized as follows: None available Old records reviewed and summarized as follows: Primary care Assessment/Plan Assessment & Plan: Stephanie Dickey is a 28 year old right-handed female with a history of IIH, multiple PEs, migraine, BMI of 44. Her examination demonstrates mild papilledema bilaterally, no neurologic deficit. Patient with worsening of her headaches over the last month, history of both migraine and IIH. Was started on Ubrelvy by her primary care, with mild improvement in her headaches. Notes having a headache to 3 times a week, lasting anywhere from multiple hours to 2 days. Does have associated photophobia and nausea, but notes new onset pulsatile tinnitus on the left side. Unclear if this is migrainous versus IIH exacerbation. Patient was on Diamox in the past, has not been on this for few years. Due to papilledema appreciated on exam, worsening symptoms, pressure-like headaches will restart Diamox 500 mg twice daily extended release. Patient was told to go to ophthalmology in the next week, consult was placed and patient understands this. We will also obtain repeat MRI of the brain with and without contrast to evaluate for any signs of IIH, other structural abnormality. Additionally due to the pulsatile tinnitus and history of IIH, will obtain MRV, patient states that she does not believe she has ever had this. No thunderclap headache, no side locked headache warranting MRA imaging at this time. Patient's last MRI was at [facility], was instructed to get these records and forward them here. Regarding treatment of headache, patient currently taking Ubrelvy as needed, patient is contraindicated to have triptans due to history of multiple PEs with unknown cause. Patient has also tried and failed 2 triptans without any benefit to her headaches. Discussed red flag signs and symptoms that would warrant emergent evaluation in the emergency department, patient acknowledges this and understands. Patient to follow-up in 3 months or sooner should any symptoms change or worsen. Patient agreeable to treatment plan of care at this time. Stephanie was seen today for new patient. Diagnoses and all orders for this visit: IIH (idiopathic intracranial hypertension) - MRI BRAIN WO/W IVCON; Future - MRV BRAIN WO/W IVCON; Future - Cancel: CONSULT TO OPHTHALMOLOGY; Future - CONSULT TO OPHTHALMOLOGY; Future Headache, unspecified headache type - CONSULT TO NEUROLOGY - Cancel: CONSULT TO OPHTHALMOLOGY; Future - CONSULT TO OPHTHALMOLOGY; Future Worsening headaches - MRI BRAIN WO/W IVCON; Future - MRV BRAIN WO/W IVCON; Future Pulsatile tinnitus, left ear - MRV BRAIN WO/W IVCON; Future Migraine without aura, intractable, without status migrainosus - ubrogepant (UBRELVY) 100 mg tablet; Take 1 tablet by mouth as needed. Other orders - iv contrast (will be provided with radiology test); MRV Brain Inject, intravenously, once for 1 dose. No IV access, insert saline lock prior to the beginning of sedation, infusion, injection of imaging exam. Discontinue saline lock post exam. If Pt. has a central line or IVAD, may access for administration according to line specific nursing protocol. Once exam is complete flush line and de-access according to line specific nursing protocol in the MR contrast administration guidelines link. - acetaZOLAMIDE SR (DIAMOX SEQUELS) 500 mg capsule; Take 1 capsule by mouth twice daily. She should return to see me in 3 months. I spent a total of 40 minutes on the date of the service which included preparing to see the patient, [id number] patient care, completing clinical documentation, obtaining and/or reviewing separately obtained history, performing a medically appropriate examination, counseling and educating the patient/family/caregiver, and ordering medications, tests, or procedures. Naomie Townsend PA-C [facility] Neurology This document has been created with the use of voice recognition technology. It may contain inaccuracies: (e.g. misspellings, inaccurate syntax or word sense) that have escaped review. documented in this encounter [facility] 01-17-2023 Note HNO ID: [id number] Author: Lyn Beckwith APRN.CHLOÉ Service: ? Author Type: Nurse Practitioner Type: Progress Notes Filed: 01/17/2023 12:48 PM Note Text: Chief Complaint Patient presents with: Ear Problem HPI Stephanie Dickey is a 28 year old female who presents here today for Above Complaints.. Patient presents for ear pain and dizziness. Patient reports that she has had tinnitus for about 1 month. In the past week patient has had dizziness, whooshing noise and left ear pain. Past medical history, appointments, medications, allergies reviewed. Previous Medical History PAST MEDICAL HISTORY Diagnosis Date Anxiety Asthma Chronic migraine Depression DVT (deep venous thrombosis) (HCC) Pseudotumor cerebri Seeing optho Pulmonary embolism (HCC) Previous Surgical History PAST SURGICAL HISTORY Procedure Laterality Date APPENDECTOMY SNGL x2 TONSILLECTOMY HX Family History No family history on file. Patient Allergies ALLERGIES No Known Allergies Current Medications Current Outpatient Medications on File Prior to Visit Medication Sig ubrogepant (UBRELVY) 100 mg tablet Take 1 tablet by mouth as needed. meclizine (ANTIVERT) 25 mg tab Take 1 tablet by mouth every 6 hours as needed (dizziness). ondansetron orally disintegrating (ZOFRAN ODT) 4 mg disintegrating tablet Take 1 tablet by mouth every 8 hours as needed for nausea/vomiting. No current facility-administered medications on file prior to visit. Social History Social History Tobacco Use Smoking status: Light Smoker Smokeless tobacco: Never Substance Use Topics Alcohol use: Yes Comment: rare-wine Drug use: No Review of Symptoms REVIEW OF SYSTEMS SEE HPI EXAM: BP 128/80 Pulse 74 Temp 37.1 ?C (98.7 ?F) Wt 104.8 kg (231 lb) LMP 03/17/2017 (Approximate) BMI 44.18 kg/m? General Appearance: gWell appearing, alert, in no acute distress, well-hydrated, well nourished.. Ears: External ears normal, canals clear. Nose/Sinuses: Nares normal, septum midline, mucosa normal, no drainage or sinus tenderness. Health Maintenance List PNEUMOCOCCAL(1 - PCV) Never done HEPATITIS C SCREENING Never done HIV SCREENING Never done COVID-19 VACCINE(3 - Booster for Pfizer series) due on 01/11/2022 DEPRESSION ASSESSMENT Never done HPV TESTING due on 2023 PAP TESTING due on 06/02/2023 DTAP,TDAP,TD(7 - Td or Tdap) due on 10/16/2030 HEPATITIS B Completed INFLUENZA Completed ASSESSMENT/PLAN: 1. Left ear pain - ICD9: 388.70, ICD10: H92.02 - CONSULT TO ENT -Family history of Menieres disease Lyn Beckwith APRN.CNP [facility] 01-17-2023 Instructions Lyn Beckwith APRN.CNP - 01/17/2023 12:48 PM EST Schedule with ENT documented in this encounter [facility] 01-17-2023 History of Presen t illness Narrative Chief Complaint Patient presents with: Ear Problem HPI Stephanie Dickey is a 28 year old female who presents here today for Above Complaints.. Patient presents for ear pain and dizziness. Patient reports that she has had tinnitus for about 1 month. In the past week patient has had dizziness, whooshing noise and left ear pain. Past medical history, appointments, medications, allergies reviewed. Previous Medical History PAST MEDICAL HISTORY Diagnosis Date Anxiety Asthma Chronic migraine Depression DVT (deep venous thrombosis) (HCC) Pseudotumor cerebri Seeing optho Pulmonary embolism (HCC) Previous Surgical History PAST SURGICAL HISTORY Procedure Laterality Date APPENDECTOMY SNGL x2 TONSILLECTOMY HX Family History No family history on file. Patient Allergies ALLERGIES No Known Allergies Current Medications Current Outpatient Medications on File Prior to Visit Medication Sig ubrogepant (UBRELVY) 100 mg tablet Take 1 tablet by mouth as needed. meclizine (ANTIVERT) 25 mg tab Take 1 tablet by mouth every 6 hours as needed (dizziness). ondansetron orally disintegrating (ZOFRAN ODT) 4 mg disintegrating tablet Take 1 tablet by mouth every 8 hours as needed for nausea/vomiting. No current facility-administered medications on file prior to visit. Social History Social History Tobacco Use Smoking status: Light Smoker Smokeless tobacco: Never Substance Use Topics Alcohol use: Yes Comment: rare-wine Drug use: No Review of Symptoms REVIEW OF SYSTEMS SEE HPI EXAM: BP 128/80 Pulse 74 Temp 37.1 C (98.7 F) Wt 104.8 kg (231 lb) LMP 03/17/2017 (Approximate) BMI 44.18 kg/m General Appearance: gWell appearing, alert, in no acute distress, well-hydrated, well nourished.. Ears: External ears normal, canals clear. Nose/Sinuses: Nares normal, septum midline, mucosa normal, no drainage or sinus tenderness. Health Maintenance List PNEUMOCOCCAL(1 - PCV) Never done HEPATITIS C SCREENING Never done HIV SCREENING Never done COVID-19 VACCINE(3 - Booster for Pfizer series) due on 01/11/2022 DEPRESSION ASSESSMENT Never done HPV TESTING due on 2023 PAP TESTING due on 06/02/2023 DTAP,TDAP,TD(7 - Td or Tdap) due on 10/16/2030 HEPATITIS B Completed INFLUENZA Completed ASSESSMENT/PLAN: 1. Left ear pain - ICD9: 388.70, ICD10: H92.02 - CONSULT TO ENT -Family history of Menieres disease Lyn Beckwith APRN.COMMERCIAL LINES ACCOUNT ASSISTANT documented in this encounter [facility] [place] 01-16-2023 Miscellaneous Notes Please set up. Pt called and is notified of providers message and instructions. Pt voices understanding and report she would be willing to see neuro, and she was getting it for her headaches. Shama Rowland RN Left message for patient to call office back Annette Ge Ma Can we check with patient and let them know it is being refused and they will only pay if she is seeing a specialist. Is she willing to see neuro?(I am assuming this is for her headaches?) Spoke to Rx benefits to check status. PA is denied due to not being prescribed or in consult by neurologist. Appeal can not be done due to needing to see specialist. Annette Ge Ma Form faxed. Milton Hi LPN Form complete. Annmarie Hanna APRN.CHLOÉ Received PA questionnaire. Form placed on provider desk for further review. Milton Hi LPN Form faxed. Awaiting response. Milton Hi LPN Form completed. Can fax back, as requested. Annmarie Hanna APRN.CHLOÉ PA completed through rx benefits form. In MEDICAL STAFF DIRECTOR office to sign and than will fax Annette Ge MA documented in this encounter [facility] [place] 09-03-2022 Miscellaneous Notes Pt requesting lab orders be faxed to [facility] where she is employed. Labs were faxed to [phone] via [employer]. Mary Suazo LPN documented in this encounter [facility] [place] 09-02-2022 Instructions Annmarie Hanna APRN.CNP - 09/02/2022 3:51 PM EDT Get the labwork. Let me know about the ubrelvy. Recheck on headaches in 2-3 months. Health Promotion: - Eat healthy -- go to [employer] to get started - Have a yearly physical - Mammogram yearly after age 40 - Get at least 30 minutes of physical activity daily - Get at least 7 to 8 hours of sleep each night - Reach and maintain a healthy weight - Get help to quit or don't start smoking - Limit alcohol use to one drink or less - Do not use illegal drugs or misuse prescription drugs - Wear a helmet when riding a bike and wear protective gear for sports - Wear a seatbelt in cars and not text and drive - Wear sunscreen documented in this encounter [facility] [place] 09-02-2022 History of Presen t illness Narrative This is a 27 year old female who presents today with: Patient presents with: Yearly Exam: Would like to try medication for migraines, has been on Imitrex in the past but this did not work for her HISTORY OF PRESENT ILLNESS: Stephanie Dickey is a 27 year old female. Patient presents with: Yearly Exam: Would like to try medication for migraines, has been on Imitrex in the past but this did not work for her Pt presents today for wellness exam. Only concern is migraines. Migraines. Has had migraines for 14 years. Getting them more frequently -- a few times weekly. Refers that she can be down 8+ hours. Refers has been worse s/p covid. Light may make a Iittle worse. Sometimes nausea with the headache. Refers nothing helps it, either. Hx of pseudotumor cerebri -- everything was okay 1 month ago at eye doctor. Headaches in the front and back. Pressure and throbbing. Nothing makes it better. Excedrine, tylenol, ibuprofen, mobic, Imitrex, topamax. Has taken propranolol, amitriptyline, ssri in the past, as well. REVIEW OF SYSTEMS GENERAL: No weight loss, malaise or fevers/chills HEENT:No changes in hearing or vision. NECK: Negative for lumps, goiter, pain and significant neck swelling RESPIRATORY: Negative for cough, hemoptysis, wheezing, dyspnea or shortness of breath CARDIOVASCULAR: Negative for chest pain, leg swelling, orthopnea, or palpitations GI: No nausea, vomiting, or diarrhea/constipation. No hematochezia/melena. No heartburn or reflux symptoms. : No history of dysuria, frequency or incontinence MUSCULOSKELETAL: Negative for joint pain or swelling. SKIN: Negative for lesions, rash, and itching ENDOCRINE: Negative for cold or heat intolerance, polyuria, polydipsia and goiter NEURO: No history syncope, paralysis, seizures or tremors. + hx of pseudotumor cerebri. PAST MEDICAL HISTORY: PAST MEDICAL HISTORY Diagnosis Date Anxiety Asthma Chronic migraine Depression DVT (deep venous thrombosis) (HCC) Pseudotumor cerebri Seeing optho Pulmonary embolism (HCC) PAST SURGICAL HISTORY Procedure Laterality Date APPENDECTOMY SNGL x2 TONSILLECTOMY HX ALLERGIES Patient has no known allergies. MEDICATIONS Current Outpatient Medications Medication Sig meclizine (ANTIVERT) 25 mg tab Take 1 tablet by mouth every 6 hours as needed (dizziness). ondansetron orally disintegrating (ZOFRAN ODT) 4 mg disintegrating tablet Take 1 tablet by mouth every 8 hours as needed for nausea/vomiting. metoprolol tartrate, short acting, (LOPRESSOR) 25 mg tablet Take 1 tablet by mouth twice daily. No current facility-administered medications for this visit. No family history on file. Social History Tobacco Use Smoking status: Light Smoker Smokeless tobacco: Never Substance Use Topics Alcohol use: Yes Comment: rare-wine Drug use: No EXAM: BP 124/90 Pulse 73 Resp 18 Ht 154 cm (5' 0.63 ) Wt 103.4 kg (228 lb) LMP 03/17/2017 (Approximate) SpO2 98% BMI 43.61 kg/m PHYSICAL EXAM: General Appearance: Well appearing, alert, in no acute distress, well-hydrated, well nourished.. Skin: Skin color, texture, turgor normal, no suspicious rashes or lesions. Head: Normocephalic, no masses, lesions, tenderness or abnormalities. Eyes: Anicteric sclera. Pupils are equally round and reactive to light. Extraocular movements are intact. Ears: External ears normal, canals clear, Normal TMs bilaterally. Oropharynx: Lips, mucosa, and tongue normal, teeth and gums normal, oropharynx normal. Neck: Supple, no adenopathy; thyroid symmetric, normal size, no bruits. Lungs: Lungs clear to auscultation. No wheezing, rhonchi, rales.. Heart: RRR without murmur, gallop, or rubs. No ectopy. Abdomen: Abdomen soft, non-tender. Bowel sounds normal. No masses, organomegaly. Extremities: No deformities, edema, skin discoloration, clubbing or cyanosis. Good capillary refill. Neurologic: Gait normal. ASSESSMENT/PLAN: 1. Wellness examination - ICD9: V70.0, ICD10: Z00.00 (primary diagnosis) - Follow up for annual exam in one year - LIPID PANEL BASIC - COMP METABOLIC PANEL - TSH BLD - CBC + DIFF Health Promotion: - Eat healthy -- go to [employer] to get started - Have a yearly physical - Mammogram yearly after age 40 - Get at least 30 minutes of physical activity daily - Get at least 7 to 8 hours of sleep each night - Reach and maintain a healthy weight - Get help to quit or don't start smoking - Limit alcohol use to one drink or less - Do not use illegal drugs or misuse prescription drugs - Wear a helmet when riding a bike and wear protective gear for sports - Wear a seatbelt in cars and not text and drive - Wear sunscreen 2. Migraine without aura, intractable, without status migrainosus - ICD9: 346.11, ICD10: G43.019 Pt has been on a variety of medications in the past. Had side effects from triptan. Will start ubrelvy. May consider adding on qulipta. Plan to recheck in a couple of months. - UBRELVY 100 MG TABLET Discussed treatment plan and patient voices understanding. Patient's questions answered appropriately. Medications and potential side effects were discussed and patient voices understanding. Annmarie Hanna APRN.CHLOÉ documented in this encounter [facility] [place] 07-24-2022 History of Presen t illness Narrative ntivert07/24/2022 Patient presents with: Covid Follow Up: Persistent dizziness and headaches SUBJECTIVE: This is a 27 year old that is here today for Above Complaints.. Diagnosed with COVID-19 about a week. A couple days after developed dizziness and headaches. Dizziness: dizziness in intermittent. Worse when sitting. Feels off balance and like a sea sickness. Make her nauseated. Last about an hour but happened several times throughout the day. Has tried dramamine but hasn't helped. Sometimes accompanied by headache and nausea. Denies presyncope, syncope, gait disturbance ear pain, tinnitus or hearing loss Headaches: are intermittent, but can get several through the day. Located back and front of head. Described as aching, sharp and shooting pain. Taking some tylenol occasionally which doesn't seem to help. Admits to accompanying nausea and and incident of vomiting. Sometimes the dizziness is with it. Has a hx of migraines and pseudotumor cerebri and used to see optho for this. Hs used Imitrex in the past but this gave her neck pain. Denies accompanying visual changes, gait disturbance, extremity numbness, tingling, weakness, confusion, facial drooping, or slurred speech. BP w/Orthostatic Vitals Date and Time Orthostatic BP Orthostatic Pulse BP Pulse BP Position BP Site BP Cuff Size 07/24/22 1009 121/86 72 -- -- Standing Right Arm -- 07/24/22 1008 109/76 79 -- -- Sitting Right Arm -- 07/24/22 1007 121/67 76 -- -- Supine Right Arm -- 07/24/22958 -- -- 118/88 75 -- -- -- Peak Flow Date and Time PF Resp 07/24/22958 -- 18 PAST MEDICAL HISTORY Diagnosis Date Anxiety Asthma Chronic migraine Depression DVT (deep venous thrombosis) (HCC) Pseudotumor cerebri Seeing optho Pulmonary embolism (HCC) ALLERGIES Patient has no known allergies. MEDICATIONS Current Outpatient Medications Medication Sig metoprolol tartrate, short acting, (LOPRESSOR) 25 mg tablet Take 1 tablet by mouth twice daily. No current facility-administered medications for this visit. Medications and allergies reviewed by this provider. SOCIAL HISTORY Social History Tobacco Use Smoking status: Light Smoker Smokeless tobacco: Never Substance Use Topics Alcohol use: Yes Comment: rare-wine Drug use: No REVIEW OF SYSTEMS All other reviewed and negative other than HPI. OBJECTIVE: BP 118/88 Pulse 75 Temp 36.8 C (98.2 F) Resp 18 Wt 105 kg (231 lb 6.4 oz) LMP 03/17/2017 (Approximate) SpO2 98% BMI 46.74 kg/m . Vital signs reviewed by this provider. APPEARANCE Well appearing, alert, in no acute distress, well-hydrated, well nourished. EYES PERRLA, conjunctiva and sclera normal. EARS External ears normal, canals clear HEART RRR with normal S1 and S2, no murmurs, no gallops, no JVD appreciated LUNG clear to auscultation EXTREMITIES Extremities normal, No deformities, No skin discoloration, and No edema NEURO Awake, alert and oriented x 3, Cranial nerves II-XII grossly intact, Reflexes symmetrical, Normal gait, No involuntary motions., and negative findings: speech normal, mental status intact, gait, including heel, toe, and tandem walking normal, Romberg negative, muscle tone normal, muscle strength normal, rapid alternating movements normal, finger to nose normal, reflexes normal and symmetric, plantar response downgoing bilaterally SKIN Skin color, texture, turgor normal, no suspicious rashes or lesions to exposed skin Negative [place] Hallpike but admits to some nausea and mild dizziness with maneuver ASSESSMENT/PLAN: 1. Dizziness - ICD9: 780.4, ICD10: R42 (primary diagnosis) - possible related to recent COVID-19 infection consider BPPV - no red flag symptoms or exam findings - red flag symptoms discussed, verbalizes understanding - MECLIZINE 25 MG TABLET - ONDANSETRON 4 MG DISINTEGRATING TABLET - discussed she can try katie maneuver to see if that help - follow-up if symptoms persist to ER with red flag symptoms 2. Headache, unspecified headache type - ICD9: 784.0, ICD10: R51.9 - possibly related to COVID-19 infection vs reoccurrence of her pseudotumor cerebri - no red flag symptoms or exam findings - red flag symptoms discussed, verbalizes understanding -recommend OTC NSAID products - if persist would follow-up with optho for evaluation of reoccurrence of pseudotumor cerebri, to ER with red flag symptoms Renee Levine APRN.CNP Prescription instructions reviewed with patient as applicable. Patient advised if symptoms do not improve or if symptoms worsen sooner, to contact their primary care physician. Potential red flag symptoms discussed with the patient. Reviewed appropriate action plan to take if red flag symptoms occur. Patient agreeable to treatment plan. I spent a total of 40 minutes on the date of the service which included preparing to see the patient, [id number] patient care, completing clinical documentation, obtaining and/or reviewing separately obtained history, performing a medically appropriate examination, counseling and educating the patient/family/caregiver, and ordering medications, tests, or procedures. documented in this encounter [facility] [place] 02-06-2022 History of Presen t illness Narrative Follow up podiatric office visit for: Chief Complaint: This 27 year old who presents for follow up:left ankle pain. Patient presents to clinic for follow-up left ankle pain. Patient continues to have chronic constant pain to the lateral aspect of left ankle, mostly along the peroneal tendons. Patient states the pain is more severe when she is on her foot. Past treatment has included physcial therapy here at [facility]. She has tried over the counter orthotics. The pain is not horrible but she states she is unable to run or do anything because of the pain. Again, most of the pain is mostly along the lateral aspect of left ankle. Patient constantly takes tylenol, ibupuprofen and alleve but nothing helps. PAIN EVALUATION 02/06/2022 0815 Pain Level: 3 Pain Location: Ankle-Left Description: Throbbing Duration Amount of Time: 10 Duration Units: Months Frequency: Continuous Intervention/Comfort measure: Medication;Relaxation No results found for: HBA1C PCP: Brissa Walls MD PAST MEDICAL HISTORY Diagnosis Date Anxiety Asthma Chronic migraine Depression DVT (deep venous thrombosis) ([facility]) Pseudotumor cerebri Seeing optho Pulmonary embolism ([facility]) Current Outpatient Medications Medication Sig metoprolol tartrate, short acting, (LOPRESSOR) 25 mg tablet Take 1 tablet by mouth twice daily. No current facility-administered medications for this visit. ALLERGIES No Known Allergies PAST SURGICAL HISTORY Procedure Laterality Date APPENDECTOMY SNGL x2 TONSILLECTOMY HX Physical Exam: Constitutional: Pt is a well developed 27 year old female who is alert, oriented, cooperative and in no apparent distress. OBJECTIVE: NVSI unchanged from previous visit. Dermatological: Nails 1-5 b/l are normal. Webspaces clean and dry 1-4 b/l. Skin appears well hydrated and supple. good color, texture, turgor. No open lesions present. No callosities present. Musculoskeletal/Orthopaedic: Patient has pain to palpation of left lateral ankle along peroneal tendons. There is audible click with foreceful eversion of left ankle Mri: . INTACT PERONEAL TENDONS. PROMINENT PERONEAL TUBERCLE ARISING FROM THE CALCANEUS WITH MINIMAL EDEMA SIGNAL AND OVERLYING SUBCUTANEOUS EDEMA PROBABLY DUE TO CHRONIC BIOMECHANICAL CHANGES AND ADVENTITIAL BURSITIS. 2. SMALL MEDIAL TALAR DOME OSTEOCHONDRAL LESION. 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 She has pain along peroneal tendons. Past work-up has included boot immobilization, ankle bracing and referral to therapy. Mri has been performed and shows no tendon rupture but does show possible bursitis and/or prominent peroneal tubercle. I suspect this patient's pain is related to biomechanics placing increased pressure along the peroneals. Further, there is possible subluxing peroneal on exam. Given her pain and the inability to walk without pain, I am going to refer patient to my colleague Dr. Roldan Ogden for consultation regarding possible subluxing peroneal. We discussed the ocd of talus. No pain in this region. Continue to monitor. Kofi Matute DPM AMB ROOMING INTAKE FLOWSHEET DATA Risk Screening Do you have concerns about personal safety or safety in the home?: No Pain Pain Level: 3 Pain Location: Ankle-Left Description: Throbbing Duration Amount of Time: 10 Duration Units: Months Frequency: Continuous Intervention/Comfort measure: Medication, Relaxation Patient presents with: Left Ankle - Established Patient, Pain documented in this encounter [facility] [place] [facility] Diagnosis Dizziness- Primary Dizziness and giddiness Headache, unspecified headache type [facility] Diagnosis Wellness examination- Primary Migraine without aura, intractable, without status migrainosus [facility] Diagnosis Left ear pain- Primary Otalgia, unspecified [facility] Diagnosis IIH (idiopathic intracranial hypertension)- Primary Benign intracranial hypertension Headache, unspecified headache type Worsening headaches Headache Pulsatile tinnitus, left ear Migraine without aura, intractable, without status migrainosus [facility] Diagnosis Headache, unspecified headache type- Primary [facility] Diagnosis IIH (idiopathic intracranial hypertension) Benign intracranial hypertension IIH (idiopathic intracranial hypertension) Benign intracranial hypertension [facility] Diagnosis IIH (idiopathic intracranial hypertension) Benign intracranial hypertension IIH (idiopathic intracranial hypertension) Benign intracranial hypertension [facility] Diagnosis IIH (idiopathic intracranial hypertension)- Primary Benign intracranial hypertension documented in this encounter [facility] note* Diagnosis IIH (idiopathic intracranial hypertension)- Primary Benign intracranial hypertension Headache, unspecified headache type Migraine without aura, intractable, without status migrainosus Chronic tension-type headache, intractable Chronic tension type headache Neck pain Cervicalgia Adverse effect of drug, initial encounter [facility] Diagnosis Right knee injury, initial encounter- Primary documented in this encounter [facility] note* Diagnosis Wellness examination- Primary documented in this encounter [facility] note* Diagnosis IIH (idiopathic intracranial hypertension)- Primary Benign intracranial hypertension documented in this encounter [facility] note* Diagnosis IIH (idiopathic intracranial hypertension)- Primary Benign intracranial hypertension Obstructive sleep apnea Obstructive sleep apnea (adult) (pediatric) Headache, unspecified headache type Migraine without aura, intractable, without status migrainosus documented in this encounter [facility] note* Diagnosis IIH (idiopathic intracranial hypertension)- Primary Benign intracranial hypertension Regular astigmatism of both eyes Regular astigmatism [facility] Diagnosis IIH (idiopathic intracranial hypertension)- Primary Benign intracranial hypertension Obstructive sleep apnea Obstructive sleep apnea (adult) (pediatric) Class 2 obesity with body mass index (BMI) of 38.0 to 38.9 in adult, unspecified obesity type, unspecified whether serious comorbidity present [facility] Diagnosis IIH (idiopathic intracranial hypertension)- Primary Benign intracranial hypertension [facility] Diagnosis IIH (idiopathic intracranial hypertension)- Primary Benign intracranial hypertension Obstructive sleep apnea Obstructive sleep apnea (adult) (pediatric) Class 2 obesity with body mass index (BMI) of 38.0 to 38.9 in adult, unspecified obesity type, unspecified whether serious comorbidity present Benign intracranial hypertension documented in this encounter [facility] for referral (narrative)* Diagnostic Procedure Only (Urgent) - Authorized Specialty Diagnoses / Procedures Referred By Contac t Referred To Contact XR IMAGING Diagnoses IIH (idiopathic intracranial hypertension) Procedures XR LUMBAR PUNCTURE DIAGN DIAGNOSTIC LUMBAR SPINAL PUNCTURE W/FLUOR OR CT Mohini Cisneros Jr., [place] [address] [id number] Xr Imaging Referral ID Status Reason Start Date Expiration Date Visits Requested Visits Authorized [id number] Authorized Auto-Generat ed Referral 02/21/2023 03/22/2024 1 1 [facility] for referral (narrative)* Diagnostic Procedure Only (Routine) - Closed Specialty Diagnoses / Procedures Referred By Contac t Referred To Contact XR IMAGING Diagnoses Right knee injury, initial encounter Procedures XR KNEE GENERAL 4V AP BOTH/PA BOTH/LAT/MERC RIGHT RADIOLOGIC EXAM KNEE COMPLETE 4/MORE VIEWS Annmarie Hanna APRN.COMMERCIAL LINES ACCOUNT ASSISTANT [address] [place] [address] [place] [address] Referral ID Status Reason Start Date Expiration Date V isits Requested Visits Authorized [id number] Closed Auto-Generate d Referral 07/02/2023 07/31/2024 1 1 * Physical Therapy (Routine) - Pending Review Specialty Diagnoses / Procedures Referred By Contac t Referred To Contact [facility] Diagnoses Right knee injury, initial encounter Procedures CONSULT TO PHYSICAL THERAPY PHYSICAL THERAPY EVALUATION HIGH COMPLEX 45 MINS Annmarie Hanna APRN.COMMERCIAL LINES ACCOUNT ASSISTANT [address] [place] [address] [facility] [place] [address] [place] [address] Referral ID Status Reason Start Date Expiration Date Visits Requested Visits Authorized [id number] Pending Review Auto-Generat ed Referral 07/02/2023 07/01/2024 1 1 * Consult, Test, Treat (Routine) - Authorized Specialty Diagnoses / Procedures Referred By Contac t Referred To Contact Orthopedics Diagnoses Right knee injury, initial encounter Procedures CONSULT TO ORTHOPAEDICS OFFICE/OUTPATIENT [facility] 60-74 MINUTES Annmarie Hanna APRN.CNP [address] [place] [address] Referral ID Status Reason Start Date Expiration Date Visits Requested Visits Authorized [id number] Authorized PCP Requested Referral 07/02/2023 07/01/2024 1 1 [facility] for referral (narrative)* Diagnostic Procedure Only (Routine) - Authorized Specialty Diagnoses / Procedures Referred By Contac t Referred To Contact [facility] [place] Diagnoses Obstructive sleep apnea Procedures HOME SLEEP APNEA TEST (HSAT) SLEEP STD AIRFLOW HRT RATE&O2 SAT EFFORT Naomie Bahena PA-C [address] [place] [address] [address] Referral ID Status Reason Start Date Expiration Date Visits Requested Visits Authorized [id number] Authorized Auto-Generat ed Referral 3 09/08/2024 1 1 [facility] for referral (narrative)* Diagnostic Procedure Only (Routine) - Pending Review Specialty Diagnoses / Procedures Referred By Contac t Referred To Contact [facility] [place] Diagnoses Obstructive sleep apnea Class 2 obesity with body mass index (BMI) of 38.0 to 38.9 in adult, unspecified obesity type, unspecified whether serious comorbidity present Procedures HOME SLEEP APNEA TEST (HSAT) SLEEP STD AIRFLOW HRT RATE&O2 SAT [place] [address] [place] [id number] [address] Referral ID Status Reason Start Date Expiration Date Visits Requested Visits Authorized [id number] Pending Review Auto-Generat ed Referral 12/12/2023 12/11/2024 1 [facility] Diagnostic Procedure Only (Routine) - Pending Review Specialty Diagnoses / Procedures Referred By Contac t Referred To Contact XR IMAGING Diagnoses IIH (idiopathic intracranial hypertension) Procedures XR LUMBAR PUNCTURE DIAGN DIAGNOSTIC LUMBAR SPINAL PUNCTURE W/FLUOR OR CT Mohini Cisneros Jr., MD [address] [facility] [address] [place] [address] [place] [address] Referral ID Status Reason Start Date Expiration Date Visits Requested Visits Authorized [id number] Pending Review Auto-Generat ed Referral 12/24/2023 01/22/2025 1 1 [facility] Summary Purpose Family History No Family History Records FoundNo Family History Records FoundNo Family History Records Found Advance Directives No Advanced Directives Records FoundNo Advanced Directives Records FoundNo Advanced Directives Records Found Reason for Referral Specialty Diagnoses / Procedures Referred By Contac t Referred To Contact Orthopedics Diagnoses Peroneal tendinitis of left lower extremity OCD (osteochondritis dissecans) of ankle Procedures CONSULT TO ORTHOPAEDICS OFFICE/OUTPATIENT [facility] 60-74 MINUTES Kofi Matute [address] [place] [address] Referral ID Status Reason Start Date Expiration Date Visits Requested Visits Authorized [id number] Authorized PCP Requested Referral 02/06/2022 02/06/2023 1 1 Specialty Diagnoses / Procedures Referred By Contac t Referred To Contact Ent - Otolaryngology Diagnoses Left ear pain Procedures CONSULT TO ENT OFFICE/OUTPATIENT [facility] 60-74 MINUTES Lyn Beckwith APRN.[employer] ACCOUNT ASSISTANT [address] [place] [address] Referral ID Status Reason Start Date Expiration Date Visits Requested Visits Authorized [id number] Authorized PCP Requested Referral 01/17/2023 01/17/2024 1 1 Specialty Diagnoses / Procedures Referred By Contac t Referred To Contact Diagnoses Migraine without aura, intractable, without status migrainosus Naomie Townsend PA-C [facility] [place] [address] Referral ID Status Reason Start Date Expiration Date Visits Re quested Visits Authorized [id number] Closed 1 1 Specialty Diagnoses / Procedures Referred By Contac t Referred To Contact Ophthalmology Diagnoses Headache, unspecified headache type IIH (idiopathic intracranial hypertension) Procedures CONSULT TO OPHTHALMOLOGY OFFICE/OUTPATIENT [facility] 60-74 MINUTES Naomie Townsend PA-C [facility] [place] [address] Referral ID Status Reason Start Date Expiration Date Visits Requested Visits Authorized [id number] Authorized PCP Requested Referral 01/29/2023 01/22/2024 1 1 Specialty Diagnoses / Procedures Referred By Contac t Referred To Contact MR IMAGING Diagnoses IIH (idiopathic intracranial hypertension) Worsening headaches Pulsatile tinnitus, left ear Procedures MRV BRAIN WO/W IVCON MRA; HEAD W & WO CONTRAST Naomie Townsend PA-C [address] [place] [address] Mr Imaging Referral ID Status Reason Start Date Expiration Date Visits Requested Visits Authorized [id number] Pending Review Auto-Generat ed Referral 01/22/2023 02/21/2024 1 1 Specialty Diagnoses / Procedures Referred By Contac t Referred To Contact MR IMAGING Diagnoses IIH (idiopathic intracranial hypertension) Worsening headaches Procedures MRI BRAIN WO/W IVCON MRI BRAIN BRAIN STEM W/O W/CONTRAST MATERIAL Naomie Townsend PA-C [address] [place] [address] Mr Imaging Referral ID Status Reason Start Date Expiration Date Visits Requested Visits Authorized [id number] Pending Review Auto-Generat ed Referral 01/22/2023 02/21/2024 1 1 Specialty Diagnoses / Procedures Referred By Contac t Referred To Contact Neurology Diagnoses Headache, unspecified headache type Procedures CONSULT TO NEUROLOGY OFFICE/OUTPATIENT [facility] 60-74 MINUTES Mohini Diaz MD [address] [place] [address] Referral ID Status Reason Start Date Expiration Date V isits Requested Visits Authorized [id number] Closed PCP Requested Referral 01/16/2023 01/16/2024 1 1 Specialty Diagnoses / Procedures Referred By Contac t Referred To Contact [facility] Diagnoses Chronic tension-type headache, intractable Neck pain Procedures CONSULT TO PHYSICAL THERAPY PHYSICAL THERAPY EVALUATION HIGH COMPLEX 45 MINS Naomie Townsend PA-C [address] [place] [address] [facility] [place] [address] [place] [address] Referral ID Status Reason Start Date Expiration Date Visits Requested Visits Authorized [id number] Pending Review Auto-Generat ed Referral 04/29/2023 04/28/2024 1 1 Specialty Diagnoses / Procedures Referred By Contac t Referred To Contact Neurology Diagnoses IIH (idiopathic intracranial hypertension) Procedures CONSULT TO NEUROLOGY OFFICE/OUTPATIENT [facility] 60-74 MINUTES Naomie Townsend PA-C [address] [place] [address] Referral ID Status Reason Start Date Expiration Date Visits Requested Visits Authorized [id number] Authorized PCP Requested Referral 3 09/07/2024 1 1 Specialty Diagnoses / Procedures Referred By Contac t Referred To Contact MR IMAGING Diagnoses IIH (idiopathic intracranial hypertension) Procedures MRV BRAIN WO/W IVCON MRA; HEAD W & WO CONTRAST Naomie Townsend PA-C [address] [place] [address] [place] [address] Referral ID Status Reason Start Date Expiration Date Visits Requested Visits Authorized [id number] Pending Review Auto-Generat ed Referral 12/24/2023 01/22/2025 1 1 Specialty Diagnoses / Procedures Referred By Contac t Referred To Contact MR IMAGING Diagnoses Benign intracranial hypertension Procedures MRI BRAIN WO/W IVCON MRI BRAIN BRAIN STEM W/O W/CONTRAST MATERIAL Naomie Townsend PA-C [address] [place] [address] [place] [address] Referral ID Status Reason Start Date Expiration Date Visits Requested Visits Authorized [id number] Pending Review Auto-Generat ed Referral 12/24/2023 01/22/2025 1 1 Specialty Diagnoses / Procedures Referred By Yonathan t Referred To Contact MR IMAGING Diagnoses IIH (idiopathic intracranial hypertension) Procedures MRV BRAIN WO IVCON MRA, HEAD W/O CONTRAST Naomie Townsend PA-C [address] [place] [address] [place] [address] Referral ID Status Reason Start Date Expiration Date Visits Requested Visits Authorized [id number] Pending Review Auto-Generat ed Referral 12/30/2023 01/28/2025 1 1 Medications Administered Section Inactive Administered Medications - up to 3 most recent administrations Medication Order MAR Action Action Date Dose Rate Site lidocaine (PF) 10 mg/mL (1 %) injection (XYLOCAINE) SUBCUTANEOUS, X (OR/PROCEDURE) PRN, Starting on Fri03/11/23 at 1446, Until Fri03/12/23 at 0303, Intraprocedure Given 03/11/2023 2:46 PM EDT 5 mL Oth er Inactive Administered Medications - up to 3 most recent administrations Medication Order MAR Action Action Date Dose Rate Site PHENYLephrine 2.5 % 1 Drop (AK-DILATE, JERI-SYNEPHRINE) 1 Drop, BOTH EYES, ONCE, 1 dose, On Fri10/14/23 at 1030, FOR OPHTHALMIC USE ONLY PROTECT FROM LIGHT Given 10/14/2023 10:30 AM EST 1 Drop proparacaine 0.5 % 1 Drop (ALCAINE) 1 Drop, BOTH EYES, ONCE, 1 dose, On Fri10/14/23 at 1030, FOR THE EYE Given 10/14/2023 10:30 AM EST 1 Drop tropicamide 1 % 1 Drop (MYDRIACYL) 1 Drop, BOTH EYES, ONCE, 1 dose, On Fri10/14/23 at 1030, FOR THE EYE Given 10/14/2023 10:30 AM EST 1 Drop Additional Source Comments INFORMATION SOURCE (unrecogn ized section and content) DATE CREATED AUTHOR AUTHOR'S ORGANIZ ATION 02/19/2022 [facility] DATE CREATED AUTHOR AUTHOR'S ORGANIZ ATION 12/26/2023 [facility] <item><item> Privacy Markings (unrecogniz ed section and content) Section Author: Shea Chandler PROHIBITION ON REDISCLOSURE OF CONFIDENTIAL INFORMATION This notice accompanies a disclosure of information concerning a client made to you with the consent of such client. Section Author: Shea Chandler PROHIBITION ON REDISCLOSURE OF CONFIDENTIAL INFORMATION This notice accompanies a disclosure of information concerning a client made to you with the consent of such client. Source Comments (unrecognize d section and content) In the event this informatio n is protected by the Federal Confidentiality of Alcohol and Drug Abuse Patient Records regulations: The Federal rules restrict any use of the information to criminally investigate or prosecute any alcohol or drug abuse patient.[facility] [place] the event this information is protected by the Federal Confidentiality of Alcohol and Drug Abuse Patient Records regulations: The Federal rules restrict any use of the information to criminally investigate or prosecute any alcohol or drug abuse patient.[facility] [place] the event this information is protected by the Federal Confidentiality of Alcohol and Drug Abuse Patient Records regulations: The Federal rules restrict any use of the information to criminally investigate or prosecute any alcohol or drug abuse patient.[facility] [place] the event this information is protected by the Federal Confidentiality of Alcohol and Drug Abuse Patient Records regulations: The Federal rules restrict any use of the information to criminally investigate or prosecute any alcohol or drug abuse patient.[facility] [place] the event this information is protected by the Federal Confidentiality of Alcohol and Drug Abuse Patient Records regulations: The Federal rules restrict any use of the information to criminally investigate or prosecute any alcohol or drug abuse patient.[facility] [place] the event this information is protected by the Federal Confidentiality of Alcohol and Drug Abuse Patient Records regulations: The Federal rules restrict any use of the information to criminally investigate or prosecute any alcohol or drug abuse patient.[facility] [place] the event this information is protected by the Federal Confidentiality of Alcohol and Drug Abuse Patient Records regulations: The Federal rules restrict any use of the information to criminally investigate or prosecute any alcohol or drug abuse patient.[facility] [place] the event this information is protected by the Federal Confidentiality of Alcohol and Drug Abuse Patient Records regulations: The Federal rules restrict any use of the information to criminally investigate or prosecute any alcohol or drug abuse patient.[facility] [place] the event this information is protected by the Federal Confidentiality of Alcohol and Drug Abuse Patient Records regulations: The Federal rules restrict any use of the information to criminally investigate or prosecute any alcohol or drug abuse patient.[facility] [place] the event this information is protected by the Federal Confidentiality of Alcohol and Drug Abuse Patient Records regulations: The Federal rules restrict any use of the information to criminally investigate or prosecute any alcohol or drug abuse patient.[facility] [place] the event this information is protected by the Federal Confidentiality of Alcohol and Drug Abuse Patient Records regulations: The Federal rules restrict any use of the information to criminally investigate or prosecute any alcohol or drug abuse patient.[facility] [place] the event this information is protected by the Federal Confidentiality of Alcohol and Drug Abuse Patient Records regulations: The Federal rules restrict any use of the information to criminally investigate or prosecute any alcohol or drug abuse patient.[facility] [place] the event this information is protected by the Federal Confidentiality of Alcohol and Drug Abuse Patient Records regulations: The Federal rules restrict any use of the information to criminally investigate or prosecute any alcohol or drug abuse patient.[facility] [place] the event this information is protected by the Federal Confidentiality of Alcohol and Drug Abuse Patient Records regulations: The Federal rules restrict any use of the information to criminally investigate or prosecute any alcohol or drug abuse patient.[facility] [place] the event this information is protected by the Federal Confidentiality of Alcohol and Drug Abuse Patient Records regulations: The Federal rules restrict any use of the information to criminally investigate or prosecute any alcohol or drug abuse patient.[facility] [place] the event this information is protected by the Federal Confidentiality of Alcohol and Drug Abuse Patient Records regulations: The Federal rules restrict any use of the information to criminally investigate or prosecute any alcohol or drug abuse patient.[facility] [place] the event this information is protected by the Federal Confidentiality of Alcohol and Drug Abuse Patient Records regulations: The Federal rules restrict any use of the information to criminally investigate or prosecute any alcohol or drug abuse patient.[facility] [place] the event this information is protected by the Federal Confidentiality of Alcohol and Drug Abuse Patient Records regulations: The Federal rules restrict any use of the information to criminally investigate or prosecute any alcohol or drug abuse patient.[facility] [place]In the event this information is protected by the Federal Confidentiality of Alcohol and Drug Abuse Patient Records regulations: The Federal rules restrict any use of the information to criminally investigate or prosecute any alcohol or drug abuse patient.[facility] [place]In the event this information is protected by the Federal Confidentiality of Alcohol and Drug Abuse Patient Records regulations: The Federal rules restrict any use of the information to criminally investigate or prosecute any alcohol or drug abuse patient.[facility] [place]In the event this information is protected by the Federal Confidentiality of Alcohol and Drug Abuse Patient Records regulations: The Federal rules restrict any use of the information to criminally investigate or prosecute any alcohol or drug abuse patient.[facility] [place]In the event this information is protected by the Federal Confidentiality of Alcohol and Drug Abuse Patient Records regulations: The Federal rules restrict any use of the information to criminally investigate or prosecute any alcohol or drug abuse patient.[facility] [place]In the event this information is protected by the Federal Confidentiality of Alcohol and Drug Abuse Patient Records regulations: The Federal rules restrict any use of the information to criminally investigate or prosecute any alcohol or drug abuse patient.[facility] [place]In the event this information is protected by the Federal Confidentiality of Alcohol and Drug Abuse Patient Records regulations: The Federal rules restrict any use of the information to criminally investigate or prosecute any alcohol or drug abuse patient.[facility] [place]In the event this information is protected by the Federal Confidentiality of Alcohol and Drug Abuse Patient Records regulations: The Federal rules restrict any use of the information to criminally investigate or prosecute any alcohol or drug abuse patient.[facility] [place]In the event this information is protected by the Federal Confidentiality of Alcohol and Drug Abuse Patient Records regulations: The Federal rules restrict any use of the information to criminally investigate or prosecute any alcohol or drug abuse patient.[facility] [place]In the event this information is protected by the Federal Confidentiality of Alcohol and Drug Abuse Patient Records regulations: The Federal rules restrict any use of the information to criminally investigate or prosecute any alcohol or drug abuse patient.[facility] [place]In the event this information is protected by the Federal Confidentiality of Alcohol and Drug Abuse Patient Records regulations: The Federal rules restrict any use of the information to criminally investigate or prosecute any alcohol or drug abuse patient.[facility] [place]In the event this information is protected by the Federal Confidentiality of Alcohol and Drug Abuse Patient Records regulations: The Federal rules restrict any use of the information to criminally investigate or prosecute any alcohol or drug abuse patient.[facility] [place]In the event this information is protected by the Federal Confidentiality of Alcohol and Drug Abuse Patient Records regulations: The Federal rules restrict any use of the information to criminally investigate or prosecute any alcohol or drug abuse patient.[facility] [place]In the event this information is protected by the Federal Confidentiality of Alcohol and Drug Abuse Patient Records regulations: The Federal rules restrict any use of the information to criminally investigate or prosecute any alcohol or drug abuse patient.[facility] [place] Reason for Visit (unrecogniz ed section and content) Referral ID Status Reason Start Date Expiration Date V isits Requested Visits Authorized [id number] Closed Auto-Generate d Referral 10/15/2021 11/14/2021 1 1 Reason Comments Established Patient Pain Reason Comments Covid Follow Up Persistent dizziness and headaches Specialty Diagnoses / Procedures Referred By Contac t Referred To Contact Family Practice / FAMILY MEDICINE Diagnoses Dizziness Headache COVID dizziness, headache, COVID + via home test, triaged by clinical Procedures 4C EST 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[employer], 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 [address] [place] [address] Referral ID Status Reason Start Date Expiration Date V isits Requested Visits Authorized [id number] Authorized 07/23/2022 11/09/2022 99 99 Reason Comments Yearly Exam Would like to try me dication for migraines, has been on Imitrex in the past but this did not work for her Reason Comments Lab Orders Reason Comments Ear Problem Reason Comments New Patient Specialty Diagnoses / Procedures Referred By Contac t Referred To Contact Neurology Diagnoses Headache, unspecified headache type Procedures CONSULT TO NEUROLOGY OFFICE/OUTPATIENT [facility] 60-74 MINUTES Mohini Diaz MD [address] [place] [address] Referral ID Status Reason Start Date Expiration Date V isits Requested Visits Authorized [id number] Closed PCP Requested Referral 01/16/2023 01/16/2024 1 1 Reason Comments Orders Reason Comments Patient Question Reason Comments MRV Order Reason Comments Insurance Authorization [employer] Reason Comments Headache Specialty Diagnoses / Procedures Referred By Contac t Referred To Contact Neurology Diagnoses IIH (idiopathic intracranial hypertension) Procedures CONSULT TO NEUROLOGY OFFICE/OUTPATIENT [facility] 60-74 MINUTES Naomie Townsend PA-C [address] [phone] Referral ID Status Reason Start Date Expiration Date V isits Requested Visits Authorized [id number] Closed PCP Requested Referral 01/27/2023 01/27/2024 1 1 Specialty Diagnoses / Procedures Referred By Contac t Referred To Contact ADMITTING Diagnoses IIH (idiopathic intracranial hypertension) Procedures DIAGNOSTIC LUMBAR SPINAL PUNCTURE SPINAL PUNCTURE LUMBAR DIAGNOSTIC [facility] [address] [place] [address] Referral ID Status Reason Start Date Expiration Date Visits Re quested Visits Authorized [id number] 1 1 Reason Onset Date Comments Refill Request 03/12/2023 Reason Comments Established Patient Lumbar puncture resu lts Reason Comments Follow Up Reason Comments Acute Visit R knee pain/stiffnes s x1week Reason Comments Recheck Reason Comments Appointment Reason Comments Appointment Reason Comments Headaches Reason Comments Patient Update Reason Comments Follow Up Pt reported increase d High x4 per week. 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 Start Date End Date Brissa Walls MD [address] [facility] [place] [address] PCP - General Family Medicine 03/20/17 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 Start Date End Date Brissa Walls MD [address] [facility] [place] [address] PCP - General Family Medicine 03/20/17 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 Start Date End Date Brissa Walls MD [address] [facility] [place] [address] PCP - General Family Medicine 03/20/17 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 Start Date End Date Brissa Walls MD [address] [facility] [place] [address] PCP - General Family Medicine 03/20/17 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 Start Date End Date Brissa Walls MD [address] [facility] [place] [address] PCP - General Family Medicine 03/20/17 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 Start Date End Date Brissa Walls MD [address] [facility] [place] [address] PCP - General Family Medicine 03/20/17 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 Start Date End Date Brissa Walls MD [address] [facility] [place] [address] PCP - General Family Medicine 03/20/17 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 Start Date End Date Brissa Walls MD [address] [facility] [place] [address] PCP - General Family Medicine 03/20/17 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 Start Date End Date Brissa Walls MD [address] [facility] [place] [address] PCP - General Family Medicine 03/20/17 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 Start Date End Date Brissa Walls MD [address] [facility] [place] [address] PCP - General Family Medicine 03/20/17 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 Start Date End Date Brissa Walls MD [address] [facility] [place] [address] PCP - General Family Medicine 03/20/17 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 Start Date End Date Brissa Walls MD [address] [facility] [place] [address] PCP - General Family Medicine 03/20/17 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 Start Date End Date Brissa Walls MD [address] [facility] [place] [address] PCP - General Family Medicine 03/20/17 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 Start Date End Date Brissa Walls MD [address] [facility] [place] [address] PCP - General Family Medicine 03/20/17 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 Start Date End Date Brissa Walls MD [address] [facility] [place] [address] PCP - General Family Medicine 03/20/17 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 Start Date End Date Brissa Walls MD [address] [facility] [place] [address] PCP - General Family Medicine 03/20/17 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 Start Date End Date Brissa Walls MD [address] [facility] [place] [id number] PCP - General Family Medicine 03/20/17 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 Start Date End Date Brissa Walls MD [address] [facility] [place] [address] PCP - General Family Medicine 03/20/17 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 Start Date End Date Brissa Walls MD [address] [facility] [place] [address] PCP - General Family Medicine 03/20/17 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 Start Date End Date Brissa Walls MD [address] [facility] [place] [address] PCP - General Family Medicine 03/20/17 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 Start Date End Date Brissa Walls MD [address] [facility] [place] [address] PCP - General Family Medicine 03/20/17 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 Start Date End Date Brissa Walls MD [address] [facility] [place] [address] PCP - General Family Medicine 03/20/17 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 This clinical summary was aggregated from multiple sources. Caution should be exercised in using it in the provision of clinical care. This summary normalizes information from multiple sources, and as a consequence, information in this document may materially change the coding, format and clinical context of patient data. In addition, data may be omitted in some cases. CLINICAL DECISIONS SHOULD BE BASED ON THE PRIMARY CLINICAL RECORDS. [facility]. provides no warranty or guarantee of the accuracy or completeness of information in this document.
--- NOTE | 2024-01-06 06:43 | MRI_ITS ---
STUDY: MRI BRAIN WITH AND WITHOUT CONTRAST REASON FOR EXAM: Female, 29 years old. ICP ELEVATION, BENIGN INTRACRANIAL HYPERTENSION TECHNIQUE: Standardized multiplanar fat and water weighted pulse sequences were obtained. IV 17ml clariscan was administered for the contrast portion of the examination. COMPARISON: None. FINDINGS: Normal size of the ventricles and extra-axial spaces for the patient''s age. Normal white matter tracts of the supratentorial brain. Normal bilateral basal ganglia. Normal thalami. There is no extra-axial fluid accumulation. Normal flow voids within the major intracranial circulation suggesting patency by spin echo criteria. Normal venous enhancement. There is no enhancing intra-axial or extra-axial abnormality. Partial empty sella deformity. Normal, pituitary gland, infundibular stalk, optic chiasm and hypothalamus. Normal tectal plate and pineal gland. Normal midbrain, sonia and medulla. Normal cerebellum. Normal basal cisterns. Normal bilateral temporal bones. Normal bilateral internal auditory canals. No demonstrated orbital abnormality, within the constraints of a routine brain study. Large mucous retention cyst in the left maxillary sinus. Normal calvarium and skull base. Normal visualized soft tissue structures. Normal visualized upper cervical spine. MRI/Brain W/WO Contrast IMPRESSION: Partial empty sella deformity is observed however not all of the typical findings of intracranial hypertension are visualized. Clinical correlation is recommended,. Electronically Signed: Alex Rodriguez MD at 16:58 EST ,
--- NOTE | 2024-01-06 06:43 | MRI_ITS ---
INDICATION: DURAL VENOUS SINUS THROMBOSIS SUSPECTED, IIH EXAMINATION: MRV- MRV Head W/O Contrast TECHNIQUE: Routine MR venogram of the brain including 3D time of flight was performed without gadolinium. 3D reconstructions were reviewed. IV Contrast Dosage and Agent: None. COMPARISON: MRV February 19, 2023, MRI brain January 06, 2024. FINDINGS: Superior sagittal sinus: Patent, no thrombus appreciated Internal cerebral veins: Patent, no thrombus appreciated Straight sinus: Patent, no thrombus appreciated Transverse sinuses: Patent, no thrombus appreciated Sigmoid sinuses: Patent, no thrombus appreciated MRI/MRV Head Without Contrast IMPRESSION: Unremarkable MRV of the head. Electronically Signed: Kofi Jimenez MD at 7:35 EST ,
== END | disposition home or self-care (01) ==
PROVIDERS: PCP Registered Nurse; Referring Provider Physician Assistant Medical; Visit Provider Physician Assistant Medical
DX: G93.2 Benign intracranial hypertension (principal)
CPT/HCPCS: 70544; 70553; A9575

== ENCOUNTER → 2024-11-09 | Outpatient (CLI) | payer OTHER, SELFPAY ==
--- NOTE | 2024-11-09 11:44 | RAD_ITS ---
STUDY: X-RAY - THORACIC SPINE REASON FOR EXAM: Female, 29 years old. Pain in thoracic spine TECHNIQUE: 3 view(s) of the thoracic spine were obtained. COMPARISON: 01/21/2014 FINDINGS: Normal kyphosis of the thoracic spine. There is no substantial scoliosis. Normal thoracic vertebrae and endplates. Normal disc space heights. The soft tissue structures are unremarkable. RAD/Thoracic Spine 3 Views IMPRESSION: Normal x-ray examination of the thoracic spine. Electronically Signed: Volodymyr Benoit MD at 0:02 EST ,
== END | disposition home or self-care (01) ==
LOC: RAD 11:42
PROVIDERS: PCP Registered Nurse; Referring Provider Registered Nurse; Visit Provider Registered Nurse
DX: M54.6 Pain in thoracic spine (principal)
CPT/HCPCS: 72072

== ENCOUNTER 2025-03-29 20:30 | Emergency (ER) | payer OTHER, SELFPAY ==
[2025-03-29 20:31] VITALS: BP 166/92; PULSE 108; RESP 18; TEMP 36.9; O2SAT 100; BMI 44.7
[2025-03-29 20:44] VITALS: O2SAT 98
--- NOTE | 2025-03-29 21:07 | EKG12_ITS ---
Test Reason : SOB Blood Pressure : */* mmHG Vent. Rate : 78 BPM Atrial Rate : 78 BPM P-R Int : 134 ms QRS Dur : 80 ms QT Int : 372 ms P-R-T Axes : 30 -6 19 degrees QTcB Int : 424 ms Normal sinus rhythm Minimal voltage criteria for LVH, may be normal variant ( R in aVL ) Borderline ECG Confirmed by VIANNEY TIJERINA, RD ([id number]), news copy editor CHARLEEN KIM ([id number]) on 03/30/2025 10:37:16 AM Referred By: Confirmed By: RD FAITH MD
[2025-03-29 21:29] LABS: Absolute Lymphocyte Count 4.37 X10^3/uL (0.83-4.51); Absolute Neutrophil Count 6.9 X10^3/uL (2.0-7.7); Basophil# 0.07 X10^3/uL; Basophil% 0.6 % (0-1); Eosinophil# 0.15 X10^3/uL; Eosinophils% 1.2 % (0-5); Hematocrit 41.8 % (37-47); Hemoglobin 14.4 g/dL (12.0-15.0); Lymphocyte # 4.37 X10^3/ul (0.83-4.51); Lymphocyte % 35.5 % (19-41); Mean Corp Hgb Conc 34.4 g/dL (32-36); Mean Corpuscular Hgb 28.2 pg (27.0-32.0); Mean Corpuscular Volume 81.8 fL (81-99); Mean Platelet Vol. 10.3 fl (6.2-12.0); Monocyte# 0.75 X10^3/uL; Monocyte% 6.1 % (0-10); NRBC Flagged by Analyzer 0 % (0-5); Neutrophil # 6.94 X10^3/uL (2.7-7.7); Neutrophil % 56.4 % (47-70); Platelet Count 445 K/mm3 (150-450); RBC Distribution Width CV 12.9 % (11.6-14.6); RBC Distribution Width SD 38.3 fl (35.1-43.9); Red Blood Count 5.11 M/mm3 (4.2-5.4); White Blood Count 12.3 K/mm3 (4.4-11.0)
[2025-03-29 21:42] LABS: D-Dimer Quantitative (DVT/PE) 0.27 FEU/ug/m (0.27-0.49)
[2025-03-29 21:48] VITALS: BP 124/70; PULSE 91; RESP 17; O2SAT 97
[2025-03-29 21:49] LABS: Anion Gap 14 (5-15); BUN 13 mg/dL (4-19); BUN/Creat Ratio 15.3 RATIO (10-20); Calcium,Total 9.4 mg/dL (7.6-11.0); Carbon Dioxide 18.6 mmol/L (21.0-32.0); Chloride 107 mmol/L (98-108); Creatinine, Serum 0.86 mg/dL (0.70-1.20); EST Glomerular Filtration Rate 92 (>60); Estimated Creatinine Clearance 100.06 ml/min (50-250); Glucose 132 mg/dL (70-99); Potassium 3.8 mmol/L (3.3-5.1); Sodium Level 140 mmol/L (133-145); Troponin T High Sensitivity < 6 ng/L (<=14)
[2025-03-29 22:04] VITALS: BP 107/78; PULSE 86; RESP 12; O2SAT 99
--- NOTE | 2025-03-29 22:15 | RAD_ITS ---
PROCEDURE: CHEST PA AND LATERAL 03/29/2025 REASON FOR EXAM: DYSPNEA TECHNIQUE: Frontal and lateral views of the chest. COMPARISON: None. FINDINGS: Hardware: None. Heart: The heart size is normal. Mediastinum: The mediastinal contour is unremarkable. Lungs: The lungs are clear. Bones: The bones are unremarkable. RAD/Chest PA and Lateral IMPRESSION: NO ACUTE FINDINGS. Reading Location: [place] [address]
--- NOTE | 2025-03-29 22:24 | EDS_ITS ---
HPI History of Present Illness Chief Complaint: Shortness of Breath Informant: patient Onset/Context/Timing Onset: Days (3) Context: gradual Timing: Continuous Quality: Positive for Dyspnea on exertion Worsened by: - (Deep breathing) Relieved by: Nothing Associated Symptoms Negative for cough, rhinorrhea, post nasal drip, ear pain, fever, sore throat, chills, sweats, clear sputum, white sputum, yellow sputum or green sputum Chest Pain: Positive for Tightness (Upper chest) Narrative Narrative: Patient presents with shortness of breath that has been getting worse over the past 3 days. Patient states it is gradually getting worse. Patient states it is worse when she takes deep breath. Patient describes her pain as a tightness. Patient states it started over the left upper chest and now is across to the right chest. Patient states nothing seems to help with her breathing. Patient denies any cough. Patient denies any fevers or chills. Patient denies any sore throat or rhinorrhea. Patient states she has a history of PE approximately 12 years ago. Patient is not on any anticoagulants. [facility] Medical History (Updated 03/29/25 @ 22:[address] Karlo Ferreira, ) Pseudotumor cerebri History of pulmonary embolism Home Medications ?Medication ?Instructions ?Recorded ?Last Taken ?Type ibuprofen 600 mg tablet 600 mg PO Q6H PRN PRN Mild P ain 04/15/19 Unknown Rx (-01/17) #30 tabs acetazolamide 500 mg 500 mg PO 07/18/23 Unknown H istory capsule,extended release topiramate 25 mg tablet mg PO 07/18/23 Unknown Histo ry albuterol sulfate 90 mcg/actuation 1 - 2 puff inhalati on Q4H PRN PRN 03/29/25 Unknown Rx aerosol inhaler (Ventolin HFA) Wheezing ##1 Allergy/AdvReac Type Severity Reaction Status Date / Time clindamycin Allergy Severe face Verified 03/29/25 20:33 swelling, itchy, redness Family History Grandfather Diabetes Grandmother Diabetes Surgical History Hx of tonsillectomy Hx of appendectomy Previous delivery affecting Social History Smoking Status: Current every day smoker tobacco type: cigarettes alcohol intake: never ROS ROS ED Constitutional Constitutional ED: Denies chills or fever(s) Eyes Eyes: Denies blurry vision or change in vision ENT ENT ED: Denies rhinorrhea or sore throat Cardiovascular Cardiovascular: Denies chest pain or palpitations Respiratory/Chest Respiratory/Chest: Reports dyspnea; Denies cough Gastrointestinal Gastrointestinal: Denies nausea or vomiting Genitourinary Genitourinary ED: Denies dysuria or hematuria Musculoskeletal Musculoskeletal: Reports back pain; Denies neck pain Integumentary Denies abscess or rash Neurologic Neurologic: Denies headache(s) or weakness Allergic/Immunologic Allergic/Immunologic ED: Denies mouth swelling or urticaria EXAM Physical Exam Const Vital Signs: 03/29/25 20:31 03/29/25 20:44 03/29/25 21:48 Temperature 98.4 F Temperature Source Oral Pulse Rate 108 H 91 Respiratory Rate 18 17 Respiratory Effort Short of Breath Respiratory Depth Shallow Blood Pressure 166/92 H 124/70 H Blood Pressure Mean 116 88 Pulse Ox 100 97 Oxygen Delivery Method Room Air Room Air Room Air 03/29/25 22:04 03/29/25 23:00 03/29/25 23:10 Temperature 97.5 F L Temperature Source Pulse Rate 86 78 72 Respiratory Rate 12 20 H 19 H Respiratory Effort Respiratory Depth Blood Pressure 107/78 107/78 Blood Pressure Mean 87 87 Pulse Ox 99 99 99 Oxygen Delivery Method Room Air Positive well nourished and well developed Constitutional Narrative: BMI is 44.7 General Appearance ED: well developed and NAD HEENT Reports moist mucous membranes Neck supple, no meningeal signs and no JVD Resp normal respiratory effort and clear to auscultation bilaterally Cardio regular rate and regular rhythm GI non-tender and non-distended Palpation: soft Extremity normal to inspection General Extremety ED: Negative for edema or tenderness General Extremity: Negative for edema Neuro oriented x3, CN's II-XII intact bilaterally and no sensory deficits noted [place] Coma Scale: document GCS findings Spontaneous Obeys Commands Oriented 15 Sensorium / Orientation: alert Speech: speech normal Motor Exam: strength 5/5 throughout Psych mental status grossly normal MDM MDM MDM Narrative Medical decision making narrative: Differential diagnosis includes pneumonia, bronchitis, pulmonary embolism, cardiac dysrhythmia, cardiac ischemia, electrolyte abnormality, and anxiety. EKG will be obtained to assess for cardiac dysrhythmia and cardiac ischemia. Chest x-ray will be obtained to assess for pneumonia and bronchitis. CBC will be obtained to assess for leukocytosis and anemia. Basic metabolic profile will be obtained assess for electrolyte abnormality renal function. High-sensitivity troponin will be obtained to assess for cardiac ischemia. D-dimer will be obtained assess for pulmonary embolism. History & Record Review Additional record(s) reviewed:: Prior labs Lab Data Attestation: I reviewed the patient's lab results. Lab results narrative: CBC was reviewed. There is a slight leukocytosis of 12.3. The remainder is within normal limits. Basic metabolic profile was reviewed and was within normal limits. High-sensitivity troponin was reviewed and was normal at less than 6. D-dimer was reviewed and was normal at 0.27. Labs: Laboratory Results - last 24 hr 03/29/25 21:20 WBC 12.3 H RBC 5.11 Hgb 14.4 Hct 41.8 MCV 81.8 MCH 28.2 MCHC 34.4 RDW Std Deviation 38.3 RDW Coeff of Abimbola 12.9 Plt Count 445 MPV 10.3 Immature Gran % (Auto) 0.200 Neut % (Auto) 56.4 Lymph % (Auto) 35.5 Creek % (Auto) 6.1 Eos % (Auto) 1.2 Baso % (Auto) 0.6 Absolute Neuts (auto) 6.9 Absolute Lymphs (auto) 4.37 Nucleated RBC % 0 D-Dimer Quant (PE/DVT) 0.27 Sodium 140 Potassium 3.8 Chloride 107 Carbon Dioxide 18.6 L Anion Gap 14 BUN 13 Creatinine 0.86 Estim Creat Clear Calc 100.06 Est GFR (MDRD) Non-Af 92 BUN/Creatinine Ratio 15.3 Glucose 132 H Calcium 9.4 Troponin T High Sens < 6 Radiography Chest X-Ray - ED: 2 View, Read by ED Physician, Read by Radiologist and No Acute Disease Diagnostic Testing: Clinical Impression(s) from Imaging Studies Chest X-Ray 03/29/25 22:15 IMPRESSION: NO ACUTE FINDINGS. Reading Location: [place] [id number] PA and lateral chest x-ray was obtained. There are 2 views. On my independent interpretation, lung heard are clear. There is normal cardiac silhouette. Bony thorax is normal. There is no acute process noted. Radiologist also interpreted the x-ray and agrees. EKG Initial EKG: Attestation: I personally reviewed and interpreted this EKG as follows: Interpretation: Sinus Rhythm (78) and No Acute Injury Pattern Comments: EKG was obtained. On my independent interpretation, it showed a normal sinus rhythm with a rate of 78. SC interval, QRS interval, and QTc intervals were all normal. [place] was normal. There are no acute ST or T wave changes. Prior EKG tracings: available for review Prior: Unchanged (06/29/2022) Treatment and Re-Evaluation :: Patient was advised of her findings. Patient has a HEART score of 0. Patient was advised that this is low risk for acute cardiac event. Patient was instructed to follow-up with her primary care physician in 5 to 7 days. Patient was instructed to return if worse in any way. Patient understood and was agree able with the plan. All questions were answered. Discharge Plan Triage Chief Complaint: Shortness of Breath Other Complaint: Chest Pain ED Provider: Karlo Ferreira Dx/Rx/DC Orders Clinical Impression: Dyspnea, Asthma Instructions: ED Dyspnea Prescriptions: New albuterol sulfate [Ventolin HFA] 90 mcg/actuation HFA aerosol inhaler 1 - 2 puff inhalation Q4H PRN PRN (Reason: Wheezing) Qty: 1 0RF No Action topiramate 25 mg tablet PO acetazolamide 500 mg capsule, extended release 500 mg PO ibuprofen 600 MG tablet 600 mg PO Q6H PRN PRN (Reason: Mild Pain (1-310)) Qty: 30 1RF Primary Care Provider: Annmarie Hanna NP Referrals: Annmarie Hanna NP, CUP MACHINE OPERATOR-C [Primary Care Provider] - 5-7 Days Print Language: Belarusian Disposition Disposition: Home, Self Care Discharge Date/Time: 03/29/25 23:12
[2025-03-29 23:00] VITALS: PULSE 78; RESP 20; O2SAT 99
[2025-03-29 23:10] VITALS: BP 107/78; PULSE 72; RESP 19; TEMP 36.4; O2SAT 99
== END 2025-03-29 23:12 | disposition home or self-care (01) ==
PROVIDERS: Emergency Provider Emergency Medicine; PCP Registered Nurse; Visit Provider Emergency Medicine
DX: J45.909 Unspecified asthma, uncomplicated (principal); M54.9 Dorsalgia, unspecified; F17.210 Nicotine dependence, cigarettes, uncomplicated; Z86.711 Personal history of pulmonary embolism
CPT/HCPCS: 71046; 80048; 84484; 85025; 85379; 93005; 99284; A4216

== ENCOUNTER → 2025-06-14 | Outpatient (CLI) | payer OTHER, SELFPAY ==
--- NOTE | 2025-06-14 14:57 | RAD_ITS ---
PROCEDURE: CERV SPINE 4 OR 5 VIEWS 06/14/2025 REASON FOR EXAM: NECK PAIN TECHNIQUE: CERV SPINE 4 OR 5 VIEWS COMPARISON: None. FINDINGS: No evidence of acute fracture or subluxation. Preserved vertebral body heights. Alignment is maintained, although there is straightening of the cervical lordosis. Minimal spondylotic changes, most evident at C5-6 with small anterior bridging osteophytosis, and mild facet hypertrophic arthropathy. No substantial osseous neural foraminal narrowing is appreciated on either side. Unremarkable soft tissues. RAD/Cerv Spine 4 or 5 Views IMPRESSION: No evidence of fracture or subluxation. Minimal spondylotic changes. Reading Location: [id number]
== END | disposition home or self-care (01) ==
LOC: RAD 14:52
PROVIDERS: PCP Registered Nurse; Referring Provider Family Medicine; Visit Provider Family Medicine
DX: M54.2 Cervicalgia (principal)
CPT/HCPCS: 72050

== ENCOUNTER 2025-06-27 19:28 | Emergency (ER) | payer OTHER, SELFPAY ==
[2025-06-27 19:28] VITALS: BP 146/106; PULSE 118; RESP 18; TEMP 36.8; O2SAT 98; BMI 46.0
--- NOTE | 2025-06-27 19:45 | EKG12_ITS ---
Test Reason : CP Blood Pressure : */* mmHG Vent. Rate : 93 BPM Atrial Rate : 93 BPM P-R Int : 128 ms QRS Dur : 84 ms QT Int : 366 ms P-R-T Axes : 30 -1 32 degrees QTcB Int : 455 ms Normal sinus rhythm Minimal voltage criteria for LVH, may be normal variant ( R in aVL ) Borderline ECG Confirmed by VIANNEY TIJERINA, RD ([id number]), slot editor KEMAR SORTO ([id number]) on 06/28/2025 8:50:47 AM Referred By: TL Confirmed By: RD FAITH MD
--- NOTE | 2025-06-27 19:58 | RAD_ITS ---
PROCEDURE: CHEST PA AND LATERAL 06/27/2025 REASON FOR EXAM: CHEST PAIN TECHNIQUE: CHEST PA AND LATERAL COMPARISON: 03/29/2025 FINDINGS: Lungs/Pleura: Clear. No pneumothorax or pleural effusion. Heart/Mediastinum: Normal in size. No vascular congestion. Bones/Soft tissues: Unremarkable. RAD/Chest PA and Lateral IMPRESSION: No acute cardiopulmonary disease. Reading Location: [id number]
[2025-06-27 20:12] LABS: Hematocrit 40.4 % (37-47); Hemoglobin 13.7 g/dL (12.0-15.0); Immature Granulocytes Count 0.030 X10^3/uL (0.0-0.0); Mean Corp Hgb Conc 33.9 g/dL (32-36); Mean Corpuscular Volume 81.9 fL (81-99); Mean Platelet Vol. 10.2 fl (6.2-12.0); NRBC Flagged by Analyzer 0 % (0-5); Platelet Count 390 K/mm3 (150-450); RBC Distribution Width CV 12.7 % (11.6-14.6); RBC Distribution Width SD 38.1 fl (35.1-43.9); Red Blood Count 4.93 M/mm3 (4.2-5.4); White Blood Count 10.5 K/mm3 (4.4-11.0)
[2025-06-27 20:28] VITALS: BP 132/82; PULSE 97; RESP 14; O2SAT 99
[2025-06-27 20:33] LABS: Anion Gap 13 (5-15); BUN 14 mg/dL (4-19); BUN/Creat Ratio 15.9 RATIO (10-20); Calcium,Total 9.1 mg/dL (7.6-11.0); Carbon Dioxide 22.1 mmol/L (21.0-32.0); Chloride 104 mmol/L (98-108); Estimated Creatinine Clearance 99.49 ml/min (50-250); Glucose 106 mg/dL (70-99); Potassium 3.6 mmol/L (3.3-5.1); Troponin T High Sensitivity < 6 ng/L (<=14)
[2025-06-27 21:00] VITALS: BP 132/81; PULSE 75; RESP 16; O2SAT 100
[2025-06-27 21:33] LABS: D-Dimer Quantitative (DVT/PE) < 0.27 FEU/ug/m (0.27-0.49)
[2025-06-27 22:00] VITALS: BP 128/72; PULSE 100; RESP 19; O2SAT 97
--- NOTE | 2025-06-27 22:04 | EX.ED.DYSGE1 ---
HPI History of Present Illness Chief Complaint: Palpitations Detail of Chief Complaint: Palpitations, shortness of breath and chest pain that occurred at rest Informant: patient Onset/Context/Timing Onset: Today and Hours Context: Sudden Onset Quality: Palpitations, shortness of breath central chest pain Location: Cardiorespiratory Current Severity: Mild Maximum Severity: Moderate Worsened by: Nothing Relieved by: Nothing Associated Symptoms Associated Symptoms: No other symptoms Narrative Narrative: Patient is a 30-year-old female. She has history of pulmonary embolus 12 years ago during her . She presents from work because of abrupt onset of shortness of breath, chest pain and palpitations. She noted that her heart rate was fast. She denies leg pain, swelling or discoloration. She denies recent surgery, travel or hypercoagulable state. Prior similar symptoms: No Recent Illness/Hospitalization: No PFSH PFSH Medical History Pseudotumor cerebri History of pulmonary embolism Home Medications ?Medication ?Instructions ?Recorded ?Last Taken ?Type ibuprofen 600 mg tablet 600 mg PO Q6H PRN PRN Mild Pain 04/15/19 Unknown Rx () #30 tabs acetazolamide 500 mg 500 mg PO 07/18/23 Unknown History capsule,extended release topiramate 25 mg tablet 50 mg PO 07/18/23 Unknown History albuterol sulfate 90 mcg/actuation 1 - 2 puff inhalation Q4H PRN PRN 03/29/25 Unknown Rx aerosol inhaler (Ventolin HFA) Wheezing ##1 Allergy/AdvReac Type Severity Reaction Status Date / Time clindamycin Allergy Severe face Verified 06/27/25 19:30 swelling, itchy, redness Family History Grandfather Diabetes Grandmother Diabetes Surgical History Hx of tonsillectomy Hx of appendectomy Previous delivery affecting Social History (Updated 06/27/25 @ 22:[address] Jasper Hernandez MD) household members: family Smoking Status: Former smoker alcohol intake: never ROS ROS ED Constitutional Constitutional ED: Denies chills, fever(s), subjective, sweats or weight loss Eyes Eyes: Denies blurry vision or change in vision ENT ENT ED: Denies rhinorrhea or sore throat Cardiovascular Cardiovascular: Reports chest pain, palpitations and racing heartbeat; Denies orthopnea or paroxysmal nocturnal dyspnea Respiratory/Chest Respiratory/Chest: Reports dyspnea; Denies cough, orthopnea, paroxysmal nocturnal dyspnea or sputum Gastrointestinal Gastrointestinal: Denies abdominal pain, nausea or vomiting Genitourinary Genitourinary ED: Denies dysuria, hematuria or urinary frequency Musculoskeletal Musculoskeletal: Denies arthralgias or myalgias Integumentary Denies rash Neurologic Neurologic: Denies paresthesias or weakness Psychiatric Psychiatric: Reports anxiety Hematologic/Lymphatic Hematologic/Lymphatic: Reports systems reviewed and no addt'l complaints, except as documented EXAM Physical Exam Const Vital Signs: 06/27/25 19:28 06/27/25 20:17 06/27/25 20:25 Temperature 98.3 F Temperature Source Oral Pulse Rate 118 H Respiratory Rate 18 Respiratory Effort Normal Non-Labored Respiratory Pattern Normal Blood Pressure 146/106 H Blood Pressure Mean 119 Pulse Ox 98 Oxygen Delivery Method Room Air Room Air 06/27/25 20:28 06/27/25 21:00 06/27/25 22:00 Temperature Temperature Source Pulse Rate 97 75 100 Respiratory Rate 14 16 19 H Respiratory Effort Respiratory Pattern Blood Pressure 132/82 H 132/81 H 128/72 H Blood Pressure Mean 98 94 90 Pulse Ox 99 100 97 Oxygen Delivery Method Room Air Positive well nourished Constitutional Narrative: BMI is 46. Patient seems slightly anxious. She is tachycardic. Blood pressure is elevated. General Appearance ED: Negative for cyanotic, diaphoretic or pallor HEENT Reports moist mucous membranes HEENT Narrative: Head is atraumatic and normocephalic. Ears normal. Eyes PERRL and EOMs intact bilaterally General Eye ED: Negative for pale conjunctiva or scleral icterus Neck no lymphadenopathy, supple and no JVD Resp normal respiratory effort and clear to auscultation bilaterally Cardio regular rhythm, S1 normal heart sound and S2 normal heart sound Rate: tachycardic GI normal to inspection, nondistended, normoactive bowel sounds, non-tender, non-distended and no masses; Negative for hepatosplenomegaly Back/Spine no CVA tenderness Extremity Extremity Narrative: There is no asymmetry, swelling, discoloration, leg vein distention, palpable cords or tenderness along the distribution of the deep venous system. Neuro oriented x3 and CN's II-XII intact bilaterally Sensorium / Orientation: alert Psych Mood & Affect: anxious Skin no rashes or lesions noted, no wounds and skin turgor normal General Skin Exam: Negative for jaundice or pallor MDM MDM MDM Narrative Medical decision making narrative: Differential diagnosis is chest pain of unknown etiology, pneumothorax, pulmonary embolus, cardiac ischemia. Since she has a prior history of PE is tachycardic she is not PERC negative therefore will obtain a D-dimer. Troponins were ordered because there is a family history of cardiac disease. CBC to assess white count differential. Electrolyte panel to assess renal function. Lab Data Attestation: I reviewed the patient's lab results. Lab results narrative: CBC is unremarkable. D-dimer is less than 0.27. First troponin is less than 6. Electrolyte panel with slight elevation in glucose of 106 with a normal CO2 anion gap. Labs: Laboratory Results - last 24 hr 06/27/25 06/27/25 19:45 21:50 WBC 10.5 RBC 4.93 Hgb 13.7 Hct 40.4 MCV 81.9 MCH 27.8 MCHC 33.9 RDW Std Deviation 38.1 RDW Coeff of Abimbola 12.7 Plt Count 390 MPV 10.2 Immature Gran % (Auto) 0.300 Neut % (Auto) 48.4 Lymph % (Auto) 39.5 [place] % (Auto) 10.4 H Eos % (Auto) 0.8 Baso % (Auto) 0.6 Absolute Neuts (auto) 5.1 Absolute Lymphs (auto) 4.13 Nucleated RBC % 0 D-Dimer Quant (PE/DVT) < 0.27 L Sodium 139 Potassium 3.6 Chloride 104 Carbon Dioxide 22.1 Anion Gap 13 BUN 14 Creatinine 0.88 Estim Creat Clear Calc 99.49 Est GFR (MDRD) Non-Af 90 BUN/Creatinine Ratio 15.9 Glucose 106 H Calcium 9.1 Troponin T High Sens < 6 Troponin T Hi Sens 2 Hr 6 Second troponin 6. Since both troponins were normal we will discharge to home Radiography Chest X-Ray - ED: 2 View, Read by ED Physician (Independently reviewed interpreted by me at 2009.), Normal, Heart, Lungs, Mediastinum, Bony Structures and No Acute Disease Diagnostic Testing: Clinical Impression(s) from Imaging Studies Chest X-Ray 06/27/25 19:58 IMPRESSION: No acute cardiopulmonary disease. 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, pneumonia Reason(s) pneumonia less likely: Positive for no infiltrate on CXR, no elevation in WBC count, no noted fever and symptoms not consistent with acute infection and aortic dissection Reason(s) Aortic dissection less likely:: Positive for normal vascular exam, no history of HTN, normal neurological exam, no significant risk factors for dissection, no widened mediastinum on CXR, no ripping/tearing pain, no pain to back, blood pressure appropriate in ED and other (D-dimer is normal.) Discharge Plan Triage Chief Complaint: Palpitations ED Provider: Jasper Hernandez Dx/Rx/DC Orders Clinical Impression: Chest pain, Sinus tachycardia, Acute dyspnea, Hx pulmonary embolism, Adult BMI 45.0-49.9 kg/sq m Instructions: ED Chest Pain, Uncertain Cause Prescriptions: No Action topiramate 25 mg tablet 50 mg PO acetazolamide 500 mg capsule, extended release 500 mg PO ibuprofen 600 MG tablet 600 mg PO Q6H PRN PRN (Reason: Mild Pain (1-310)) Qty: 30 1RF albuterol sulfate [Ventolin HFA] 90 mcg/actuation HFA aerosol inhaler 1 - 2 puff inhalation Q4H PRN PRN (Reason: Wheezing) Qty: 1 0RF Primary Care Provider: Annmarie Hanna NP Referrals: Annmarie Hanna NP, EDITOR BOOK-C [Primary Care Provider] - 3-5 Days Print Language: Pashto Disposition Disposition: Home, Self Care
[2025-06-27 22:17] LABS: Troponin T High Sens 2 HR 6 ng/L (<=14)
[2025-06-27 22:32] VITALS: BP 128/78; PULSE 76; RESP 17; TEMP 36.4; O2SAT 100
== END 2025-06-27 22:34 | disposition home or self-care (01) ==
PROVIDERS: Emergency Provider Emergency Medicine; PCP Registered Nurse; Visit Provider Emergency Medicine
DX: R07.9 Chest pain, unspecified (principal); R00.0 Tachycardia, unspecified; R06.02 Shortness of breath; Z87.891 Personal history of nicotine dependence; Z86.711 Personal history of pulmonary embolism
CPT/HCPCS: 71046; 80048; 84484; 85025; 85379; 93005; 99283; A4216

== ENCOUNTER → 2025-08-24 | Outpatient (CLI) | payer OTHER, SELFPAY ==
--- NOTE | 2025-08-24 09:18 | US_ITS ---
PROCEDURE: SPLEEN 08/24/2025 REASON FOR EXAM: LUQ PAIN TECHNIQUE: Procedure Code: USSP Modality: US Procedure: SPLEEN COMPARISON: None FINDINGS: Spleen: The spleen is not enlarged. It 9.2 cm 3.9 cm 3.5 cm. No focal lesion is seen. Left kidney: The left kidney measures 11.4 cm 4.8 cm 5 cm. It is unremarkable. Pancreas: No abnormality is seen. US/Spleen IMPRESSION: Unremarkable sonogram of the left upper quadrant. Reading Location: [place] [id number]
== END | disposition home or self-care (01) ==
LOC: US 09:17
PROVIDERS: PCP Registered Nurse; Referring Provider Nurse Practitioner Primary Care; Visit Provider Nurse Practitioner Primary Care
DX: R10.12 Left upper quadrant pain (principal)
CPT/HCPCS: 76705